=== PATIENT | male | born 1960 | race Caucasian/White ===

== ENCOUNTER 2022-06-01 10:08 | Inpatient (IN) | payer OTHER ==
--- NOTE | 2022-06-01 10:23 | ED ---
General Adult HPI - General Source: patient, RN notes reviewed Mode of arrival: ambulatory Limitations: no limitations <Reji Damico - Last Filed: 06/01/22 10:23> <Jan Worrell - Last Filed: 06/01/22 13:01> - General Stated complaint: weakness Time Seen by Provider: 06/01/22 10:20 - History of Present Illness Initial comments: 62-year-old male presents emergency Department with chief complaint of generalized weakness. Patient states he has not felt well in the last couple days states that worsened overnight. Patient states that he has nausea vomiting,diarrhea. Patient states he has shortness of breath and cough. He states he just feels very rundown. Patient states she does have a history of cardiac stent, prior stroke. Patient has a focal is currently. Patient denies any dysuria hematuria. Patient denies any noted sick contacts. Patient states the weakness has been going on but has gradually worsened last 2 days. (Reji Damico) Dictation was produced using [employer] dictation software. please excuse any grammatical, word or spelling errors. Chief Complaint: 62-year-old male presents emergency department for 2 days of weakness and diaphoresis History of Present Illness: Patient is 60-year-old male has multiple comorbidities. Over the last 48 hours she's been having worsening weakness, URI symptoms. States that he feels so weak that he is unable to perform his activities of daily living. Patient is very worried about symptoms approximately him to stay with family member in case she got worse. Patient been very diaphoretic. He does have a cough that is not productive. Denies any chest pain. No abdominal pain. No obvious sick contacts. The ROS documented in this emergency department record has been reviewed and confirmed by me. Those systems with pertinent positive or negative responses have been documented in the HPI. All other systems are other negative and/or noncontributory. PHYSICAL EXAM: General Impression: Alert and oriented x3, not in acute distress, diaphoretic HEENT: Normocephalic atraumatic, extra-ocular movements intact, pupils equal and reactive to light bilaterally, mucous membranes Cardiovascular: Heart regular rate and rhythm Chest: Able to complete full sentences, no retractions, no tachypnea Abdomen: abdomen soft, non-tender, non-distended, no organomegaly Musculoskeletal: Pulses present and equal in all extremities, no peripheral edema Motor: no focal deficits noted Neurological: CN II-XII grossly intact, no focal motor or sensory deficits noted Skin: Intact with no visualized rashes Psych: Normal affect and mood ED course: 62-year-old male presents with constitutional symptoms for the last 1-2 days. Vital signs upon arrival are within acceptable limits. Is not hypoxic. Laboratory evaluation obtained. In concentration hemoglobin of 18.3. Metabolic panel shows slight elevation of renal markers. Lactic acidosis 4.2. Coronal virus positive. Chest x-ray is nonacute. Nursing notes and chart review was performed Given patient's lactic acidosis and signs of malaise at the bedside to be admitted observation. Patient ordered for antivirals. Patient given fluids. [facility] Dr. Donovan request infectious disease being consulted. Was pt. sent in by a medical professional or institution? @ no Did you speak to anyone other than the patient for history? @ no Did you review nursing and triage notes? @ yes, agree Were old charts reviewed? @ no Differential Diagnosis? @ [facility] Differential Fever: Pneumonia, viral URI, endocarditis, myocarditis, pericarditis, otitis, sinusitis, peritonsillar Abscess, retropharyngeal Abscess, epiglottitis, peritonitis, appendicitis, Yin cystitis, diverticulitis, hepatitis, colitis, UTI, PID, TOA, pyelonephritis, prostatitis, epididymitis, meningitis, encephalitis, pulmonary embolism, CVA, thyroid storm, pancreatitis, adrenal crisis, cavernous sinus thrombosis this is not meant to be an all-inclusive list. EKG interpreted by me (3pts min.)? @ None X-rays interpreted by me (1pt min.)? @See above CT interpreted by me (1pt min.)? @ none U/S interpreted by me (1pt. min.)? @ none What testing was considered but not performed? (CT, X-rays, U/S, labs)? Why? @ CT, X-rays, U/S, labs? Why? What meds were considered but not given? Why? @ none Did you discuss the management of the patient with other professionals? @Dr. Donovan of [facility] hospitalist group Did you reconcile home meds? @ none Was smoking cessation discussed for >3mins.? @ none Was critical care preformed (if so, how long)? @ none Were there social determinants of health that impacted care today? How? ( Homelessness, low income, unemployed, alcoholism, drug addiction, transportation, low edu. Level, literacy, decrease access to med. care, prison, rehab)? @ no Was there de-escalation of care discussed even if they declined? (Discuss DNR or withdrawal of care, Hospice)? @ na What co-morbidities impacted this encounter? (DM, HTN, Smoking, COPD, CAD, Cancer, CVA, Hep., AIDS, mental health diagnosis, sleep apnea, morbid obesity)? @ ma Was patient admitted / discharged? @Admitted Undiagnosed new problem with uncertain prognosis? @ none Drug Therapy requiring intensive monitoring for toxicity (Heparin, Nitro, Insulin, Cardizem)? @ none Were any procedures done? @ none Diagnosis/symptom? @COVID-19, lactic acidosis Acute, or Chronic, or Acute on Chronic? @acute Uncomplicated (without systemic symptoms) or Complicated (systemic symptoms)? @Complicated Side effects of treatment? @ none Exacerbation, Progression, or Severe Exacerbation] @ no Poses a threat to life or bodily function? @ yes (Jan Worrell) - Related Data Previous Rx's Medication Instructions Recorded Molnupiravir [Lagevrio (Eua)] 800 mg PO BID 5 Days #40 cap 06/01/22 Allergies Allergy/AdvReac Type Severity Reaction Status Date / Time Penicillins Allergy Rash/Hives Verified 06/01/22 10:23 Review of Systems ROS Other: All systems not noted in ROS Statement are negative. <Reji Damico - Last Filed: 06/01/22 10:23> ROS Other: All systems not noted in ROS Statement are negative. <Jan Worrell - Last Filed: 06/01/22 13:01> ROS Statement: Those systems with pertinent positive or pertinent negative responses have been documented in the HPI. Course Vital Signs 06/01/22 06/01/22 06/01/22 10:19 11:30 12:00 Temperature 97.4 F L Pulse Rate 102 H 96 93 Respiratory 22 20 18 Rate Blood Pressure 105/75 105/68 87/76 O2 Sat by Pulse 97 95 93 L Oximetry Medical Decision Making - Lab Data Result diagrams: 06/01/22 10:26 06/01/22 10:26 <Jan Worrell - Last Filed: 06/01/22 13:01> - Lab Data Lab Results 06/01/22 06/01/22 06/01/22 Range/Units 10:26 10:26 10:26 WBC 10.5 (3.8-10.6) k/uL RBC 6.23 H (4.30-5.90) m/uL Hgb 18.3 H (13.0-17.5) gm/dL Hct 55.3 H (39.0-53.0) % MCV 88.8 (80.0-100.0) fL MCH 29.3 (25.0-35.0) pg MCHC 33.0 (31.0-37.0) g/dL RDW 13.4 (11.5-15.5) % Plt Count 175 (150-450) k/uL MPV 8.1 Neutrophils % 81 % Lymphocytes % 9 % Monocytes % 7 % Eosinophils % 0 % Basophils % 1 % Neutrophils # 8.5 H (1.3-7.7) k/uL Lymphocytes # 1.0 (1.0-4.8) k/uL Monocytes # 0.7 (0-1.0) k/uL Eosinophils # 0.0 (0-0.7) k/uL Basophils # 0.1 (0-0.2) k/uL Manual Slide Review Performed RBC Morphology Normal Sodium 132 L (137-145) mmol/L Potassium 4.8 (3.5-5.1) mmol/L Chloride 98 (98-107) mmol/L Carbon Dioxide 23 (22-30) mmol/L Anion Gap 11 mmol/L BUN 27 H (9-20) mg/dL Creatinine 1.32 H (0.66-1.25) mg/dL Est GFR (CKD-EPI)AfAm 67 (>60 ml/min/1.73 sqM) Est GFR (CKD-EPI)NonAf 58 (>60 ml/min/1.73 sqM) Glucose 200 H (74-99) mg/dL Plasma Lactic Acid Warren (0.7-2.0) mmol/L Calcium 8.6 (8.4-10.2) mg/dL Magnesium 2.0 (1.6-2.3) mg/dL Total Bilirubin 1.5 H (0.2-1.3) mg/dL AST 30 (17-59) U/L ALT 24 (4-49) U/L Alkaline Phosphatase 92 (38-126) U/L Troponin I (0.000-0.034) ng/mL Total Protein 6.9 (6.3-8.2) g/dL Albumin 3.5 (3.5-5.0) g/dL Influenza Type A (PCR) Not Detected (Not Detectd) Influenza Type B (PCR) Not Detected (Not Detectd) RSV (PCR) Not Detected (Not Detectd) SARS-CoV-2 (PCR) Detected A (Not Detectd) 06/01/22 06/01/22 Range/Units 10:26 10:26 WBC (3.8-10.6) k/uL RBC (4.30-5.90) m/uL Hgb (13.0-17.5) gm/dL Hct (39.0-53.0) % MCV (80.0-100.0) fL MCH (25.0-35.0) pg MCHC (31.0-37.0) g/dL RDW (11.5-15.5) % Plt Count (150-450) k/uL MPV Neutrophils % % Lymphocytes % % Monocytes % % Eosinophils % % Basophils % % Neutrophils # (1.3-7.7) k/uL Lymphocytes # (1.0-4.8) k/uL Monocytes # (0-1.0) k/uL Eosinophils # (0-0.7) k/uL Basophils # (0-0.2) k/uL Manual Slide Review RBC Morphology Sodium (137-145) mmol/L Potassium (3.5-5.1) mmol/L Chloride (98-107) mmol/L Carbon Dioxide (22-30) mmol/L Anion Gap mmol/L BUN (9-20) mg/dL Creatinine (0.66-1.25) mg/dL Est GFR (CKD-EPI)AfAm (>60 ml/min/1.73 sqM) Est GFR (CKD-EPI)NonAf (>60 ml/min/1.73 sqM) Glucose (74-99) mg/dL Plasma Lactic Acid Warren 4.2 H* (0.7-2.0) mmol/L Calcium (8.4-10.2) mg/dL Magnesium (1.6-2.3) mg/dL Total Bilirubin (0.2-1.3) mg/dL AST (17-59) U/L ALT (4-49) U/L Alkaline Phosphatase (38-126) U/L Troponin I 0.020 (0.000-0.034) ng/mL Total Protein (6.3-8.2) g/dL Albumin (3.5-5.0) g/dL Influenza Type A (PCR) (Not Detectd) Influenza Type B (PCR) (Not Detectd) RSV (PCR) (Not Detectd) SARS-CoV-2 (PCR) (Not Detectd) Disposition <Reji Damico - Last Filed: 06/01/22 10:23> Decision Time: 13:01 <Jan Worrell - Last Filed: 06/01/22 13:01> Clinical Impression: Coronavirus infection, Lactic acidosis Disposition: ADMITTED IP TO THIS HOSP Condition: Fair Prescriptions: Molnupiravir [Lagevrio (Eua)] 800 mg PO BID 5 Days #40 cap Referrals: Sandra Abraham DO [Primary Care Provider] - 1-2 days
[2022-06-01 11:07] LABS: Basophils # (A) 0.1 k/uL (0-0.2); Basophils % (A) 1 %; Eosinophils % (A) 0 %; HGB 18.3 gm/dL (13.0-17.5); Lymphocytes % (A) 9 %; MCH 29.3 pg (25.0-35.0); MCV 88.8 fL (80.0-100.0); Mean Platelet Volume 8.1; Monocytes # (A) 0.7 k/uL (0-1.0); Monocytes % (A) 7 %; Neutrophils # (A) 8.5 k/uL (1.3-7.7); Neutrophils % (A) 81 %; Platelet Count 175 k/uL (150-450); RBC 6.23 m/uL (4.30-5.90); RDW 13.4 % (11.5-15.5); WBC 10.5 k/uL (3.8-10.6)
--- NOTE | 2022-06-01 11:07 | XR ---
EXAMINATION TYPE: XR chest 2V DATE OF EXAM: 06/01/2022 COMPARISON: NONE HISTORY: Weakness. TECHNIQUE: Frontal and lateral views of the chest are obtained. FINDINGS: Reticular interstitial changes bilaterally greatest in the lower lungs. Some increased opa city at this level. The cardiac silhouette size is within normal limits. Overlying loop recorder not ed. The osseous structures are demineralized. Advanced degenerative change left glenohumeral joint n oted. IMPRESSION: Suspect chronic parenchymal fibrosis greatest in the lower lungs. Areas of acute infiltr ate in the lower lungs cannot be excluded. Correlate clinically. Correlation with old outside x-ray a nd/or CT would be beneficial.
[2022-06-01 11:08] LABS: HCT 55.3 % (39.0-53.0)
[2022-06-01 11:10] LABS: Albumin 3.5 g/dL (3.5-5.0); Calcium 8.6 mg/dL (8.4-10.2); Potassium 4.8 mmol/L (3.5-5.1); Total Bilirubin 1.5 mg/dL (0.2-1.3); Total Protein 6.9 g/dL (6.3-8.2)
[2022-06-01 11:51] LABS: RBC Morphology Normal
[2022-06-01] MEDS ORDERED: ACETAMINOPHEN TAB 500 MG TAB PO STA (12:03)
[2022-06-01] MEDS ORDERED: NALOXONE 0.4 MG/ML 1 ML VIAL IV PRN (13:02)
[2022-06-01] MEDS ORDERED: SODIUM CHLORIDE 0.9% 1,000 ML IV ONE (13:15)
[2022-06-01] MEDS: SODIUM CHLORIDE 0.9% 1,000 ML IV SCH (14:43)
[2022-06-01] MEDS ORDERED: hydroCHLOROthiazide 12.5 MG CAP PO PRN (14:44)
[2022-06-01] MEDS: ZINC SULFATE 220 MG CAP PO SCH (15:35)
[2022-06-01] MEDS: ENOXAPARIN 40 MG/0.4 ML SYRINGE SQ SCH (15:35)
[2022-06-01] MEDS: ASCORBIC ACID 500 MG TAB PO SCH (15:35)
[2022-06-01] MEDS: CHOLECALCIFEROL 25 MCG (1000 IU) TABLET PO SCH (15:35)
[2022-06-01] MEDS: METOPROLOL TARTRATE 12.5 MG TAB PO SCH (20:29)
[2022-06-01] MEDS: lisinopriL 20 MG TAB PO SCH (20:29)
[2022-06-01] MEDS: DEXAMETHASONE SOD PHOSPHATE 10 MG/ML 1 ML VIAL IV SCH (20:31)
[2022-06-01] MEDS: ATORVASTATIN 40 MG TAB PO SCH (20:31)
[2022-06-01] MEDS: CLOPIDOGREL 75 MG TAB PO SCH (20:31)
--- NOTE | 2022-06-01 22:14 | P.CONS ---
History of Present Illness - Reason for Consult Consult date: 06/01/22 covid 19 Requesting physician: Jan Worrell - Chief Complaint Generalized weakness and not feeling well x few days - History of Present Illness Patient is a 62-year-old male with a past medical history significant for coronary disease CVA TIA former smoker presenting to the ER this morning for evaluation of generalized weakness not feeling well symptom has been going on for the last few days and apparently got worse overnight for the patient presented to hospital patient mention he did have no strength and has been feeling weak all over no energy patient did have some nausea but no vomiting no abdominal pain did have some diarrhea patient also complaining of shortness of breath on minimal exertion even at rest he did have a cough mild to moderate int ensity mostly dry in nature with the symptoms the patient has been evaluated by ER physician on arrival to the ER the patient was afebrile and no fever has been recorded subsequently patient did have elevated lactic acid his white count is normal BUN/creatinine mildly elevated liver enzymes are normal COVID test came back positive RSV influenza was negative patient did have a chest x-ray suspect chronic parenchymal fibrosis areas of acute infiltrate cannot be excluded patient has been admitted to the hospital infectious disease was consulted for further management of underlying COVID-19 infection Review of Systems Positive point has been mentioned in the HPI rest of the systems are negative Past Medical History Past Medical History: Coronary Artery Disease (CAD), CVA/TIA History of Any Multi-Drug Resistant Organisms: None Reported Past Surgical History: Heart Catheterization With Stent Smoking Status: Former smoker Past Alcohol Use History: None Reported Past Drug Use History: None Reported Medications and Allergies Home Medications Medication Instructions Recorded Confirmed Type Atorvastatin [Lipitor] 40 mg PO HS 06/01/22 06/01/22 History Clopidogrel [Plavix] 75 mg PO HS 06/01/22 06/01/22 History Multivitamins, Thera [Multivitamin 1 tab PO DAILY 06/01/22 06/01/22 History (formulary)] Multivitamins, Thera [Multivitamin 1 tab PO HS 06/01/22 06/01/22 History (formulary)] Naproxen Sodium [Aleve] 440 mg PO DAILY PRN 06/01/22 06/01/22 History Amiodarone [Cordarone] 200 mg PO BID #30 tab 06/14/22 Rx Ferrous Sulfate [Iron (65 MG 325 mg PO BID-W/MEALS #60 tab 06/14/22 Rx Elemental)] Metoprolol Tartrate [Lopressor] 25 mg PO BID #60 tab 06/14/22 Rx Nystatin 100,000 Unit/ml Susp 500,000 unit PO QID 7 Days #140 ml 06/14/22 Rx [Mycostatin Oral Susp] lisinopriL [Zestril] 20 mg PO HS #30 tab 06/14/22 Rx Allergies Allergy/AdvReac Type Severity Reaction Status Date / Time Penicillins Allergy Rash/Hives Verified 06/01/22 13:59 Physical Exam Vitals: Vital Signs Temp Pulse Resp BP Pulse Ox 06/01/22 14:40 86 24 96/73 95 06/01/22 14:30 88 21 96/73 95 06/01/22 14:20 84 21 96/73 96 06/01/22 14:10 97.8 F 93 15 96/73 94 L 06/01/22 13:10 79 14 93/67 97 06/01/22 12:50 87/76 95 06/01/22 12:40 87/76 95 06/01/22 12:30 87/76 06/01/22 12:20 87/76 06/01/22 12:10 87/76 96 06/01/22 12:00 93 18 105/68 93 L 06/01/22 11:30 96 20 105/68 95 06/01/22 10:19 97.4 F L 102 H 22 105/75 97 Intake and Output 06/01/22 06/01/22 06/01/22 06:59 14:59 22:59 Other: Weight 102.058 kg GENERAL DESCRIPTION: Middle-aged male lying in bed, no distress. No tachypnea or accessory muscle of respiration use. HEENT: Shows Pallor , no scleral icterus. Oral mucous membrane is dry. No pharyngeal erythema or thrush NECK: Trachea central, no thyromegaly. LUNGS: Unlabored breathing. Coarse breath sounds bilaterally. HEART: S1, S2, regular rate and rhythm. No loud murmur ABDOMEN: Soft, no tenderness , guarding or rigidity, no organomegaly EXTREMITIES: No edema of feet. SKIN: No rash, no masses palpable. NEUROLOGICAL: The patient is awake, alert, oriented x3, mood and affect normal. Results CBC & Chem 7: 06/14/22 04:33 01/16/23 04:33 Labs: Abnormal Lab Results - Last 24 Hours (Table) 06/01/22 06/01/22 06/01/22 Range/Units 10:26 10:26 10:26 RBC 6.23 H (4.30-5.90) m/uL Hgb 18.3 H (13.0-17.5) gm/dL Hct 55.3 H (39.0-53.0) % Neutrophils # 8.5 H (1.3-7.7) k/uL Sodium 132 L (137-145) mmol/L BUN 27 H (9-20) mg/dL Creatinine 1.32 H (0.66-1.25) mg/dL Glucose 200 H (74-99) mg/dL Plasma Lactic Acid Warren (0.7-2.0) mmol/L Total Bilirubin 1.5 H (0.2-1.3) mg/dL SARS-CoV-2 (PCR) Detected A (Not Detectd) 06/01/22 06/01/22 Range/Units 10:26 13:26 RBC (4.30-5.90) m/uL Hgb (13.0-17.5) gm/dL Hct (39.0-53.0) % Neutrophils # (1.3-7.7) k/uL Sodium (137-145) mmol/L BUN (9-20) mg/dL Creatinine (0.66-1.25) mg/dL Glucose (74-99) mg/dL Plasma Lactic Acid Warren 4.2 H* 3.6 H* (0.7-2.0) mmol/L Total Bilirubin (0.2-1.3) mg/dL SARS-CoV-2 (PCR) (Not Detectd) Assessment and Plan (1) Pneumonia due to COVID-19 virus Current Visit: Yes Status: Acute Code(s): U07.1 - COVID-19; J12.82 - PNEUMONIA DUE TO CORONAVIRUS DISEASE 2018 SNOMED Code(s): 324920088723409316 Plan: 1patient presented to hospital with generalized weakness which is likely multifactorial in this patient with a likely component of dehydration with elevated BUN/creatinine and a component of COVID-19 pneumonia, however the patient is not running any fever and chest x-ray did not show significant groundglass opacities pathognomonic for COVID-19 infection. 2patient to continue with the Lovenox and ascorbic acid we will add dexamethasone and continue with IV fluid. 3we will check his inflammatory markers and a chest x-ray if any worsening may qualify for remdesivir. 4droplet isolation. We will follow on clinical condition and cultures to further adjust medication if needed Thank you for this consultation we will follow the patient along with you Time with Patient: Greater than 30
--- NOTE | 2022-06-01 23:33 | P.HPIM ---
History of Present Illness H&P Date: 06/01/22 Chief Complaint: Weakness 62-year-old male with a past medical history significant for coronary disease CVA TIA former smoker presenting to the ER this morning for evaluation of generalized weakness not feeling well symptom has been going on for the last few days and apparently got worse overnight for the patient presented to hospital patient mention he did have no strength and has been feeling weak all over no energy patient did have some nausea but no vomiting no abdominal pain did have some diarrhea patient also complaining of shortness of breath on minima l exertion even at rest he did have a cough mild to moderate intensity mostly dry in nature with the symptoms the patient has been evaluated by ER physician on arrival to the ER the patient was afebrile and no fever has been recorded subsequently patient did have elevated lactic acid his white count is normal BUN/creatinine mildly elevated liver enzymes are normal COVID test came back positive RSV influenza was negative patient did have a chest x-ray suspect chronic parenchymal fibrosis areas of acute infiltrate cannot be excluded patient has been admitted to the hospital Review of Systems REVIEW OF SYSTEMS: CONSTITUTIONAL: No fever, no malaise, no fatigue. HEENT: No recent visual problems or hearing problems. Denied any sore throat. CARDIOVASCULAR: No chest pain, orthopnea, PND, no palpitations, no syncope. PULMONARY: No shortness of breath, no cough, no hemoptysis. GASTROINTESTINAL: No diarrhea, no nausea, no vomiting, no abdominal pain. NEUROLOGICAL: No headaches, no weakness, no numbness. HEMATOLOGICAL: Denies any bleeding or petechiae. GENITOURINARY: Denies any burning micturition, frequency, or urgency. MUSCULOSKELETAL/RHEUMATOLOGICAL: Denies any joint pain, swelling, or any muscle pain. ENDOCRINE: Denies any polyuria or polydipsia. The rest of the 14-point review of systems is negative. Past Medical History Past Medical History: Coronary Artery Disease (CAD), CVA/TIA History of Any Multi-Drug Resistant Organisms: None Reported Past Surgical History: Heart Catheterization With Stent Smoking Status: Former smoker Past Alcohol Use History: None Reported Past Drug Use History: None Reported Medications and Allergies Home Medications Medication Instructions Recorded Confirmed Type Aspirin EC [Ecotrin Low Dose] 81 mg PO DAILY 06/01/22 06/01/22 History Atorvastatin [Lipitor] 40 mg PO HS 06/01/22 06/01/22 History Clopidogrel [Plavix] 75 mg PO HS 06/01/22 06/01/22 History Metoprolol Tartrate [Lopressor] 12.5 mg PO HS 06/01/22 06/01/22 History Molnupiravir [Lagevrio (Eua)] 800 mg PO BID 5 Days #40 cap 06/01/22 Rx Multivitamins, Thera [Multivitamin 1 tab PO DAILY 06/01/22 06/01/22 History (formulary)] Multivitamins, Thera [Multivitamin 1 tab PO HS 06/01/22 06/01/22 History (formulary)] Naproxen Sodium [Aleve] 440 mg PO DAILY PRN 06/01/22 06/01/22 History hydroCHLOROthiazide 12.5 mg PO BID PRN 06/01/22 06/01/22 History lisinopriL 40 mg PO HS 06/01/22 06/01/22 History Allergies Allergy/AdvReac Type Severity Reaction Status Date / Time Penicillins Allergy Rash/Hives Verified 06/01/22 13:59 Physical Exam Vitals: Vital Signs Temp Pulse Resp BP Pulse Ox 06/01/22 13:10 79 14 93/67 97 06/01/22 12:50 87/76 95 06/01/22 12:40 87/76 95 06/01/22 12:30 87/76 06/01/22 12:20 87/76 06/01/22 12:10 87/76 06/01/22 12:00 93 18 105/68 93 L 06/01/22 11:30 96 20 105/68 95 06/01/22 10:19 97.4 F L 102 H 22 105/75 97 Intake and Output 05/31/22 06/01/22 06/01/22 22:59 06:59 14:59 Other: Weight 102.058 kg Results CBC & Chem 7: 06/01/22 10:26 06/01/22 10:26 Labs: Abnormal Lab Results - Last 24 Hours (Table) 06/01/22 06/01/22 06/01/22 Range/Units 10:26 10:26 10:26 RBC 6.23 H (4.30-5.90) m/uL Hgb 18.3 H (13.0-17.5) gm/dL Hct 55.3 H (39.0-53.0) % Neutrophils # 8.5 H (1.3-7.7) k/uL Sodium 132 L (137-145) mmol/L BUN 27 H (9-20) mg/dL Creatinine 1.32 H (0.66-1.25) mg/dL Glucose 200 H (74-99) mg/dL Plasma Lactic Acid Warren (0.7-2.0) mmol/L Total Bilirubin 1.5 H (0.2-1.3) mg/dL SARS-CoV-2 (PCR) Detected A (Not Detectd) 06/01/22 06/01/22 Range/Units 10:26 13:26 RBC (4.30-5.90) m/uL Hgb (13.0-17.5) gm/dL Hct (39.0-53.0) % Neutrophils # (1.3-7.7) k/uL Sodium (137-145) mmol/L BUN (9-20) mg/dL Creatinine (0.66-1.25) mg/dL Glucose (74-99) mg/dL Plasma Lactic Acid Warren 4.2 H* 3.6 H* (0.7-2.0) mmol/L Total Bilirubin (0.2-1.3) mg/dL SARS-CoV-2 (PCR) (Not Detectd) Assessment and Plan Assessment: 1. Generalized weakness - Likely multifactorial; related to COVID-19 right ear infection and acute renal injury 2. COVID-19 infection; ID has been consulted and patient has been placed on COVID-19 vitamin cocktail along with subcu Lovenox; ID to recommend on need for antiviral therapy - We will monitor inflammatory markers periodically 3. Acute renal injury; cautious IV fluid hydration with normal saline; we will monitor strict MIRA's, daily weights, renal function and electrolytes; avoid nephrotoxins and hypotension 4. Lactic acidosis; likely related to acute renal injury and COVID-19 infection; continue with plan of care as indicated above and monitor lactic acid levels closely 5. Hyperbilirubinemia; possibly related to COVID-19 infection; we will monitor hepatic function panel and initiate further workup if remains elevated DVT prophylaxis; SCDs/subcu Lovenox CODE STATUS; full code
[2022-06-02] MEDS: ZINC SULFATE 220 MG CAP PO SCH (08:14)
[2022-06-02] MEDS: MULTIVITAMINS, THERA 1 EACH TAB PO SCH (08:14)
[2022-06-02] MEDS: ASCORBIC ACID 500 MG TAB PO SCH (08:14)
[2022-06-02] MEDS: DEXAMETHASONE SOD PHOSPHATE 10 MG/ML 1 ML VIAL IV SCH (08:14)
[2022-06-02] MEDS: ASPIRIN 81 MG PO SCH (08:14)
[2022-06-02] MEDS: ENOXAPARIN 40 MG/0.4 ML SYRINGE SQ SCH (08:14)
[2022-06-02] MEDS: CHOLECALCIFEROL 25 MCG (1000 IU) TABLET PO SCH (08:14)
[2022-06-02 08:38] LABS: Basophils # (A) 0.01 X 10*3/uL (0.00-0.10); Basophils % (A) 0.1 %; Eosinophils # (A) 0 X 10*3/uL (0.04-0.35); Eosinophils % (A) 0 %; HCT 48.5 % (39.6-50.0); HGB 16.4 g/dL (13.0-17.0); Immature Grans, Automated 0.5 %; Lymphocytes % (A) 9.2 %; MCH 28.7 pg (27.0-32.0); MCHC 33.8 g/dL (32.0-37.0); MCV 84.8 fL (80.0-97.0); Mean Platelet Volume 9.9 fL (9.5-12.2); Monocytes # (A) 0.76 X 10*3/uL (0.20-1.00); Monocytes % (A) 5.4 %; NRBC Per 100 WBC 0 /100 WBCS (0.0-0.0); Neutrophils # (A) 11.98 X 10*3/uL (1.80-7.70); Neutrophils % (A) 84.8 %; Platelet Count 178 X 10*3/uL (140-440); RBC 5.72 X 10*6/uL (4.40-5.60); WBC 14.12 X 10*3/uL (4.50-10.00)
[2022-06-02 09:33] LABS: African American GFR (CKD) 52.7 (60.0-200.0); Albumin 3.1 g/dL (3.8-4.9); Albumin/Globulin Ratio 1.15 (1.60-3.17); Anion Gap 15.6 mmol/L (10.00-18.00); BUN/Creat Ratio 27.63 Ratio (12.00-20.00); Blood Urea Nitrogen 44.2 mg/dL (9.0-27.0); C Reactive Protein 3.5 mg/dL (0.00-0.80); Calcium 8.7 mg/dL (8.7-10.3); Carbon Dioxide 18.4 mmol/L (20.0-27.5); Globulin 2.7 g/dL (1.6-3.3); Non-African American GFR(CKD) 45.5 (60.0-200.0); Potassium 4.7 mmol/L (3.5-5.5); Total Bilirubin 0.8 mg/dL (0.30-1.20); Total Protein 5.8 g/dL (6.2-8.2)
--- NOTE | 2022-06-02 12:16 | XR ---
EXAMINATION TYPE: XR chest 1V portable DATE OF EXAM: 06/02/2022 COMPARISON: 06/01/2022 INDICATION: Pneumonia, short of breath TECHNIQUE: Single frontal view of the chest is obtained. FINDINGS: The heart size is normal. The pulmonary vasculature is normal. Mild bibasilar infiltrates are present. This is nonspecific. Differential can include atelectasis, pn eumonia and atypical pneumonia. IMPRESSION: 1. Mild bibasilar infiltrates, improved from comparison. Differential diagnosis can include atelectas is pneumonia and atypical pneumonia.
[2022-06-02] MEDS ORDERED: FUROSEMIDE 10 MG/ML 2 ML VIAL IV ONE (12:48)
--- NOTE | 2022-06-02 12:52 | P.PN ---
Subjective Progress Note Date: 06/02/22 Principal diagnosis: Covid 19 Pneumonia Patient is a 62-year-old male with a past medical history significant for coronary disease CVA TIA former smoker presenting to the ER this morning for evaluation of generalized weakness not feeling well symptom has been going on f or the last few days, patient has been diagnosed with covid 19 pneumonia. On today's evaluation that is 06/02/2022, the patient is afebrile, the patient is a complaining of more shortness of breath and apparently the patient is requiring 4 L nasal cannula compared to 2 L yesterday patient denies having any chest pain he did have a cough or bring up any sputum no nausea no vomiting no abdominal pain or diarrhea remains to be very weak and no energy Objective - Vital Signs Vital signs: Vital Signs Temp 97.7 F 06/02/22 07:00 Pulse 108 H 06/02/22 08:00 Resp 22 06/02/22 08:00 BP 101/68 06/02/22 07:00 Pulse Ox 92 L 06/02/22 07:00 FiO2 Intake & Output 06/01/22 06/02/22 06/02/22 18:59 06:59 18:59 Weight 102.058 kg 102.058 kg Other: Voiding Method Bedside Commode Bedside Commode Urinal Urinal # Voids 0 - Exam GENERAL DESCRIPTION: Middle-aged male lying in bed in no distress RESPIRATORY SYSTEM: Unlabored breathing , decreased intensity of breath sounds HEART: S1 S2 regular rate and rhythm , ABDOMEN: Soft , no tenderness EXTREMITIES: No edema feet - Labs CBC & Chem 7: 06/02/22 05:16 06/02/22 05:16 Labs: Abnormal Lab Results - Last 24 Hours (Table) 06/01/22 06/01/22 06/01/22 Range/Units 13:26 17:29 20:26 WBC (4.50-10.00) X 10*3/uL RBC (4.40-5.60) X 10*6/uL Immature Gran # (0.00-0.04) X 10*3/uL Neutrophils # (1.80-7.70) X 10*3/uL Eosinophils # (0.04-0.35) X 10*3/uL Sodium (135-145) mmol/L Carbon Dioxide (20.0-27.5) mmol/L BUN (9.0-27.0) mg/dL Creatinine (0.6-1.5) mg/dL Est GFR (CKD-EPI)AfAm (60.0-200.0) Est GFR (CKD-EPI)NonAf (60.0-200.0) BUN/Creatinine Ratio (12.00-20.00) Ratio Glucose (70-110) mg/dL Plasma Lactic Acid Warren 3.6 H* 3.3 H* 2.6 H* (0.7-2.0) mmol/L C-Reactive Protein (0.00-0.80) mg/dL Total Protein (6.2-8.2) g/dL Albumin (3.8-4.9) g/dL Albumin/Globulin Ratio (1.60-3.17) g/dL Procalcitonin (0.02-0.09) ng/mL 06/02/22 06/02/22 06/02/22 Range/Units 05:16 05:16 05:16 WBC 14.12 H (4.50-10.00) X 10*3/uL RBC 5.72 H (4.40-5.60) X 10*6/uL Immature Gran # 0.07 H (0.00-0.04) X 10*3/uL Neutrophils # 11.98 H (1.80-7.70) X 10*3/uL Eosinophils # 0 L (0.04-0.35) X 10*3/uL Sodium 133 L (135-145) mmol/L Carbon Dioxide 18.4 L (20.0-27.5) mmol/L BUN 44.2 H (9.0-27.0) mg/dL Creatinine 1.6 H (0.6-1.5) mg/dL Est GFR (CKD-EPI)AfAm 52.7 L (60.0-200.0) Est GFR (CKD-EPI)NonAf 45.5 L (60.0-200.0) BUN/Creatinine Ratio 27.63 H (12.00-20.00) Ratio Glucose 158 H (70-110) mg/dL Plasma Lactic Acid Warren (0.7-2.0) mmol/L C-Reactive Protein 3.50 H (0.00-0.80) mg/dL Total Protein 5.8 L (6.2-8.2) g/dL Albumin 3.1 L (3.8-4.9) g/dL Albumin/Globulin Ratio 1.15 L (1.60-3.17) g/dL Procalcitonin 0.14 H (0.02-0.09) ng/mL Assessment and Plan (1) Coronavirus infection Current Visit: Yes Status: Acute Code(s): B34.2 - CORONAVIRUS INFECTION, UNSPECIFIED SNOMED Code(s): 119216102 Plan: 1patient presented to hospital with generalized weakness which is likely multifactorial in this patient with a likely component of dehydration with elevated BUN/creatinine and a component of COVID-19 pneumonia, however the patient is not running any fever and chest x-ray repeated 06/02/2022 is showing bibasilar infiltrate and the patient is currently requiring more supplemental oxygen than yesterday. 2patient to continue with the Lovenox and ascorbic acid and dexamethasone however we will add Remdisivir for possible worsening of his underlying covid 19 pneumonia Time with Patient: Less than 30
[2022-06-02] MEDS ORDERED: REMDESIVIR 200 MG in SODIUM CHLORIDE 0.9% 250 ML IVPB ONE (14:00)
[2022-06-02] MEDS: SODIUM CHLORIDE 0.9% 1,000 ML IV SCH (15:33)
--- NOTE | 2022-06-02 17:13 | P.PN ---
Subjective Progress Note Date: 06/02/22 62-year-old male with a past medical history significant for coronary disease CVA TIA former smoker presenting to the ER this morning for evaluation of generalized weakness not feeling well symptom has been going on for the last few days and apparently got worse overnight for the patient presented to hospital patient mention he did have no strength and has been feeling weak all over no energy patient did have some nausea but no vomiting no abdominal pain did have some diarrhea patient also complaining of shortness of breath on minimal exertion even at rest he did have a cough mild to moderate intensity mostly dry in nature with the symptoms the patient has been evaluated by ER physician on arrival to the ER the patient was afebrile and no fever has been recorded subsequently patient did have elevated lactic acid his white count is normal BUN/creatinine mildly elevated liver enzymes are normal COVID test came back positive RSV influenza was negative patient did have a chest x-ray suspect chronic parenchymal fibrosis areas of acute infiltrate cannot be excluded patient has been admitted to the hospital patient presented to hospital with generalized weakness which is likely mul tifactorial in this patient with a likely component of dehydration with elevated BUN/creatinine and a component of COVID-19 pneumonia, however the patient is not running any fever and chest x-ray repeated 06/02/2022 is showing bibasilar infiltrate and the patient is currently requiring more supplemental oxygen than yesterday. patient to continue with the Lovenox and ascorbic acid and dexamethasone however we will add Remdisivir for possible worsening of his underlying covid 19 pneumonia - We will give one-time dose of Lasix 20 mg IV 1 Objective - Vital Signs Vital signs: Vital Signs Temp 97.7 F 06/02/22 07:00 Pulse 108 H 06/02/22 08:00 Resp 22 06/02/22 08:00 BP 101/68 06/02/22 07:00 Pulse Ox 92 L 06/02/22 07:00 FiO2 Intake & Output 06/01/22 06/02/22 06/02/22 18:59 06:59 18:59 Weight 102.058 kg 102.058 kg Other: Voiding Method Bedside Commode Bedside Commode Urinal Urinal # Voids 0 - Exam PHYSICAL EXAMINATION: GENERAL: The patient is alert and oriented x3, not in any acute distress. Well developed, well nourished. HEENT: Pupils are round and equally reacting to light. EOMI. No scleral icterus. No conjunctival pallor. Normocephalic, atraumatic. No pharyngeal erythema. No thyromegaly. CARDIOVASCULAR: S1 and S2 present. No murmurs, rubs, or gallops. PULMONARY: Chest is clear to auscultation, no wheezing or crackles. ABDOMEN: Soft, nontender, nondistended, normoactive bowel sounds. No palpable organomegaly. MUSCULOSKELETAL: No joint swelling or deformity. EXTREMITIES: No cyanosis, clubbing, or pedal edema. NEUROLOGICAL: Gross neurological examination did not reveal any focal deficits. SKIN: No rashes. - Labs CBC & Chem 7: 06/02/22 05:16 06/02/22 05:16 Labs: Abnormal Lab Results - Last 24 Hours (Table) 06/01/22 06/01/22 06/01/22 Range/Units 13:26 17:29 20:26 WBC (4.50-10.00) X 10*3/uL RBC (4.40-5.60) X 10*6/uL Immature Gran # (0.00-0.04) X 10*3/uL Neutrophils # (1.80-7.70) X 10*3/uL Eosinophils # (0.04-0.35) X 10*3/uL Sodium (135-145) mmol/L Carbon Dioxide (20.0-27.5) mmol/L BUN (9.0-27.0) mg/dL Creatinine (0.6-1.5) mg/dL Est GFR (CKD-EPI)AfAm (60.0-200.0) Est GFR (CKD-EPI)NonAf (60.0-200.0) BUN/Creatinine Ratio (12.00-20.00) Ratio Glucose (70-110) mg/dL Plasma Lactic Acid Warren 3.6 H* 3.3 H* 2.6 H* (0.7-2.0) mmol/L C-Reactive Protein (0.00-0.80) mg/dL Total Protein (6.2-8.2) g/dL Albumin (3.8-4.9) g/dL Albumin/Globulin Ratio (1.60-3.17) g/dL Procalcitonin (0.02-0.09) ng/mL 06/02/22 06/02/22 06/02/22 Range/Units 05:16 05:16 05:16 WBC 14.12 H (4.50-10.00) X 10*3/uL RBC 5.72 H (4.40-5.60) X 10*6/uL Immature Gran # 0.07 H (0.00-0.04) X 10*3/uL Neutrophils # 11.98 H (1.80-7.70) X 10*3/uL Eosinophils # 0 L (0.04-0.35) X 10*3/uL Sodium 133 L (135-145) mmol/L Carbon Dioxide 18.4 L (20.0-27.5) mmol/L BUN 44.2 H (9.0-27.0) mg/dL Creatinine 1.6 H (0.6-1.5) mg/dL Est GFR (CKD-EPI)AfAm 52.7 L (60.0-200.0) Est GFR (CKD-EPI)NonAf 45.5 L (60.0-200.0) BUN/Creatinine Ratio 27.63 H (12.00-20.00) Ratio Glucose 158 H (70-110) mg/dL Plasma Lactic Acid Warren (0.7-2.0) mmol/L C-Reactive Protein 3.50 H (0.00-0.80) mg/dL Total Protein 5.8 L (6.2-8.2) g/dL Albumin 3.1 L (3.8-4.9) g/dL Albumin/Globulin Ratio 1.15 L (1.60-3.17) g/dL Procalcitonin 0.14 H (0.02-0.09) ng/mL Assessment and Plan Assessment: 1. Generalized weakness - Likely multifactorial; related to COVID-19 right ear infection and acute renal injury 2. COVID-19 infection; ID has been consulted and patient has been placed on COVID-19 vitamin cocktail along with subcu Lovenox; ID to recommend on need for antiviral therapy - We will monitor inflammatory markers periodically 3. Acute renal injury; cautious IV fluid hydration with normal saline; we will monitor strict MIRA's, daily weights, renal function and electrolytes; avoid nephrotoxins and hypotension 4. Lactic acidosis; likely related to acute renal injury and COVID-19 infection; continue with plan of care as indicated above and monitor lactic acid levels closely 5. Hyperbilirubinemia; possibly related to COVID-19 infection; we will monitor hepatic function panel and initiate further workup if remains elevated DVT prophylaxis; SCDs/subcu Lovenox CODE STATUS; full code
[2022-06-02] MEDS: ACETAMINOPHEN TAB 325 MG TAB PO PRN (17:32)
[2022-06-02] MEDS: METOPROLOL TARTRATE 12.5 MG TAB PO SCH ×2 (21:06→21:19)
[2022-06-02] MEDS: lisinopriL 20 MG TAB PO SCH (21:06)
[2022-06-02] MEDS: CLOPIDOGREL 75 MG TAB PO SCH (21:19)
[2022-06-02] MEDS: ATORVASTATIN 40 MG TAB PO SCH (21:19)
[2022-06-02] MEDS ORDERED: DILTIAZEM DRIP BOLUS FROM BAG 1 MG SOLN IV ONE ×2 (21:41→22:56)
[2022-06-02] MEDS ORDERED: DILTIAZEM 125 MG in SODIUM CHLORIDE 0.9% 100 ML IV SCH (22:00)
[2022-06-02] MEDS ORDERED: SODIUM CHLORIDE 0.9% 500 ML 500 ML IV ONE (22:57)
[2022-06-02] MEDS: FAMOTIDINE 20 MG/2 ML VIAL IV SCH (23:09)
[2022-06-03] MEDS ORDERED: DEXTROSE 5% IN WATER 100 ML with AMIODARONE 150 MG IV ONE ×2
[2022-06-03] MEDS ORDERED: AMIODARONE 360 MG in DEXTROSE 5% IN WATER 200 ML IV ONE ×2 (00:15)
[2022-06-03 00:46] LABS: Glucose,Whole Blood 159 mg/dL (70-110)
[2022-06-03 01:05] LABS: Glucose,Whole Blood 138 mg/dL (70-110)
[2022-06-03 02:04] LABS: Magnesium 2.2 mg/dL (1.6-2.3); Potassium 4.6 mmol/L (3.5-5.1)
[2022-06-03] MEDS: AMIODARONE 450 MG in DEXTROSE 5% IN WATER 250 ML IV SCH ×4 (02:57→13:47)
[2022-06-03 06:22] LABS: Basophils # (A) 0.1 k/uL (0-0.2); Basophils % (A) 0 %; Eosinophils % (A) 0 %; HCT 48.8 % (39.0-53.0); HGB 16.1 gm/dL (13.0-17.5); Lymphocytes # (A) 1.3 k/uL (1.0-4.8); Lymphocytes % (A) 5 %; MCH 29.6 pg (25.0-35.0); MCHC 33.1 g/dL (31.0-37.0); MCV 89.5 fL (80.0-100.0); Monocytes # (A) 1.6 k/uL (0-1.0); Monocytes % (A) 6 %; Neutrophils # (A) 23.8 k/uL (1.3-7.7); Neutrophils % (A) 88 %; Platelet Count 113 k/uL (150-450); RBC 5.45 m/uL (4.30-5.90); RDW 13.7 % (11.5-15.5); WBC 27.2 k/uL (3.8-10.6)
--- NOTE | 2022-06-03 06:57 | P.CNPUL ---
History of Present Illness Consult date: 06/03/22 Reason for consult: dyspnea, pneumonia History of present illness: 62-year-old male patient of the transferred to the intensive care unit yesterday evening for transfusion yesterday a chest fibrillation and rapid ventricular response. Noted the patient was hospitalized on 06/01/2022 for generalized weakness and Covid 19 infection. He is known to have coronary artery disease, previous CVA, and hyperlipidemia. Noted the patient came into the hospital and he was already receiving MOlnipiravir for Covid 19 infection on outpatient basis. He was initially on 2 L of oxygen by nasal cannula, admission. His chest x-ray showed some limited bibasilar pulmonary infiltration without any clear airspace disease of consolidation. And with the ongoing into fibrillation RVR, the patient became more hypoxic and currently is on 15 L high flow oxygen. In terms of his atrial fibrillation, the patient remains in A. fib RVR. Overnight, he was given Cardizem which essentially dropped his pressure to 80/60 and following that, the Cardizem drip was discontinued and the patient was given 1 L bolus, Lopressor bolus, and later on switched to amiodarone per protocol. He was given a bolus of amiodarone 150 mg and currently is on amiodarone at 0.5 g milligrams per minutes. He is also on anticoagulations those has been modified from a prophylactic dose to therapeutic dose of 100 mg subcu every 12 hours. No previous echocardiogram and an echocardiogram will be obtained today. In terms of his Covid 19 infection, the patient was started on Decadron and is currently receiving Decadron 6 mg IV every 24 hours. He is also on Remdesivir per protocol. The patient is also on IV fluids with normal saline at the rate of 20 mL an hour. Blood work from today shows WBC count of 27.2 with a hemoglobin of 16.1 and a platelet count of 113. Note that his pro calcitonin level at time of admission was 0.14. His CRP level was at 3.5. His lactic acid was at 2.6 and dropped down to 1.8 and currently is at 2.2. Awaiting follow-up labs from today. Noted the patient had an acute kidney injury and the creatinine was up to 1.6 from yesterday with a BUN of 44 and a serum bicarb of 18 and his sodium level of 133. His potassium level is at 4.6. Noted during this current admission, the patient received a total of 3 L of IV fluid boluses in the form of normal saline. Review of Systems Constitutional: Reports fatigue, Reports weakness Eyes: denies as per HPI, denies blurred vision, denies bulging eye, denies decreased vision, denies diplopia, denies discharge, denies dry eye, denies irritation, denies itching, denies pain, denies photophobia, denies loss of peripheral vision, denies loss of vision, denies tunnel vision/blind spots Ears: deny: decreased hearing, ear discharge, earache, tinnitus Ears, nose, mouth and throat: Reports as per HPI Breasts: absent: as per HPI, gynecomastia Cardiovascular: Reports decreased exercise tolerance, Reports dyspnea on exertion, Reports irregular heart beat Respiratory: Reports dyspnea Gastrointestinal: Reports as per HPI Genitourinary: Reports as per HPI Musculoskeletal: Reports as per HPI Musculoskeletal: absent: ankle pain, ankle stiffness, ankle swelling Integumentary: Reports as per HPI Neurological: Reports as per HPI Psychiatric: Reports as per HPI Endocrine: Reports as per HPI Hematologic/Lymphatic: Reports as per HPI Allergic/Immunologic: Reports as per HPI Past Medical History Past Medical History: Coronary Artery Disease (CAD), CVA/TIA History of Any Multi-Drug Resistant Organisms: None Reported Past Surgical History: Heart Catheterization With Stent Date of Last Stent Placement:: 2021 Smoking Status: Former smoker Past Alcohol Use History: None Reported Past Drug Use History: None Reported Medications and Allergies Home Medications Medication Instructions Recorded Confirmed Type Aspirin EC [Ecotrin Low Dose] 81 mg PO DAILY 06/01/22 06/01/22 History Atorvastatin [Lipitor] 40 mg PO HS 06/01/22 06/01/22 History Clopidogrel [Plavix] 75 mg PO HS 06/01/22 06/01/22 History Metoprolol Tartrate [Lopressor] 12.5 mg PO HS 06/01/22 06/01/22 History Molnupiravir [Lagevrio (Eua)] 800 mg PO BID 5 Days #40 cap 06/01/22 Rx Multivitamins, Thera [Multivitamin 1 tab PO DAILY 06/01/22 06/01/22 History (formulary)] Multivitamins, Thera [Multivitamin 1 tab PO HS 06/01/22 06/01/22 History (formulary)] Naproxen Sodium [Aleve] 440 mg PO DAILY PRN 06/01/22 06/01/22 History hydroCHLOROthiazide 12.5 mg PO BID PRN 06/01/22 06/01/22 History lisinopriL 40 mg PO HS 06/01/22 06/01/22 History Allergies Allergy/AdvReac Type Severity Reaction Status Date / Time Penicillins Allergy Rash/Hives Verified 06/01/22 13:59 Physical Exam Vitals: Vital Signs Temp Pulse Pulse Pulse Resp BP BP 06/03/22 05:00 135 H 20 94/66 06/03/22 04:45 140 H 18 81/67 06/03/22 04:30 131 H 17 89/59 06/03/22 04:15 142 H 22 88/58 06/03/22 04:00 134 H 17 96/78 06/03/22 03:45 144 H 21 87/75 06/03/22 03:30 144 H 11 L 98/72 06/03/22 03:15 140 H 22 109/74 06/03/22 03:00 144 H 25 H 99/73 06/03/22 02:45 137 H 24 88/73 06/03/22 02:30 135 H 10 L 81/66 06/03/22 02:15 138 H 20 86/74 06/03/22 02:00 131 H 14 86/68 06/03/22 01:45 134 H 22 90/79 06/03/22 01:30 130 H 13 84/68 06/03/22 01:15 97.7 F 131 H 8 L 101/87 06/03/22 00:46 127 H 68/20 06/03/22 00:39 126 H 19 78/29 06/02/22 23:31 97.4 F L 138 H 18 85/59 06/02/22 23:15 136 H 91/55 06/02/22 23:00 143 H 99/58 06/02/22 22:40 141 H 87/63 06/02/22 22:15 144 H 101/49 06/02/22 22:00 97.5 F L 152 H 20 90/66 06/02/22 21:43 136 H 112/84 06/02/22 21:11 156 H 36 H 06/02/22 20:57 97.5 F L 46 L 36 H 82/60 06/02/22 15:00 97.7 F 69 22 109/78 06/02/22 14:00 108 H 22 06/02/22 08:00 108 H 22 06/02/22 07:00 97.7 F 108 H 22 101/68 Pulse Ox 06/03/22 05:00 96 06/03/22 04:45 98 06/03/22 04:30 97 06/03/22 04:15 99 06/03/22 04:00 98 06/03/22 03:45 90 L 06/03/22 03:30 91 L 06/03/22 03:15 90 L 06/03/22 03:00 88 L 06/03/22 02:45 95 06/03/22 02:30 94 L 06/03/22 02:15 93 L 06/03/22 02:00 95 06/03/22 01:45 95 06/03/22 01:30 06/03/22 01:15 96 06/03/22 00:46 06/03/22 00:39 94 L 06/02/22 23:31 96 06/02/22 23:15 06/02/22 23:00 06/02/22 22:40 06/02/22 22:15 06/02/22 22:00 98 06/02/22 21:43 06/02/22 21:11 06/02/22 20:57 95 06/02/22 15:00 95 06/02/22 14:00 06/02/22 08:00 06/02/22 07:00 92 L Intake and Output 06/02/22 06/02/22 06/03/22 14:59 22:59 06:59 Intake Total 1010 90 Output Total 600 100 Balance 410 -10 Intake: IV 10 90 Invasive Line 1 10 10 Sodium Chloride 0.9% 1, 80 000 ml @ 20 mls/hr IV . Q24H [facility] Rx#:[id number] Intake, IV Titration 1000 Amount Sodium Chloride 0.9% 1, 1000 000 ml @ 20 mls/hr IV . Q24H [facility] Rx#:[id number] Output: Urine 600 100 Other: Voiding Method Bedside Commode Urinal Urinal Urinal # Voids 1 # Bowel Movements 1 1 Gen. appearance the patient is a mild degree of respiratory distress currently on 15 L of oxygen by nasal cannula, slightly diaphoretic, not using accessory muscles of breathing, slightly tachypneic, currently tachycardic with a heart rate remains in atrial fibrillation, and tachycardia Head exam was generally normal. There was no scleral icterus or corneal arcus. Mucous membranes were moist. Neck was supple and without jugular venous distension, thyromegaly, or carotid bruits. Carotids were easily palpable bilaterally. There was no adenopathy. Lungs sounds are diminished bilaterally along with some crackles in the lung bases Heart sounds are irregular, tachycardic consistent with atrial fibrillation with rapid ventricular response Abdominal exam revealed normal bowel sounds. The abdomen was soft, non-tender, and without masses, organomegaly, or appreciable enlargement of the abdominal aorta. Examination of the extremities revealed easily palpable radial, femoral and pedal pulses. There was no cyanosis, clubbing or edema. Examination of the skin revealed no evidence of significant rashes, suspicious appearing nevi or other concerning lesions. Neurologically, the patient is awake and alert and the patient does not have any focal neurological deficit. Cranial nerves are essentially intact. Results - Laboratory Findings CBC and BMP: 06/03/22 05:35 06/03/22 00:03 Abnormal lab findings: Abnormal Labs 06/01/22 06/01/22 06/01/22 10:26 10:26 10:26 WBC RBC 6.23 H Hgb 18.3 H Hct 55.3 H Plt Count Immature Gran # Neutrophils # 8.5 H Monocytes # Eosinophils # Sodium 132 L Carbon Dioxide BUN 27 H Creatinine 1.32 H Est GFR (CKD-EPI)AfAm Est GFR (CKD-EPI)NonAf BUN/Creatinine Ratio Glucose 200 H POC Glucose (mg/dL) Plasma Lactic Acid Warren Total Bilirubin 1.5 H C-Reactive Protein Total Protein Albumin Albumin/Globulin Ratio Procalcitonin SARS-CoV-2 (PCR) Detected A 06/01/22 06/01/22 06/01/22 10:26 13:26 17:29 WBC RBC Hgb Hct Plt Count Immature Gran # Neutrophils # Monocytes # Eosinophils # Sodium Carbon Dioxide BUN Creatinine Est GFR (CKD-EPI)AfAm Est GFR (CKD-EPI)NonAf BUN/Creatinine Ratio Glucose POC Glucose (mg/dL) Plasma Lactic Acid Warren 4.2 H* 3.6 H* 3.3 H* Total Bilirubin C-Reactive Protein Total Protein Albumin Albumin/Globulin Ratio Procalcitonin SARS-CoV-2 (PCR) 06/01/22 06/02/22 06/02/22 20:26 05:16 05:16 WBC 14.12 H RBC 5.72 H Hgb Hct Plt Count Immature Gran # 0.07 H Neutrophils # 11.98 H Monocytes # Eosinophils # 0 L Sodium Carbon Dioxide BUN Creatinine Est GFR (CKD-EPI)AfAm Est GFR (CKD-EPI)NonAf BUN/Creatinine Ratio Glucose POC Glucose (mg/dL) Plasma Lactic Acid Warren 2.6 H* Total Bilirubin C-Reactive Protein Total Protein Albumin Albumin/Globulin Ratio Procalcitonin 0.14 H SARS-CoV-2 (PCR) 06/02/22 06/03/22 06/03/22 05:16 00:44 01:03 WBC RBC Hgb Hct Plt Count Immature Gran # Neutrophils # Monocytes # Eosinophils # Sodium 133 L Carbon Dioxide 18.4 L BUN 44.2 H Creatinine 1.6 H Est GFR (CKD-EPI)AfAm 52.7 L Est GFR (CKD-EPI)NonAf 45.5 L BUN/Creatinine Ratio 27.63 H Glucose 158 H POC Glucose (mg/dL) 159 H 138 H Plasma Lactic Acid Warren Total Bilirubin C-Reactive Protein 3.50 H Total Protein 5.8 L Albumin 3.1 L Albumin/Globulin Ratio 1.15 L Procalcitonin SARS-CoV-2 (PCR) 06/03/22 05:35 WBC 27.2 H RBC Hgb Hct Plt Count 113 L Immature Gran # Neutrophils # 23.8 H Monocytes # 1.6 H Eosinophils # Sodium Carbon Dioxide BUN Creatinine Est GFR (CKD-EPI)AfAm Est GFR (CKD-EPI)NonAf BUN/Creatinine Ratio Glucose POC Glucose (mg/dL) Plasma Lactic Acid Warren Total Bilirubin C-Reactive Protein Total Protein Albumin Albumin/Globulin Ratio Procalcitonin SARS-CoV-2 (PCR) - Diagnostic Findings Chest x-ray: image reviewed Assessment and Plan Plan: Acute Covid 19 infection. The patient has limited infiltration of the lung bases bilaterally. Possibility of a Covid 19 pneumonia cannot be completely ruled out. The patient has received 2 shots of vaccination. He was receiving Molnupiravir on outpatient basis. Currently, he is on a combination of Decadron and Remdesivir Acute hypoxic respiratory failure, currently on 15 L of oxygen by nasal cannula Acute atrial fibrillation with rapid ventricular response, currently on amiodarone drip. The patient received a bolus of 150 and currently is being loaded per protocol currently at 0.5 mg/m Hypotension, responded to fluids, on no pressors Acute kidney injury, creatinine from yesterday was at 1.6, awaiting labs from today Coronary artery disease with previous MS and coronary stenting History of lupus ordered insertion Mild lactic acidosis, improved Mild elevation of prothrombin calcitonin level at 0.14 Acute leukocytosis with a white cell count of 27 Hyperlipidemia Hypertension Previous history of CVA, recovered without any residual deficits Plan Increase IV fluids to 75 mL an hour Titrate FiO2 to maintain a saturation above 90% currently is on 15 L Continue the Decadron and Remdesivir Recheck the pro calcitonin level Recheck LDH and CRP and d-dimer is Obtain Doppler of the lower extremities Put the patient empirically antibiotic coverage with IV Rocephin 1 g every 24 hours and Zithromax 500 mg by mouth daily should there be any superinfection with bacterial pneumonia Management of atrial fibrillation per cardiology. Echocardiogram is in order Continue amiodarone Start the patient on Lopressor 25 mg by mouth 3 times a day Hold the hydrochlorothiazide for now Continue the aspirin and Plavix Modified the Lovenox dose to 1 mg/kg every 12 hours Continue multivitamins regarding his Covid 19 infection We'll continue to follow
--- NOTE | 2022-06-03 07:50 | XR ---
EXAMINATION TYPE: XR chest 1V DATE OF EXAM: 06/03/2022 COMPARISON: 06/02/2022 HISTORY: 62-year-old male ICU admission, shortness of breath TECHNIQUE: Single frontal view of the chest is obtained. FINDINGS: Relative upper lung lucencies just hyperinflation. Some mild patchy bibasilar opacities pe rsist. Loop recorder device over the left side of the chest. Advanced degenerative change left should er. Heart borderline in size. IMPRESSION: Borderline heart size and COPD. There is similar mild patchy bibasilar atelectasis versu s infiltrates.
--- NOTE | 2022-06-03 07:58 | US ---
EXAMINATION TYPE: US venous doppler duplex LE BI DATE OF EXAM: 06/03/2022 7:46 AM COMPARISON: NONE CLINICAL HISTORY: 62-year-old male edema, rule out DVT. covid sob SIDE PERFORMED: Bilateral TECHNIQUE: The lower extremity deep venous system is examined utilizing real time linear array sonog néstor with graded compression, doppler sonography and color-flow sonography. FINDINGS: VESSELS IMAGED: Common Femoral Vein Deep Femoral Vein Greater Saphenous Vein * Femoral Vein Popliteal Vein Small Saphenous Vein * Proximal Calf Veins (* superficial vessels) Right Leg: Negative for DVT Left Leg: Negative for DVT IMPRESSION: No evidence for DVT within the bilateral lower extremities imaged from the groin to the upper calves.
[2022-06-03 08:13] LABS: C Reactive Protein 3.1 mg/dL (<1.0); Calcium 7.8 mg/dL (8.4-10.2); Potassium 4.3 mmol/L (3.5-5.1)
[2022-06-03] MEDS ORDERED: ENOXAPARIN 100 MG/ML SYRINGE SQ ONE ×2 (09:00→21:00)
[2022-06-03] MEDS ORDERED: ENOXAPARIN 40 MG/0.4 ML SYRINGE SQ SCH (09:00)
[2022-06-03] MEDS: NOREPINEPHRINE 4 MG in SODIUM CHLORIDE 0.9% 250 ML IV SCH (09:22)
[2022-06-03] MEDS: ENOXAPARIN 40 MG/0.4 ML SYRINGE SQ SCH ×2 (09:40→21:11)
[2022-06-03] MEDS: ASCORBIC ACID 500 MG TAB PO SCH (09:41)
[2022-06-03] MEDS: METOPROLOL TARTRATE 25 MG TAB PO SCH ×3 (09:41→22:41)
[2022-06-03] MEDS: MULTIVITAMINS, THERA 1 EACH TAB PO SCH (09:41)
[2022-06-03] MEDS: ZINC SULFATE 220 MG CAP PO SCH (09:41)
[2022-06-03] MEDS: CHOLECALCIFEROL 25 MCG (1000 IU) TABLET PO SCH (09:41)
--- NOTE | 2022-06-03 09:41 | P.CRDCN ---
History of Present Illness Consult date: 06/03/22 Consult reason: atrial fibrillation History of present illness: The patient is a 62-year-old male with past medical history of coronary artery disease, hypertension, and CVA, who presented to the emergency room for generalized weakness and feeling unwell. The patient was found to be COVID-19 positive and therefore was admitted to the hospital. During his hospital admission he developed A. fib with RVR, therefore cardiology was consulted for management. Initially he was placed on Cardizem drip, but became hypotensive requiring Levophed. He was subsequently started on amiodarone drip. He is on Lovenox for anticoagulation. He continues to have heart rates in the 130s to 150s. Blood pressure is marginal. DIAGNOSTICS: Initial EKG showed sinus rhythm with right bundle branch block and left posterior fascicular block Follow-up EKG showed A. fib with RVR Vital signs: Blood pressure 104/77, heart rate 140, respiratory rate 24, SpO2 97% on 10 L high flow nasal cannula Lab data: WBC 27.2, hemoglobin 16.1, hematocrit 40.8, platelet 113, sodium 132, potassium 4.3, BUN 60, creatinine 1.31, CRP 3.1, AST 21, ALT 16, magnesium 2.2, plasma lactic acid 2.0, pro calcitonin 0.14, troponin 0.02 PAST MEDICAL HISTORY: Coronary artery disease, CVA, and former smoker PHYSICAL EXAMINATION: This is a 68-year-old ill appearing male with mild respiratory distress at the time of my examination. FINAL ASSESSMENT AND PLAN: Acute COVID-19 infection A. fib with RVR Acute kidney injury History of hypertension History of CVA, on Plavix PLAN: Start low-dose beta blockers and maximize as tolerated Increase amiodarone back to 1 mg daily for rate control, however this is a temporary strategy and will not be continued long-term. Continue supportive treatment for COVID-19 Continue Lovenox Further recommendations to be based upon clinical course I am dictating on behalf of Dr Luis Mahna's history/physical and assessment/plan. Past Medical History Past Medical History: Coronary Artery Disease (CAD), CVA/TIA History of Any Multi-Drug Resistant Organisms: None Reported Past Surgical History: Heart Catheterization With Stent Date of Last Stent Placement:: 2021 Smoking Status: Former smoker Past Alcohol Use History: None Reported Past Drug Use History: None Reported Medications and Allergies Home Medications Medication Instructions Recorded Confirmed Type Aspirin EC [Ecotrin Low Dose] 81 mg PO DAILY 06/01/22 06/01/22 History Atorvastatin [Lipitor] 40 mg PO HS 06/01/22 06/01/22 History Clopidogrel [Plavix] 75 mg PO HS 06/01/22 06/01/22 History Metoprolol Tartrate [Lopressor] 12.5 mg PO HS 06/01/22 06/01/22 History Molnupiravir [Lagevrio (Eua)] 800 mg PO BID 5 Days #40 cap 06/01/22 Rx Multivitamins, Thera [Multivitamin 1 tab PO DAILY 06/01/22 06/01/22 History (formulary)] Multivitamins, Thera [Multivitamin 1 tab PO HS 06/01/22 06/01/22 History (formulary)] Naproxen Sodium [Aleve] 440 mg PO DAILY PRN 06/01/22 06/01/22 History hydroCHLOROthiazide 12.5 mg PO BID PRN 06/01/22 06/01/22 History lisinopriL 40 mg PO HS 06/01/22 06/01/22 History Allergies Allergy/AdvReac Type Severity Reaction Status Date / Time Penicillins Allergy Rash/Hives Verified 06/01/22 13:59 Physical Exam Vitals: Vital Signs Temp Pulse Pulse Pulse Resp BP BP 06/03/22 08:34 06/03/22 07:00 140 H 24 104/77 06/03/22 06:45 142 H 24 82/54 06/03/22 06:30 144 H 20 105/80 06/03/22 06:15 147 H 24 92/77 06/03/22 06:00 147 H 26 H 91/75 06/03/22 05:45 142 H 25 H 81/69 06/03/22 05:30 142 H 17 102/76 06/03/22 05:15 141 H 20 100/84 06/03/22 05:00 135 H 20 94/66 06/03/22 04:45 140 H 18 81/67 06/03/22 04:30 131 H 17 89/59 06/03/22 04:15 142 H 22 88/58 06/03/22 04:00 134 H 17 96/78 06/03/22 03:45 144 H 21 87/75 06/03/22 03:30 144 H 11 L 98/72 06/03/22 03:15 140 H 22 109/74 06/03/22 03:00 144 H 25 H 99/73 06/03/22 02:45 137 H 24 88/73 06/03/22 02:30 135 H 10 L 81/66 06/03/22 02:15 138 H 20 86/74 06/03/22 02:00 131 H 14 86/68 06/03/22 01:45 134 H 22 90/79 06/03/22 01:30 130 H 13 84/68 06/03/22 01:15 97.7 F 131 H 8 L 101/87 06/03/22 00:46 127 H 68/20 06/03/22 00:39 126 H 19 78/29 06/02/22 23:31 97.4 F L 138 H 18 85/59 06/02/22 23:15 136 H 91/55 06/02/22 23:00 143 H 99/58 06/02/22 22:40 141 H 87/63 06/02/22 22:15 144 H 101/49 06/02/22 22:00 97.5 F L 152 H 20 90/66 06/02/22 21:43 136 H 112/84 06/02/22 21:11 156 H 36 H 06/02/22 20:57 97.5 F L 46 L 36 H 82/60 06/02/22 15:00 97.7 F 69 22 109/78 06/02/22 14:00 108 H 22 Pulse Ox 06/03/22 08:34 91 L 06/03/22 07:00 97 06/03/22 06:45 96 06/03/22 06:30 98 06/03/22 06:15 98 06/03/22 06:00 98 06/03/22 05:45 98 06/03/22 05:30 95 06/03/22 05:15 96 06/03/22 05:00 96 06/03/22 04:45 98 06/03/22 04:30 97 06/03/22 04:15 99 06/03/22 04:00 98 06/03/22 03:45 90 L 06/03/22 03:30 91 L 06/03/22 03:15 90 L 06/03/22 03:00 88 L 06/03/22 02:45 95 06/03/22 02:30 94 L 06/03/22 02:15 93 L 06/03/22 02:00 95 06/03/22 01:45 95 06/03/22 01:30 06/03/22 01:15 96 06/03/22 00:46 06/03/22 00:39 94 L 06/02/22 23:31 96 06/02/22 23:15 06/02/22 23:00 06/02/22 22:40 06/02/22 22:15 06/02/22 22:00 98 06/02/22 21:43 06/02/22 21:11 06/02/22 20:57 95 06/02/22 15:00 95 06/02/22 14:00 Intake and Output 06/02/22 06/03/22 06/03/22 22:59 06:59 14:59 Intake Total 1010 110 248.058 Output Total 600 100 230 Balance 410 10 18.058 Intake: IV 10 110 150 Invasive Line 1 10 10 Sodium Chloride 0.9% 1, 100 150 000 ml @ 75 mls/hr IV . [id number] [facility] Rx#:[id number] Intake, IV Titration 1000 98.058 Amount Amiodarone 450 mg In 98.058 Dextrose 5% in Water 250 ml @ 1 MG/MIN 33.333 mls/ hr IV .Q7H30M [facility] Rx#: [id number] Sodium Chloride 0.9% 1, 1000 000 ml @ 75 mls/hr IV . [id number] [facility] Rx#:[id number] Output: Urine 600 100 230 Other: Voiding Method Urinal Urinal # Bowel Movements 1 1 Results 06/03/22 05:35 06/03/22 05:35 Cardiac Enzymes 06/02/22 06/03/22 Range/Units 05:16 05:35 AST 21 (14-35) U/L Lactate Dehydrogenase 520 (313-618) U/L CBC 06/03/22 Range/Units 05:35 WBC 27.2 H (3.8-10.6) k/uL RBC 5.45 (4.30-5.90) m/uL Hgb 16.1 (13.0-17.5) gm/dL Hct 48.8 (39.0-53.0) % Plt Count 113 L (150-450) k/uL Comprehensive Metabolic Panel 06/02/22 06/03/22 06/03/22 Range/Units 05:16 00:03 05:35 Sodium 133 L 132 L (135-145) mmol/L Potassium 4.7 4.6 4.3 (3.5-5.5) mmol/L Chloride 99 106 (96-109) mmol/L Carbon Dioxide 18.4 L 18 L (20.0-27.5) mmol/L BUN 44.2 H 60 H (9.0-27.0) mg/dL Creatinine 1.6 H 1.31 H (0.6-1.5) mg/dL Glucose 158 H 146 H (70-110) mg/dL Calcium 8.7 7.8 L (8.7-10.3) mg/dL AST 21 (14-35) U/L ALT 16 (10-49) U/L Alkaline Phosphatase 73 (41-126) U/L Total Protein 5.8 L (6.2-8.2) g/dL Albumin 3.1 L (3.8-4.9) g/dL Current Medications Generic Name Dose Route Start Last Admin Trade Name Godwinq PRN Reason Stop Dose Admin Acetaminophen 650 mg 06/02/22 15:46 06/02/22 17:32 Acetaminophen Tab 325 Mg Tab PO 650 mg Q6HR PRN Administration Fever and/ or Pain Ascorbic Acid 500 mg 06/01/22 15:00 06/02/22 08:14 Ascorbic Acid 500 Mg Tab PO 500 mg DAILY [facility] Administration Aspirin 81 mg 06/02/22 09:00 06/02/22 08:14 Aspirin 81 Mg PO 81 mg DAILY [facility] Administration Atorvastatin Calcium 40 mg 06/01/22 21:00 06/02/22 21:19 Atorvastatin 40 Mg Tab PO 40 mg HS [facility] Administration Cholecalciferol 50 mcg 06/01/22 15:00 06/02/22 08:14 Cholecalciferol 25 Mcg (1000 Iu) Tablet PO 50 mcg DAILY [facility] Administration Clopidogrel Bisulfate 75 mg 06/01/22 21:00 06/02/22 21:19 Clopidogrel 75 Mg Tab PO 75 mg HS [facility] Administration Dexamethasone Sodium Phosphate 6 mg 06/01/22 18:45 06/02/22 08:14 Dexamethasone Sod Phosphate 10 Mg/Ml 1 Ml Vial IV 6 mg DAILY [facility] Administration Enoxaparin Sodium 100 mg 06/03/22 09:00 Enoxaparin 40 Mg/0.4 Ml Syringe SQ BID [facility] Famotidine 10 mg 06/02/22 22:30 06/02/22 23:09 Famotidine 20 Mg/2 Ml Vial IV 10 mg Q12HR [facility] Administration Sodium Chloride 1,000 mls @ 75 mls/hr 06/01/22 13:15 06/02/22 15:33 Saline 0.9% IV 20 mls/hr .[id number] [facility] Administration Remdesivir 100 mg/ Sodium 250 mls @ 250 mls/hr 06/03/22 14:00 Chloride IVPB 06/06/22 14:59 DAILY@1400 [facility] Amiodarone HCl 450 mg/ 250 mls @ 33.333 mls/hr 06/03/22 06:30 06/03/22 08:50 Dextrose/Water IV 06/03/22 16:43 1 mg/min .Q7H30M [facility] 33.333 mls/hr Titration Protocol 1 MG/MIN Norepinephrine Bitartrate 4 mg 254 mls @ 11.665 mls/hr 06/03/22 01:00 06/03/22 09:22 / Sodium Chloride IV Not Given .[id number] [facility] Protocol 0.03 MCG/KG/MIN Azithromycin 500 mg/ Sodium 250 mls @ 250 mls/hr 06/03/22 09:00 Chloride IVPB 06/05/22 09:59 DAILY [facility] Protocol Ceftriaxone Sodium 1 gm/ 50 mls @ 100 mls/hr 06/03/22 09:00 Sodium Chloride IVPB Q24HR [facility] Protocol Lisinopril 40 mg 06/01/22 21:00 06/02/22 21:06 Lisinopril 20 Mg Tab PO Not Given HS [facility] Metoprolol Tartrate 25 mg 06/03/22 09:00 Metoprolol Tartrate 25 Mg Tab PO TID [facility] Multivitamins 1 each 06/02/22 09:00 06/02/22 08:14 Multivitamins, Thera 1 Each Tab PO 1 each DAILY [facility] Administration Naloxone HCl 0.2 mg 06/01/22 13:02 Naloxone 0.4 Mg/Ml 1 Ml Vial IV Q2M PRN Opioid Reversal Ondansetron HCl 4 mg 06/02/22 15:46 Ondansetron 4 Mg/2 Ml Vial IVP Q6HR PRN Nausea And Vomiting Zinc Sulfate 220 mg 06/01/22 15:00 06/02/22 08:14 Zinc Sulfate 220 Mg Cap PO 220 mg DAILY [facility] Administration Intake and Output 06/02/22 06/03/22 06/03/22 22:59 06:59 14:59 Intake Total 1010 110 248.058 Output Total 600 100 230 Balance 410 10 18.058 Intake: IV 10 110 150 Invasive Line 1 10 10 Sodium Chloride 0.9% 1, 100 150 000 ml @ 75 mls/hr IV . [id number] [facility] Rx#:[id number] Intake, IV Titration 1000 98.058 Amount Amiodarone 450 mg In 98.058 Dextrose 5% in Water 250 ml @ 1 MG/MIN 33.333 mls/ hr IV .Q7H30M [facility] Rx#: [id number] Sodium Chloride 0.9% 1, 1000 000 ml @ 75 mls/hr IV . [id number] [facility] Rx#:[id number] Output: Urine 600 100 230 Other: Voiding Method Urinal Urinal # Bowel Movements 1 1 06/03/22 05:35 06/03/22 05:35
[2022-06-03] MEDS: ASPIRIN 81 MG PO SCH (09:42)
[2022-06-03] MEDS: DEXAMETHASONE SOD PHOSPHATE 10 MG/ML 1 ML VIAL IV SCH (09:42)
[2022-06-03] MEDS: FAMOTIDINE 20 MG/2 ML VIAL IV SCH ×2 (09:42→21:08)
[2022-06-03] MEDS: AZITHROMYCIN 500 MG in SODIUM CHLORIDE 0.9% 250 ML IVPB SCH (09:59)
--- NOTE | 2022-06-03 12:55 | CA ---
Transthoracic Echo Report Name: Elgin Bernardo Age: 62 Gender: M : 1960 Exam Date: 06/03/2022 09:20 Exam Location: [place] [facility] Ht (in): 70 Wt (lb): 225 Ordering Physician: Mehran Blanca DO ([email or web address]) Attending/Referring Phys: Ultrasonic Hand Solderer Michelle Avery RDCS Procedure CPT: Indications: nos afib Cardiac Hx: Technical Quality: Technically difficult study Contrast 1: Lumason Total Dose (mL): 2 Contrast 2: Total Dose (mL): MEASUREMENTS (Male / Female) Normal Values 2D ECHO LV Diastolic Diameter PLAX 3.5 cm 4.2 - 5.9 / 3.9 - 5.3 cm LV Systolic Diameter PLAX 2.6 cm IVS Diastolic Thickness 1.8 cm 0.6 - 1.0 / 0.6 - 0.9 cm LVPW Diastolic Thickness 1.9 cm 0.6 - 1.0 / 0.6 - 0.9 cm LV Relative Wall Thickness 1.1 FINDINGS Left Ventricle Severely increased septal wall thickness. Left ventricular ejection fraction is estimated at 45-50 %. Right Ventricle Right ventricle not well visualized. Right Atrium Right atrium not well visualized. Left Atrium Mild left atrial dilatation. Mitral Valve Mitral valve thickened. Mild mitral annular calcification. Mild mitral regurgitation. Aortic Valve Thickened aortic valve without stenosis. Tricuspid Valve Tricuspid valve not well visualized. Pulmonic Valve Pulmonic valve not well visualized. Pericardium No pericardial effusion. Aorta Normal size aortic root and proximal ascending aorta. CONCLUSIONS Severely increased left ventricular wall thickness Left ventricular ejection fraction 45-50% Mild mitral regurgitation No pericardial effusion Previewed by: Dr. Mehran Blanca DO (Electronically Signed) Final Date: 03 June 2022 12:54
[2022-06-03] MEDS: SODIUM CHLORIDE 0.9% 1,000 ML IV SCH (13:41)
--- NOTE | 2022-06-03 15:08 | P.PN ---
Subjective Progress Note Date: 06/03/22 Principal diagnosis: Covid 19 Pneumonia Patient is a 62-year-old male with a past medical history significant for coronary disease CVA TIA former smoker presenting to the ER this morning for evaluation of generalized weakness not feeling well symptom has been going on f or the last few days, patient has been diagnosed with covid 19 pneumonia. Patient did went into A. 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 On today's evaluation that is 06/03/2022, the patient remains to be afebrile, the patient denies any chest pain cough is decreased intensity, breathing slightly comfortably no nausea no vomiting no abdominal pain or diarrhea Objective - Vital Signs Vital signs: Vital Signs Temp 97.6 F 06/03/22 08:00 Pulse 147 H 06/03/22 10:30 Resp 20 06/03/22 10:30 BP 87/67 06/03/22 10:30 Pulse Ox 97 06/03/22 10:15 FiO2 Intake & Output 06/02/22 06/03/22 06/03/22 18:59 06:59 18:59 Intake Total 1120 258.058 Output Total 600 100 230 Balance -600 1020 28.058 Intake: IV 120 160 Invasive Line 1 20 Sodium Chloride 0.9% 1, 100 160 000 ml @ 75 mls/hr IV . [id number] [facility] Rx#:[id number] Intake, IV Titration 1000 98.058 Amount Amiodarone 450 mg In 98.058 Dextrose 5% in Water 250 ml @ 1 MG/MIN 33.333 mls/ hr IV .Q7H30M [facility] Rx#: [id number] Sodium Chloride 0.9% 1, 1000 000 ml @ 75 mls/hr IV . [id number] [facility] Rx#:[id number] Output: Urine 600 100 230 Other: Voiding Method Bedside Commode Urinal Urinal Urinal # Voids 1 0 # Bowel Movements 1 1 - Exam GENERAL DESCRIPTION: Middle-aged male lying in bed in no distress RESPIRATORY SYSTEM: Unlabored breathing , decreased intensity of breath sounds HEART: S1 S2 regular rate and rhythm , ABDOMEN: Soft , no tenderness EXTREMITIES: No edema feet - Labs CBC & Chem 7: 06/03/22 05:35 06/03/22 05:35 Labs: Abnormal Lab Results - Last 24 Hours (Table) 06/03/22 06/03/22 06/03/22 Range/Units 00:44 01:03 05:35 WBC (3.8-10.6) k/uL Plt Count (150-450) k/uL Neutrophils # (1.3-7.7) k/uL Monocytes # (0-1.0) k/uL Sodium 132 L (137-145) mmol/L Carbon Dioxide 18 L (22-30) mmol/L BUN 60 H (9-20) mg/dL Creatinine 1.31 H (0.66-1.25) mg/dL Glucose 146 H (74-99) mg/dL POC Glucose (mg/dL) 159 H 138 H (70-110) mg/dL Calcium 7.8 L (8.4-10.2) mg/dL C-Reactive Protein 3.1 H (<1.0) mg/dL 06/03/22 Range/Units 05:35 WBC 27.2 H (3.8-10.6) k/uL Plt Count 113 L (150-450) k/uL Neutrophils # 23.8 H (1.3-7.7) k/uL Monocytes # 1.6 H (0-1.0) k/uL Sodium (137-145) mmol/L Carbon Dioxide (22-30) mmol/L BUN (9-20) mg/dL Creatinine (0.66-1.25) mg/dL Glucose (74-99) mg/dL POC Glucose (mg/dL) (70-110) mg/dL Calcium (8.4-10.2) mg/dL C-Reactive Protein (<1.0) mg/dL Assessment and Plan (1) Coronavirus infection Current Visit: Yes Status: Acute Code(s): B34.2 - CORONAVIRUS INFECTION, UNSPECIFIED SNOMED Code(s): 662016725 Plan: 1patient presented to hospital with generalized weakness which is likely multifactorial in this patient with a likely component of dehydration with elevated BUN/creatinine and a component of COVID-19 pneumonia, however the patient is not running any fever and chest x-ray repeated 06/02/2022 is showing bibasilar infiltrate, patient did have a completion of A. fib with RVR and wor sening respiratory status requiring transfer to the ICU on 06/03/2022 2patient to continue with the Lovenox and ascorbic acid and dexamethasone along with Remdisivir day #2 and monitor clinical course closely Time with Patient: Less than 30
[2022-06-03] MEDS: REMDESIVIR 100 MG in SODIUM CHLORIDE 0.9% 250 ML IVPB SCH (15:55)
[2022-06-03] MEDS: ATORVASTATIN 40 MG TAB PO SCH (21:08)
[2022-06-03] MEDS: CLOPIDOGREL 75 MG TAB PO SCH (21:08)
--- NOTE | 2022-06-03 22:49 | P.PN ---
Subjective 62-year-old male with a past medical history significant for coronary disease CVA TIA former smoker presenting to the ER this morning for evaluation of generalized weakness not feeling well symptom has been going on for the last few days and apparently got worse overnight for the patient presented to hospital patient mention he did have no strength and has been feeling weak all over no energy patient did have some nausea but no vomiting no abdominal pain did have some diarrhea patient also complaining of shortness of breath on minim al exertion even at rest he did have a cough mild to moderate intensity mostly dry in nature with the symptoms the patient has been evaluated by ER physician on arrival to the ER the patient was afebrile and no fever has been recorded subsequently patient did have elevated lactic acid his white count is normal BUN/creatinine mildly elevated liver enzymes are normal COVID test came back positive RSV influenza was negative patient did have a chest x-ray 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 patient to continue with the Lovenox and ascorbic acid and dexamethasone however we will add Remdisivir for possible worsening of his underlying covid 19 pneumonia - We will give one-time dose of Lasix 20 mg IV 1 06/03/2022 Patient today was in the ICU in the morning with worsening respiratory distress, he was on 15 L/m of oxygen, also blood pressure was on the low side with systolic in the 90s with creatinine went up to 1.6 and today went down to 1.3. Also patient developed A. fib and RVR which contributed also to his hypotension, eventually patient able with by cardiology and pulmonary/critical care team and he was placed on small doses of pressors of Levophed, also I was started on normal saline 75 mL/h we'll close monitoring of blood pressure in the ICU. Cardizem drip which was started already switched to amiodarone drip and also he is on therapeutic dose of Lovenox for his A. fib and RVR Patient also respiratory status started improving and in the evening his oxygen requirements down to 7 L/m while he continues on treatment for his Covid infection with IV Decadron and remdisivir, Other than that labs showing leukocytosis while he is on steroids, creatinine improving. CRP slightly lower while LDH is normal. Distal tachypneic. Ultrasound of the neck is negative for DVT Echocardiogram showing ejection fraction of 45-50% with severe LVH Chest x-ray showing bibasilar infiltrates. Potential stone and is only mildly elevated at 0.13 however patient was placed on Zithromax 3 days. Review of systems CONSTITUTIONAL: No fever, no malaise, no fatigue. HEENT: No recent visual problems or hearing problems. Denied any sore throat. CARDIOVASCULAR: No orthopnea, PND, no palpitations, no syncope. GASTROINTESTINAL: No diarrhea, no nausea, no vomiting, no abdominal pain. N ormoactive bowel sounds. Active Medications Generic Name Dose Route Start Last Admin Trade Name Freq PRN Reason Stop Dose Admin Acetaminophen 650 mg 06/02/22 15:46 06/02/22 17:32 Acetaminophen Tab 325 Mg Tab PO 650 mg Q6HR PRN Administration Fever and/ or Pain Ascorbic Acid 500 mg 06/01/22 15:00 06/03/22 09:41 Ascorbic Acid 500 Mg Tab PO 500 mg DAILY [facility] Administration Aspirin 81 mg 06/02/22 09:00 06/03/22 09:42 Aspirin 81 Mg PO 81 mg DAILY [facility] Administration Atorvastatin Calcium 40 mg 06/01/22 21:00 06/03/22 21:08 Atorvastatin 40 Mg Tab PO 40 mg HS [facility] Administration Cholecalciferol 50 mcg 06/01/22 15:00 06/03/22 09:41 Cholecalciferol 25 Mcg (1000 Iu) Tablet PO 50 mcg DAILY [facility] Administration Clopidogrel Bisulfate 75 mg 06/01/22 21:00 06/03/22 21:08 Clopidogrel 75 Mg Tab PO 75 mg HS [facility] Administration Dexamethasone Sodium Phosphate 6 mg 06/01/22 18:45 06/03/22 09:42 Dexamethasone Sod Phosphate 10 Mg/Ml 1 Ml Vial IV 6 mg DAILY [facility] Administration Enoxaparin Sodium 100 mg 06/03/22 09:00 06/03/22 21:11 Enoxaparin 40 Mg/0.4 Ml Syringe SQ 100 mg BID [facility] Administration Famotidine 10 mg 06/02/22 22:30 06/03/22 21:08 Famotidine 20 Mg/2 Ml Vial IV 06/03/22 23:59 10 mg Q12HR [facility] Administration Famotidine 20 mg 06/04/22 09:00 Famotidine 20 Mg Tab PO BID [facility] Sodium Chloride 1,000 mls @ 75 mls/hr 06/01/22 13:15 06/03/22 13:41 Saline 0.9% IV 75 mls/hr .[id number] [facility] Administration Remdesivir 100 mg/ Sodium 250 mls @ 250 mls/hr 06/03/22 14:00 06/03/22 15:55 Chloride IVPB 06/06/22 14:59 250 mls/hr DAILY@1400 [facility] Administration Norepinephrine Bitartrate 4 mg 254 mls @ 11.665 mls/hr 06/03/22 01:00 06/03/22 09:22 / Sodium Chloride IV Not Given .[id number] [facility] Protocol 0.03 MCG/KG/MIN Azithromycin 500 mg/ Sodium 250 mls @ 250 mls/hr 06/03/22 09:00 06/03/22 09:59 Chloride IVPB 06/05/22 09:59 250 mls/hr DAILY [facility] Administration Protocol Ceftriaxone Sodium 1 gm/ 50 mls @ 100 mls/hr 06/03/22 09:00 06/03/22 09:43 Sodium Chloride IVPB 100 mls/hr Q24HR [facility] Administration Protocol Lisinopril 40 mg 06/01/22 21:00 06/02/22 21:06 Lisinopril 20 Mg Tab PO Not Given HS [facility] Metoprolol Tartrate 25 mg 06/03/22 09:00 06/03/22 22:41 Metoprolol Tartrate 25 Mg Tab PO 25 mg TID [facility] Administration Multivitamins 1 each 06/02/22 09:00 06/03/22 09:41 Multivitamins, Thera 1 Each Tab PO 1 each DAILY [facility] Administration Naloxone HCl 0.2 mg 06/01/22 13:02 Naloxone 0.4 Mg/Ml 1 Ml Vial IV Q2M PRN Opioid Reversal Ondansetron HCl 4 mg 06/02/22 15:46 Ondansetron 4 Mg/2 Ml Vial IVP Q6HR PRN Nausea And Vomiting Zinc Sulfate 220 mg 06/01/22 15:00 06/03/22 09:41 Zinc Sulfate 220 Mg Cap PO 220 mg DAILY [facility] Administration Objective - Vital Signs Vital signs: Vital Signs Temp 97.7 F 06/03/22 01:15 Pulse 140 H 06/03/22 07:00 Resp 24 06/03/22 07:00 BP 104/77 06/03/22 07:00 Pulse Ox 91 L 06/03/22 08:34 FiO2 Intake & Output 06/02/22 06/03/22 06/03/22 18:59 06:59 18:59 Intake Total 1120 173.058 Output Total 600 100 Balance -600 1020 173.058 Intake: IV 120 75 Invasive Line 1 20 Sodium Chloride 0.9% 1, 100 75 000 ml @ 75 mls/hr IV . [id number] [facility] Rx#:[id number] Intake, IV Titration 1000 98.058 Amount Amiodarone 450 mg In 98.058 Dextrose 5% in Water 250 ml @ 0.5 MG/MIN 16.667 mls/hr IV .Q15H [facility] Rx#: [id number] Sodium Chloride 0.9% 1, 1000 000 ml @ 75 mls/hr IV . [id number] [facility] Rx#:[id number] Output: Urine 600 100 Other: Voiding Method Bedside Commode Urinal Urinal # Voids 1 # Bowel Movements 1 1 - Exam GENERAL: The patient is alert and oriented x3, not in any acute distress. Well developed, well nourished. HEENT: Pupils are round and equally reacting to light. EOMI. No scleral icterus. No conjunctival pallor. Normocephalic, atraumatic. No pharyngeal erythema. No thyromegaly. CARDIOVASCULAR: S1 and S2 present. No murmurs, rubs, or gallops. -PULMONARY: Chest is clear to auscultation, no wheezing or bilateral scattered crepitation, mildly tachycardia ABDOMEN: Soft, nontender, nondistended, normoactive bowel sounds. No palpable organomegaly. MUSCULOSKELETAL: No joint swelling or deformity. EXTREMITIES: No cyanosis, clubbing, or pedal edema. NEUROLOGICAL: Gross neurological examination did not reveal any focal deficits. SKIN: No rashes. no petechiae. - Labs CBC & Chem 7: 06/03/22 05:35 06/03/22 05:35 Labs: Abnormal Lab Results - Last 24 Hours (Table) 06/02/22 06/02/22 06/03/22 Range/Units 05:16 05:16 00:44 WBC (3.8-10.6) k/uL Plt Count (150-450) k/uL Neutrophils # (1.3-7.7) k/uL Monocytes # (0-1.0) k/uL Sodium 133 L (135-145) mmol/L Carbon Dioxide 18.4 L (20.0-27.5) mmol/L BUN 44.2 H (9.0-27.0) mg/dL Creatinine 1.6 H (0.6-1.5) mg/dL Est GFR (CKD-EPI)AfAm 52.7 L (60.0-200.0) Est GFR (CKD-EPI)NonAf 45.5 L (60.0-200.0) BUN/Creatinine Ratio 27.63 H (12.00-20.00) Ratio Glucose 158 H (70-110) mg/dL POC Glucose (mg/dL) 159 H (70-110) mg/dL Calcium (8.4-10.2) mg/dL C-Reactive Protein 3.50 H (0.00-0.80) mg/dL Total Protein 5.8 L (6.2-8.2) g/dL Albumin 3.1 L (3.8-4.9) g/dL Albumin/Globulin Ratio 1.15 L (1.60-3.17) g/dL Procalcitonin 0.14 H (0.02-0.09) ng/mL 06/03/22 06/03/22 06/03/22 Range/Units 01:03 05:35 05:35 WBC 27.2 H (3.8-10.6) k/uL Plt Count 113 L (150-450) k/uL Neutrophils # 23.8 H (1.3-7.7) k/uL Monocytes # 1.6 H (0-1.0) k/uL Sodium 132 L (135-145) mmol/L Carbon Dioxide 18 L (20.0-27.5) mmol/L BUN 60 H (9.0-27.0) mg/dL Creatinine 1.31 H (0.6-1.5) mg/dL Est GFR (CKD-EPI)AfAm (60.0-200.0) Est GFR (CKD-EPI)NonAf (60.0-200.0) BUN/Creatinine Ratio (12.00-20.00) Ratio Glucose 146 H (70-110) mg/dL POC Glucose (mg/dL) 138 H (70-110) mg/dL Calcium 7.8 L (8.4-10.2) mg/dL C-Reactive Protein 3.1 H (0.00-0.80) mg/dL Total Protein (6.2-8.2) g/dL Albumin (3.8-4.9) g/dL Albumin/Globulin Ratio (1.60-3.17) g/dL Procalcitonin (0.02-0.09) ng/mL Assessment and Plan Assessment: Bilateral Covid pneumonia Acute hypoxic respiratory failure Increased inflammatory markers New-onset A. fib and RVR Acute kidney injury Leukocytosis Plan: Continue with dexamethasone Continue with vitamin C, vitamin D and zinc Continue with normal saline Continue with remdisivir Continue with amiodarone drip and peptic dose of Lovenox Continue with process as per critical care team, currently on small doses of levophed Continue with metoprolol Pulmonary consult Infectious disease consult Cardiology consult Labs and medication were reviewed.. Continue same treatment. Continue with symptomatic treatment. Resume home medication. Monitor lytes and vitals. DVT and GI prophylaxis. Further recommendations as per clinical course of the brigido ent DVT prophylaxis: Subcutaneous Lovenox GI Prophylaxis: Pepcid Prognosis is guarded
[2022-06-03] MEDS: AMIODARONE 360 MG in DEXTROSE 5% IN WATER 200 ML IV ONE ×2 (23:23)
[2022-06-04] MEDS: lisinopriL 20 MG TAB PO SCH (00:43)
[2022-06-04] MEDS: ONDANSETRON 4 MG/2 ML VIAL IVP PRN (02:29)
[2022-06-04] MEDS: NOREPINEPHRINE 4 MG in SODIUM CHLORIDE 0.9% 250 ML IV SCH (04:00)
[2022-06-04] MEDS: SODIUM CHLORIDE 0.9% 1,000 ML IV SCH (04:01)
[2022-06-04] MEDS: AMIODARONE 360 MG in DEXTROSE 5% IN WATER 200 ML IV ONE ×2 (05:37)
--- NOTE | 2022-06-04 06:46 | P.PN ---
Subjective Progress Note Date: 06/04/22 62-year-old male patient of the transferred to the intensive care unit yesterday evening for transfusion yesterday a chest fibrillation and rapid ventricular response. Noted the patient was hospitalized on 06/01/2022 for generalized weakness and Covid 19 infection. He is known to have coronary artery disease, previous CVA, and hyperlipidemia. Noted the patient came into the hospital and he was already receiving MOlnipiravir for Covid 19 infection on outpatient basis. He was initially on 2 L of oxygen by nasal cannula, admission. His chest x-ray showed some limited bibasilar pulmonary infiltration without any clear airspace disease of consolidation. And with the ongoing into fibrillation RVR, the patient became more hypoxic and currently is on 15 L high flow oxygen. In terms of his atrial fibrillation, the patient remains in A. fib RVR. Overnight, he was given Cardizem which essentially dropped his pressure to 80/60 and following that, the Cardizem drip was discontinued and the patient was given 1 L bolus, Lopressor bolus, and later on switched to amiodarone per protocol. He was given a bolus of amiodarone 150 mg and currently is on amiodarone at 0.5 g milligrams per minutes. He is also on anticoagulations those has been modified from a prophylactic dose to therapeutic dose of 100 mg subcu every 12 hours. No previous echocardiogram and an echocardiogram will be obtained today. In terms of his Covid 19 infection, the patient was started on Decadron and is currently receiving Decadron 6 mg IV every 24 hours. He is also on Remdesivir per protocol. The patient is also on IV fluids with normal saline at the rate of 20 mL an hour. Blood work from today shows WBC count of 27.2 with a hemoglobin of 16.1 and a platelet count of 113. Note that his pro calcitonin level at time of admission was 0.14. His CRP level was at 3.5. His lactic acid was at 2.6 and dropped down to 1.8 and currently is at 2.2. Awaiting follow-up labs from today. Noted the patient had an acute kidney injury and the creatinine was up to 1.6 from yesterday with a BUN of 44 and a serum bicarb of 18 and his sodium level of 133. His potassium level is at 4.6. Noted during this current admission, the patient received a total of 3 L of IV fluid boluses in the form of normal saline. On 06/04/2022, the patient is being seen in follow-up in intensive care unit. This morning, the patient is on 4 L of oxygen by nasal cannula and his overall respiratory status is improved considerably. Noted the patient got transferred to the intensive care unit and the patient was having a chest fibrillation with RVR. The patient was given various treatments and ultimately was switched amiodarone and he was loaded and maintained and he was receiving a dose of 1 mg/m. He did convert at around 3 PM yesterday afternoon into normal sinus rhythm. He is normotensive for now. No hypotension. Oxygen is improved and the patient is down to 4 L of O2 nasal cannula. Meanwhile, he is also Covid positive and he is receiving a combination of Decadron and Remdesivir care protocol. In terms of his echocardiogram, the patient was found to have a left ventricular ejection fraction of 45-50%. He had severe increase in septal wall thickness and mild mitral regurgitation. His pro calcitonin was elevated. His white cell count was also elevated at 27.2. Based on that, the patient was also given broad-spectrum antibiotic coverage and he was given a combination of Rocephin and Zithromax. In terms of his inflammatory markers, his LDH level was 520, CRP level was at 3.1. A repeat chest x-ray from today from today has been essentially stable with some limited infiltration of the lung bases. Meanwhile, the Doppler of the lower extremity was negative for DVT. The patient is currently on anticoagulants and he is receiving Lovenox 100 mg subcu injections every 12 hours. Objective - Vital Signs Vital signs: Vital Signs Temp 97.6 F 06/04/22 04:00 Pulse 61 06/04/22 06:00 Resp 21 06/04/22 06:00 BP 100/76 06/04/22 06:00 Pulse Ox 94 L 06/04/22 06:00 FiO2 Intake & Output 06/03/22 06/03/22 06/04/22 06:59 18:59 06:59 Intake Total 1120 351.137 8959 Output Total 100 610 725 Balance 1020 250.000 375 Weight 110.1 kg Intake: IV 120 610 900 Invasive Line 1 20 Sodium Chloride 0.9% 1, 100 610 900 000 ml @ 75 mls/hr IV . [id number] [facility] Rx#:[id number] Intake, IV Titration 1000 250.000 200 Amount Amiodarone 360 mg In 200 Dextrose 5% in Water 200 ml @ 1 MG/MIN 33.333 mls/ hr IV .Q6H ONE Rx#: [id number] Amiodarone 450 mg In 250.000 Dextrose 5% in Water 250 ml @ 1 MG/MIN 33.333 mls/ hr IV .[id number] [facility] Rx#: [id number] Sodium Chloride 0.9% 1, 1000 000 ml @ 75 mls/hr IV . [id number] [facility] Rx#:[id number] Output: Urine 100 610 725 Other: Voiding Method Urinal Urinal Urinal # Voids 0 0 # Bowel Movements 1 1 1 - Exam Gen. appearance the patient is a mild degree of respiratory distress currently on 4 L of oxygen by nasal cannula, slightly diaphoretic, not using accessory muscles of breathing, Head exam was generally normal. There was no scleral icterus or corneal arcus. Mucous membranes were moist. Neck was supple and without jugular venous distension, thyromegaly, or carotid bruits. Carotids were easily palpable bilaterally. There was no adenopathy. Lungs sounds are diminished bilaterally along with some crackles in the lung bases Heart Cardiac exam revealed the PMI to be normally situated and sized. The rhythm was regular and no extrasystoles were noted during several minutes of auscultation. The first and second heart sounds were normal and physiologic splitting of the second heart sound was noted. There were no murmurs, rubs, clicks, or gallops. Abdominal exam revealed normal bowel sounds. The abdomen was soft, non-tender, and without masses, organomegaly, or appreciable enlargement of the abdominal aorta. Examination of the extremities revealed easily palpable radial, femoral and pedal pulses. There was no cyanosis, clubbing or edema. Examination of the skin revealed no evidence of significant rashes, suspicious appearing nevi or other concerning lesions. Neurologically, the patient is awake and alert and the patient does not have any focal neurological deficit. Cranial nerves are essentially intact. - Labs CBC & Chem 7: 06/03/22 05:35 06/03/22 05:35 Labs: Abnormal Lab Results - Last 24 Hours (Table) 06/03/22 06/03/22 Range/Units 05:35 05:35 Sodium 132 L (137-145) mmol/L Carbon Dioxide 18 L (22-30) mmol/L BUN 60 H (9-20) mg/dL Creatinine 1.31 H (0.66-1.25) mg/dL Glucose 146 H (74-99) mg/dL Calcium 7.8 L (8.4-10.2) mg/dL C-Reactive Protein 3.1 H (<1.0) mg/dL Procalcitonin 0.13 H (0.02-0.09) ng/mL Assessment and Plan Plan: Acute Covid 19 infection. The patient has limited infiltration of the lung bases bilaterally. Possibility of a Covid 19 pneumonia cannot be completely ruled out. The patient has received 2 shots of vaccination. He was receiving Molnupiravir on outpatient basis. Currently, he is on a combination of Decadron and Remdesivir matter markers are low including LDH and CRP. The patient is maintained on the same treatment for now. Limited infiltration of the lung bases bilaterally Acute hypoxic respiratory failure, patient is improved and the patient has been weaned down to 4 L of O2 nasal cannula Acute atrial fibrillation with rapid ventricular response, converted into normal sinus rhythm Hypotension, responded to fluids, on no pressors, recovered Acute kidney injury, awaiting follow-up creatinine today Coronary artery disease with previous NE and coronary stenting History of lupus ordered insertion Mild lactic acidosis, improved Mild elevation of pro calcitonin level at 0.14 Acute leukocytosis with a white cell count of 27, awaiting follow-up white cell count Hyperlipidemia Hypertension Previous history of CVA, recovered without any residual deficits Plan IV fluids to KVO Discontinue the amiodarone drip and put the patient on oral amiodarone 400 mg twice a day Discontinue Lovenox injections switch this patient to Eliquis 5 mg by mouth twice a day Titrate FiO2 to maintain a saturation above 90% Continue the Decadron and Remdesivir Recheck the pro calcitonin level Recheck LDH and CRP and d-dimer is Obtain Doppler of the lower extremities Continue IV Rocephin 1 g every 24 hours and Zithromax 500 mg by mouth daily should there be any superinfection with bacterial pneumonia Lopressor 25 mg change the dose to twice a day Hold the hydrochlorothiazide for now Continue the aspirin and Plavix Continue multivitamins regarding his Covid 19 infection We'll continue to follow
[2022-06-04 07:03] LABS: Basophils # (A) 0.1 k/uL (0-0.2); Basophils % (A) 0 %; Eosinophils % (A) 0 %; HCT 42.1 % (39.0-53.0); HGB 14.3 gm/dL (13.0-17.5); Lymphocytes # (A) 1.3 k/uL (1.0-4.8); Lymphocytes % (A) 6 %; MCV 88.2 fL (80.0-100.0); Mean Platelet Volume 9.4; Monocytes # (A) 1.7 k/uL (0-1.0); Monocytes % (A) 7 %; Neutrophils # (A) 19.8 k/uL (1.3-7.7); Neutrophils % (A) 85 %; RBC 4.77 m/uL (4.30-5.90); RDW 13.8 % (11.5-15.5); WBC 23.3 k/uL (3.8-10.6)
[2022-06-04 07:08] LABS: Calcium 7.3 mg/dL (8.4-10.2); Potassium 4.2 mmol/L (3.5-5.1)
--- NOTE | 2022-06-04 07:08 | XR ---
EXAMINATION TYPE: XR chest 1V DATE OF EXAM: 06/04/2022 5:50 AM COMPARISON: Chest radiographs from 06/03/2022 TECHNIQUE: XR chest 1V Portable AP radiograph of the chest. CLINICAL INDICATION:Male, 62 years old with history of covid; FINDINGS: Lungs/Pleura: Hyperinflation with similar patchy bibasilar opacities. Pulmonary vascularity: Unremarkable. Heart/mediastinum: Cardiomediastinal silhouette is unremarkable. Musculoskeletal: No acute osseous pathology. Other findings: Loop recorder device over the left chest. IMPRESSION: Similar mild patchy bibasilar atelectasis versus infiltrate with COPD changes.
[2022-06-04] MEDS: APIXABAN 5 MG TAB PO SCH ×2 (08:39→21:01)
[2022-06-04] MEDS: ASCORBIC ACID 500 MG TAB PO SCH (08:39)
[2022-06-04] MEDS: CHOLECALCIFEROL 25 MCG (1000 IU) TABLET PO SCH (08:39)
[2022-06-04] MEDS: ASPIRIN 81 MG PO SCH (08:39)
[2022-06-04] MEDS: MULTIVITAMINS, THERA 1 EACH TAB PO SCH (08:40)
[2022-06-04] MEDS: AZITHROMYCIN 500 MG in SODIUM CHLORIDE 0.9% 250 ML IVPB SCH (08:40)
[2022-06-04] MEDS: FAMOTIDINE 20 MG TAB PO SCH ×2 (08:40→21:02)
[2022-06-04] MEDS: METOPROLOL TARTRATE 25 MG TAB PO SCH ×2 (08:40→21:02)
[2022-06-04] MEDS: DEXAMETHASONE SOD PHOSPHATE 10 MG/ML 1 ML VIAL IV SCH (08:40)
[2022-06-04] MEDS: AMIODARONE 200 MG TAB PO SCH ×2 (08:40→21:01)
[2022-06-04] MEDS: ZINC SULFATE 220 MG CAP PO SCH (08:40)
[2022-06-04 13:37] LABS: Platelet Count 97 k/uL (150-450)
[2022-06-04] MEDS: REMDESIVIR 100 MG in SODIUM CHLORIDE 0.9% 250 ML IVPB SCH (15:23)
--- NOTE | 2022-06-04 17:39 | P.PN ---
Subjective Progress Note Date: 06/04/22 Principal diagnosis: Acute Covid 19 infection Acute hypoxic respiratory failure Acute atrial fibrillation with rapid ventricular response Hypotension, responded to fluids Acute kidney injury 62-year-old male with a past medical history significant for coronary disease CVA TIA former smoker presenting to the ER this morning for evaluation of generalized weakness not feeling well symptom has been going on for the last few days and apparently got worse overnight for the patient presented to hospital patient mention he did have no strength and has been feeling weak all over no energy patient did have some nausea but no vomiting no abdominal pain did have some diarrhea patient also complaining of shortness of breath on minimal exertion even at rest he did have a cough mild to moderate intensity mostly dry in nature with the symptoms the patient has been evaluated by ER physician on arrival to the ER the patient was afebrile and no fever has been recorded subsequently patient did have elevated lactic acid his white count is normal BUN/creatinine mildly elevated liver enzymes are normal COVID test came back positive RSV influenza was negative patient did have a chest x-ray 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 patient to continue with the Lovenox and ascorbic acid and dexamethasone however we will add Remdisivir for possible worsening of his underlying covid 19 pneumonia - We will give one-time dose of Lasix 20 mg IV 1 24 hour interval change 06/04/2022 the patient is seen and evaluated in follow-up in intensive care unit. Currently on 4 L of oxygen by nasal cannula and his overall respiratory status i s improved. -- patient was transferred to the intensive care unit yesterday when he went into atrial fibrillation with RVR. The patient was given various treatments and ultimately was started on amiodarone and he was loaded and maintained and he was receiving a dose of 1 mg/m. patient converted to normal sinus rhythm yesterday afternoon. He is normotensive for now. Oxygen is improved and the patient is down to 4 L of O2 nasal cannula. Patient is Covid positive and he is receiving a combination of Decadron and Remdesivir care protocol. In terms of his echocardiogram, the patient was found to have a left ventricular ejection fraction of 45-50%. He had severe increase in septal wall thickness and mild mitral regurgitation. His pro calcitonin was elevated. His white cell count was also elevated at 27.2. Based on that, the patient was also given broad-spectrum antibiotic coverage and he was given a combination of Rocephin and Zithromax. In terms of his inflammatory markers, his LDH level was 520, CRP level was at 3.1. A repeat chest x-ray from today from today has been essentially stable with some limited infiltration of the lung bases. Meanwhile, the Doppler of the lower extremity was negative for DVT. The patient is currently on anticoagulants and he is receiving Lovenox 100 mg subcu injections every 12 hours. Objective - Vital Signs Vital signs: Vital Signs Temp 97.9 F 06/04/22 08:00 Pulse 63 06/04/22 11:00 Resp 20 06/04/22 11:00 BP 105/77 06/04/22 11:00 Pulse Ox 95 06/04/22 11:00 FiO2 Intake & Output 06/03/22 06/04/22 06/04/22 18:59 06:59 18:59 Intake Total 161.494 7221 340 Output Total 610 725 0 Balance 250.000 375 340 Weight 110.1 kg Intake: IV 610 900 340 Azithromycin 500 mg In 250 Sodium Chloride 0.9% 250 ml @ 250 mls/hr IVPB DAILY [facility] Rx#:[id number] Sodium Chloride 0.9% 1, 610 900 40 000 ml @ 5 mls/hr IV . Q24H [facility] Rx#:[id number] cefTRIAXone 1 gm In 50 Sodium Chloride 0.9% 50 ml @ 100 mls/hr IVPB Q24HR [facility] Rx#:[id number] Intake, IV Titration 250.000 200 Amount Amiodarone 360 mg In 200 Dextrose 5% in Water 200 ml @ 1 MG/MIN 33.333 mls/ hr IV .Q6H [facility] Rx#: [id number] Amiodarone 450 mg In 250.000 Dextrose 5% in Water 250 ml @ 1 MG/MIN 33.333 mls/ hr IV .Q7H30M [facility] Rx#: [id number] Output: Urine 610 725 0 Other: Voiding Method Urinal Urinal Urinal # Voids 0 0 0 # Bowel Movements 1 1 - Exam PHYSICAL EXAMINATION: GENERAL: The patient is alert and oriented x3, not in any acute distress. Well developed, well nourished. HEENT: Pupils are round and equally reacting to light. EOMI. No scleral icterus. No conjunctival pallor. Normocephalic, atraumatic. No pharyngeal erythema. No thyromegaly. CARDIOVASCULAR: S1 and S2 present. No murmurs, rubs, or gallops. PULMONARY: Chest is clear to auscultation, no wheezing or crackles. ABDOMEN: Soft, nontender, nondistended, normoactive bowel sounds. No palpable organomegaly. MUSCULOSKELETAL: No joint swelling or deformity. EXTREMITIES: No cyanosis, clubbing, or pedal edema. NEUROLOGICAL: Gross neurological examination did not reveal any focal deficits. SKIN: No rashes. - Labs CBC & Chem 7: 06/04/22 06:22 06/04/22 06:22 Labs: Abnormal Lab Results - Last 24 Hours (Table) 06/03/22 06/04/22 06/04/22 Range/Units 05:35 06:22 06:22 WBC 23.3 H (3.8-10.6) k/uL D-Dimer (<0.60) mg/L FEU Sodium 129 L (137-145) mmol/L Carbon Dioxide 21 L (22-30) mmol/L BUN 57 H (9-20) mg/dL Glucose 138 H (74-99) mg/dL Calcium 7.3 L (8.4-10.2) mg/dL Procalcitonin 0.13 H (0.02-0.09) ng/mL 06/04/22 Range/Units 06:22 WBC (3.8-10.6) k/uL D-Dimer 0.76 H (<0.60) mg/L FEU Sodium (137-145) mmol/L Carbon Dioxide (22-30) mmol/L BUN (9-20) mg/dL Glucose (74-99) mg/dL Calcium (8.4-10.2) mg/dL Procalcitonin (0.02-0.09) ng/mL Assessment and Plan Assessment: 1. Generalized weakness - Likely multifactorial; related to COVID-19 right ear infection and acute renal injury 2. COVID-19 infection; ID has been consulted and patient has been placed on COVID-19 vitamin cocktail along with subcu Lovenox; ID to recommend on need for antiviral therapy - We will monitor inflammatory markers periodically 3. Acute renal injury; cautious IV fluid hydration with normal saline; we will monitor strict MIRA's, daily weights, renal function and electrolytes; avoid nephrotoxins and hypotension 4. Lactic acidosis; likely related to acute renal injury and COVID-19 infection; continue with plan of care as indicated above and monitor lactic acid levels closely 5. Hyperbilirubinemia; possibly related to COVID-19 infection; we will monitor hepatic function panel and initiate further workup if remains elevated DVT prophylaxis; SCDs/subcu Lovenox CODE STATUS; full code
--- NOTE | 2022-06-04 18:31 | P.PN ---
Subjective Progress Note Date: 06/04/22 The patient is a 62-year-old male with past medical history of coronary artery disease, hypertension, and CVA, who presented to the emergency room for generalized weakness and feeling unwell. The patient was found to be COVID-19 positive and therefore was admitted to the hospital. During his hospital adm ission he developed A. fib with RVR, therefore cardiology was consulted for management. Initially he was placed on Cardizem drip, but became hypotensive requiring Levophed. He was subsequently started on amiodarone drip. He is on Lovenox for anticoagulation. DIAGNOSTICS: Initial EKG showed sinus rhythm with right bundle branch block and left posterior fascicular block Follow-up EKG showed A. fib with RVR 06/04/22: Patient cardioverted overnight. Beta aric was reduced and switched to oral m edications. PAST MEDICAL HISTORY: Coronary artery disease, CVA, and former smoker PHYSICAL EXAMINATION: This is a 68-year-old ill appearing male with mild respiratory distress at the time of my examination. FINAL ASSESSMENT AND PLAN: Acute COVID-19 infection A. fib with RVR Acute kidney injury History of hypertension History of CVA, on Plavix PLAN: Continue amiodarone however this is temporarily and should not be continued at discharge Continue supportive treatment for COVID-19 Continue Lovenox Further recommendations to be based upon clinical course I am dictating on behalf of Dr Luis Mahan's history/physical and assessment/plan. Objective - Vital Signs Vital signs: Vital Signs Temp 98.4 F 06/04/22 16:00 Pulse 88 06/04/22 18:00 Resp 15 06/04/22 18:00 BP 95/80 06/04/22 18:00 Pulse Ox 94 L 06/04/22 18:00 FiO2 Intake & Output 06/03/22 06/04/22 06/04/22 18:59 06:59 18:59 Intake Total 563.946 0927 610 Output Total 610 725 925 Balance 250.000 375 -315 Weight 110.1 kg Intake: IV 610 900 610 Azithromycin 500 mg In 250 Sodium Chloride 0.9% 250 ml @ 250 mls/hr IVPB DAILY [facility] Rx#:[id number] Remdesivir 100 mg In 250 Sodium Chloride 0.9% 250 ml @ 250 mls/hr IVPB DAILY@1400 [facility] Rx#: [id number] Sodium Chloride 0.9% 1, 610 900 60 000 ml @ 5 mls/hr IV . Q24H [facility] Rx#:[id number] cefTRIAXone 1 gm In 50 Sodium Chloride 0.9% 50 ml @ 100 mls/hr IVPB Q24HR [facility] Rx#:[id number] Intake, IV Titration 250.000 200 Amount Amiodarone 360 mg In 200 Dextrose 5% in Water 200 ml @ 1 MG/MIN 33.333 mls/ hr IV .Q6H [facility] Rx#: [id number] Amiodarone 450 mg In 250.000 Dextrose 5% in Water 250 ml @ 1 MG/MIN 33.333 mls/ hr IV .Q7H30M [facility] Rx#: [id number] Output: Urine 610 725 925 Other: Voiding Method Urinal Urinal Urinal # Voids 0 0 0 # Bowel Movements 1 1 - Labs CBC & Chem 7: 06/04/22 06:22 06/04/22 06:22 Labs: Abnormal Lab Results - Last 24 Hours (Table) 06/03/22 06/04/22 06/04/22 Range/Units 05:35 06:22 06:22 WBC 23.3 H (3.8-10.6) k/uL Plt Count 97 L (150-450) k/uL Neutrophils # 19.8 H (1.3-7.7) k/uL Monocytes # 1.7 H (0-1.0) k/uL D-Dimer (<0.60) mg/L FEU Sodium 129 L (137-145) mmol/L Carbon Dioxide 21 L (22-30) mmol/L BUN 57 H (9-20) mg/dL Glucose 138 H (74-99) mg/dL Calcium 7.3 L (8.4-10.2) mg/dL Procalcitonin 0.13 H (0.02-0.09) ng/mL 06/04/22 Range/Units 06:22 WBC (3.8-10.6) k/uL Plt Count (150-450) k/uL Neutrophils # (1.3-7.7) k/uL Monocytes # (0-1.0) k/uL D-Dimer 0.76 H (<0.60) mg/L FEU Sodium (137-145) mmol/L Carbon Dioxide (22-30) mmol/L BUN (9-20) mg/dL Glucose (74-99) mg/dL Calcium (8.4-10.2) mg/dL Procalcitonin (0.02-0.09) ng/mL
--- NOTE | 2022-06-04 20:45 | P.PN ---
Subjective Progress Note Date: 06/04/22 Principal diagnosis: Covid 19 Pneumonia Patient is a 62-year-old male with a past medical history significant for coronary disease CVA TIA former smoker presenting to the ER this morning for evaluation of generalized weakness not feeling well symptom has been going on f or the last few days, patient has been diagnosed with covid 19 pneumonia. Patient did went into A. 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 On today's evaluation that is 06/04/2022, the patient continues to be afebrile, the patient denies any chest pain , the patient cough has decreased intensity and not bringing up any sputum, breathing slightly comfortably and down to 4 L nasal cannula, no nausea no vomiting no abdominal pain or diarrhea Objective - Vital Signs Vital signs: Vital Signs Temp 97.9 F 06/04/22 08:00 Pulse 64 06/04/22 12:00 Resp 20 06/04/22 12:00 BP 105/75 06/04/22 12:00 Pulse Ox 97 06/04/22 12:00 FiO2 Intake & Output 06/03/22 06/04/22 06/04/22 18:59 06:59 18:59 Intake Total 590.601 1845 340 Output Total 610 725 225 Balance 250.000 375 115 Weight 110.1 kg Intake: IV 610 900 340 Azithromycin 500 mg In 250 Sodium Chloride 0.9% 250 ml @ 250 mls/hr IVPB DAILY [facility] Rx#:[id number] Sodium Chloride 0.9% 1, 610 900 40 000 ml @ 5 mls/hr IV . Q24H [facility] Rx#:[id number] cefTRIAXone 1 gm In 50 Sodium Chloride 0.9% 50 ml @ 100 mls/hr IVPB Q24HR [facility] Rx#:[id number] Intake, IV Titration 250.000 200 Amount Amiodarone 360 mg In 200 Dextrose 5% in Water 200 ml @ 1 MG/MIN 33.333 mls/ hr IV .Q6H [facility] Rx#: [id number] Amiodarone 450 mg In 250.000 Dextrose 5% in Water 250 ml @ 1 MG/MIN 33.333 mls/ hr IV .Q7H30M [facility] Rx#: [id number] Output: Urine 610 725 225 Other: Voiding Method Urinal Urinal Urinal # Voids 0 0 0 # Bowel Movements 1 1 - Exam GENERAL DESCRIPTION: Middle-aged male lying in bed in no distress RESPIRATORY SYSTEM: Unlabored breathing , decreased intensity of breath sounds HEART: S1 S2 regular rate and rhythm , ABDOMEN: Soft , no tenderness EXTREMITIES: No edema feet - Labs CBC & Chem 7: 06/04/22 06:22 06/04/22 06:22 Labs: Abnormal Lab Results - Last 24 Hours (Table) 06/03/22 06/04/22 06/04/22 Range/Units 05:35 06:22 06:22 WBC 23.3 H (3.8-10.6) k/uL D-Dimer (<0.60) mg/L FEU Sodium 129 L (137-145) mmol/L Carbon Dioxide 21 L (22-30) mmol/L BUN 57 H (9-20) mg/dL Glucose 138 H (74-99) mg/dL Calcium 7.3 L (8.4-10.2) mg/dL Procalcitonin 0.13 H (0.02-0.09) ng/mL 06/04/22 Range/Units 06:22 WBC (3.8-10.6) k/uL D-Dimer 0.76 H (<0.60) mg/L FEU Sodium (137-145) mmol/L Carbon Dioxide (22-30) mmol/L BUN (9-20) mg/dL Glucose (74-99) mg/dL Calcium (8.4-10.2) mg/dL Procalcitonin (0.02-0.09) ng/mL Assessment and Plan (1) Coronavirus infection Current Visit: Yes Status: Acute Code(s): B34.2 - CORONAVIRUS INFECTION, UNSPECIFIED SNOMED Code(s): 102148787 Plan: 1patient presented to hospital with generalized weakness which is likely multifactorial in this patient with a likely component of dehydration with elevated BUN/creatinine and a component of COVID-19 pneumonia, however the patient is not running any fever and chest x-ray repeated 06/02/2022 is showing bibasilar infiltrate, patient did have a completion of A. fib with RVR and worsening respiratory status requiring transfer to the ICU on 06/03/2022 2patient did have minimal clinical improvement and will continue with the Lovenox and ascorbic acid and dexamethasone along with Remdisivir day #3 and monitor clinical course closely Time with Patient: Less than 30
[2022-06-04] MEDS: CLOPIDOGREL 75 MG TAB PO SCH (21:01)
[2022-06-04] MEDS: ATORVASTATIN 40 MG TAB PO SCH (21:02)
[2022-06-05 01:41] LABS: Basophils # (A) 0.1 k/uL (0-0.2); Basophils % (A) 0 %; Eosinophils % (A) 0 %; HCT 33.1 % (39.0-53.0); Lymphocytes # (A) 1.6 k/uL (1.0-4.8); Lymphocytes % (A) 7 %; MCH 30.5 pg (25.0-35.0); MCHC 33.9 g/dL (31.0-37.0); MCV 89.8 fL (80.0-100.0); Mean Platelet Volume 9.4; Monocytes # (A) 1.9 k/uL (0-1.0); Monocytes % (A) 9 %; Neutrophils # (A) 18.4 k/uL (1.3-7.7); Neutrophils % (A) 82 %; Platelet Count 140 k/uL (150-450); RBC 3.69 m/uL (4.30-5.90); RDW 13.7 % (11.5-15.5); WBC 22.4 k/uL (3.8-10.6)
[2022-06-05 01:44] LABS: HGB 11.2 gm/dL (13.0-17.5)
[2022-06-05] MEDS: ONDANSETRON 4 MG/2 ML VIAL IVP PRN (04:59)
--- NOTE | 2022-06-05 06:29 | XR ---
EXAMINATION TYPE: XR chest 1V DATE OF EXAM: 06/05/2022 CLINICAL HISTORY: Difficulty breathing progress study. TECHNIQUE: Single AP portable semiupright view of the chest is obtained. COMPARISON: Chest x-ray from one day earlier and older studies. FINDINGS: There are chronic parenchymal changes without suspicious focal airspace opacity, pleural e ffusion, or pneumothorax seen bilaterally. Cardiac silhouette size is stable and within normal limits . Overlying loop recorder is redemonstrated. Advanced degenerative change left glenohumeral joint red emonstrated. IMPRESSION: Chronic changes without new acute pulmonary process. No significant change from one day scottie cobos
--- NOTE | 2022-06-05 07:26 | P.PN ---
Subjective Progress Note Date: 06/05/22 62-year-old male patient of the transferred to the intensive care unit yesterday evening for transfusion yesterday a chest fibrillation and rapid ventricular response. Noted the patient was hospitalized on 06/01/2022 for generalized weakness and Covid 19 infection. He is known to have coronary artery disease, previous CVA, and hyperlipidemia. Noted the patient came into the hospital and he was already receiving MOlnipiravir for Covid 19 infection on outpatient basis. He was initially on 2 L of oxygen by nasal cannula, admission. His chest x-ray showed some limited bibasilar pulmonary infiltration without any clear airspace disease of consolidation. And with the ongoing into fibrillation RVR, the patient became more hypoxic and currently is on 15 L high flow oxygen. In terms of his atrial fibrillation, the patient remains in A. fib RVR. Overnight, he was given Cardizem which essentially dropped his pressure to 80/60 and following that, the Cardizem drip was discontinued and the patient was given 1 L bolus, Lopressor bolus, and later on switched to amiodarone per protocol. He was given a bolus of amiodarone 150 mg and currently is on amiodarone at 0.5 g milligrams per minutes. He is also on anticoagulations those has been modified from a prophylactic dose to therapeutic dose of 100 mg subcu every 12 hours. No previous echocardiogram and an echocardiogram will be obtained today. In terms of his Covid 19 infection, the patient was started on Decadron and is currently receiving Decadron 6 mg IV every 24 hours. He is also on Remdesivir per protocol. The patient is also on IV fluids with normal saline at the rate of 20 mL an hour. Blood work from today shows WBC count of 27.2 with a hemoglobin of 16.1 and a platelet count of 113. Note that his pro calcitonin level at time of admission was 0.14. His CRP level was at 3.5. His lactic acid was at 2.6 and dropped down to 1.8 and currently is at 2.2. Awaiting follow-up labs from today. Noted the patient had an acute kidney injury and the creatinine was up to 1.6 from yesterday with a BUN of 44 and a serum bicarb of 18 and his sodium level of 133. His potassium level is at 4.6. Noted during this current admission, the patient received a total of 3 L of IV fluid boluses in the form of normal saline. On 06/04/2022, the patient is being seen in follow-up in intensive care unit. This morning, the patient is on 4 L of oxygen by nasal cannula and his overall respiratory status is improved considerably. Noted the patient got transferred to the intensive care unit and the patient was having a chest fibrillation with RVR. The patient was given various treatments and ultimately was switched amiodarone and he was loaded and maintained and he was receiving a dose of 1 mg/m. He did convert at around 3 PM yesterday afternoon into normal sinus rhythm. He is normotensive for now. No hypotension. Oxygen is improved and the patient is down to 4 L of O2 nasal cannula. Meanwhile, he is also Covid positive and he is receiving a combination of Decadron and Remdesivir care protocol. In terms of his echocardiogram, the patient was found to have a left ventricular ejection fraction of 45-50%. He had severe increase in septal wall thickness and mild mitral regurgitation. His pro calcitonin was elevated. His white cell count was also elevated at 27.2. Based on that, the patient was also given broad-spectrum antibiotic coverage and he was given a combination of Rocephin and Zithromax. In terms of his inflammatory markers, his LDH level was 520, CRP level was at 3.1. A repeat chest x-ray from today from today has been essentially stable with some limited infiltration of the lung bases. Meanwhile, the Doppler of the lower extremity was negative for DVT. The patient is currently on anticoagulants and he is receiving Lovenox 100 mg subcu injections every 12 hours. Is 06/05/2022, the patient is on 2 L of oxygen by nasal cannula. His cardiac rhythm remained sinus. History receiving treatment for Covid 19 infection. As his condition was improving, yesterday at around 9 PM, patient started having episodes of GI bleed. The patient had a large melanotic stools and he had several episodes of GI bleed throughout the night probably a total of 7. At that point, general surgery was consulted. Anticoagulations was placed on hold. Note that the patient received a combination of Lovenox initially and later on Eliquis regarding his atrial fibrillation. No known history of any peptic ulcer disease. Hemoglobin from this morning is down to 11.2 from a baseline of 16.4 at time of admission. Rest of the electrolytes are still pending for now. The patient was started on IV Protonix. Anticoagulations was placed on hold. Despite this GI bleed, the patient remains hemodynamically stable. No significant tachycardia. No abdominal pain. No nausea. No hematemesis. Repeat chest x-ray was done today and it shows no acute process. No significant change from the earlier chest x-ray. Some limited infiltration left lung base otherwise, the chest x-ray is essentially clear. For now, the patient is nothing by mouth. Objective - Vital Signs Vital signs: Vital Signs Temp 98.1 F 06/05/22 04:00 Pulse 89 06/05/22 07:00 Resp 17 06/05/22 07:00 BP 113/76 06/05/22 07:00 Pulse Ox 96 06/05/22 07:00 FiO2 Intake & Output 06/04/22 06/05/22 06/05/22 18:59 06:59 18:59 Intake Total 610 120 Output Total 925 800 Balance -315 -680 Weight 106.7 kg Intake: IV 610 120 Azithromycin 500 mg In 250 Sodium Chloride 0.9% 250 ml @ 250 mls/hr IVPB DAILY [facility] Rx#:[id number] Remdesivir 100 mg In 250 Sodium Chloride 0.9% 250 ml @ 250 mls/hr IVPB DAILY@1400 [facility] Rx#: [id number] Sodium Chloride 0.9% 1, 60 120 000 ml @ 5 mls/hr IV . Q24H [facility] Rx#:[id number] cefTRIAXone 1 gm In 50 Sodium Chloride 0.9% 50 ml @ 100 mls/hr IVPB Q24HR [facility] Rx#:[id number] Output: Urine 925 800 Other: Voiding Method Urinal Urinal # Voids 0 0 # Bowel Movements 1 - Exam Gen. appearance the patient is a mild degree of respiratory distress currently on 2 L of oxygen by nasal cannula, slightly diaphoretic, not using accessory muscles of breathing, Head exam was generally normal. There was no scleral icterus or corneal arcus. Mucous membranes were moist. Neck was supple and without jugular venous distension, thyromegaly, or carotid bruits. Carotids were easily palpable bilaterally. There was no adenopathy. Lungs sounds are diminished bilaterally along with some crackles in the lung bases Heart Cardiac exam revealed the PMI to be normally situated and sized. The rhythm was regular and no extrasystoles were noted during several minutes of auscultation. The first and second heart sounds were normal and physiologic splitting of the second heart sound was noted. There were no murmurs, rubs, clicks, or gallops. Abdominal exam revealed normal bowel sounds. The abdomen was soft, non-tender, and without masses, organomegaly, or appreciable enlargement of the abdominal aorta. Examination of the extremities revealed easily palpable radial, femoral and pedal pulses. There was no cyanosis, clubbing or edema. Examination of the skin revealed no evidence of significant rashes, suspicious appearing nevi or other concerning lesions. Neurologically, the patient is awake and alert and the patient does not have any focal neurological deficit. Cranial nerves are essentially intact. - Labs CBC & Chem 7: 06/05/22 00:54 06/04/22 06:22 Labs: Abnormal Lab Results - Last 24 Hours (Table) 06/04/22 06/04/22 06/05/22 Range/Units 06:22 06:22 00:54 WBC 23.3 H 22.4 H (3.8-10.6) k/uL RBC 3.69 L (4.30-5.90) m/uL Hgb 11.2 L D (13.0-17.5) gm/dL Hct 33.1 L (39.0-53.0) % Plt Count 97 L 140 L (150-450) k/uL Neutrophils # 19.8 H 18.4 H (1.3-7.7) k/uL Monocytes # 1.7 H 1.9 H (0-1.0) k/uL D-Dimer 0.76 H (<0.60) mg/L FEU Assessment and Plan Plan: Acute Covid 19 infection. The patient has limited infiltration of the lung bases bilaterally. Possibility of a Covid 19 pneumonia cannot be completely ru led out. The patient has received 2 shots of vaccination. He was receiving Molnupiravir on outpatient basis. Currently, he is on a combination of Decadron and Remdesivir matter markers are low including LDH and CRP. The chest x-ray stable and oxygen support and the patient is currently on 2 L of O2 nasal cannula Acute hypoxic respiratory failure, improving and the patient is currently on 2 L of oxygen nasal cannula Acute atrial fibrillation with rapid ventricular response, converted into normal sinus rhythm Hypotension, responded to fluids, on no pressors, recovered Acute upper GI bleed Blood loss anemia and hemoglobin is down to 11.2 Acute kidney injury, awaiting follow-up creatinine today Coronary artery disease with previous SD and coronary stenting History of lupus ordered insertion Mild lactic acidosis, improved Mild elevation of pro calcitonin level at 0.14 Acute leukocytosis with a white cell count of 27, awaiting follow-up white cell count Hyperlipidemia Hypertension Previous history of CVA, recovered without any residual deficits Plan IV fluids at 75 mL an hour of normal saline Keep the patient nothing by mouth Start the patient on Protonix DiscontinueEliquis Apply compression devices lower extremities Consults Gen. surgery and the patient is likely going to undergo an EGD today regarding his upper GI bleed Continue amiodarone Continue metoprolol Cardiac rhythm is sinus Recheck the pro calcitonin level is 0.13 Recheck LDH and CRP and d-dimer is Obtain Doppler of the lower extremities was negative Continue IV Rocephin 1 g every 24 hours and Zithromax 500 mg by mouth daily should there be any superinfection with bacterial pneumonia Hold the aspirin and Plavix Continue multivitamins regarding his Covid 19 infection We'll continue to follow
[2022-06-05] MEDS: lisinopriL 20 MG TAB PO SCH ×2 (07:34→22:33)
[2022-06-05 07:51] LABS: Basophils # (A) 0.1 k/uL (0-0.2); Basophils % (A) 0 %; Eosinophils % (A) 0 %; HCT 27.2 % (39.0-53.0); Lymphocytes # (A) 2.2 k/uL (1.0-4.8); Lymphocytes % (A) 11 %; MCH 31.1 pg (25.0-35.0); MCHC 34.7 g/dL (31.0-37.0); MCV 89.7 fL (80.0-100.0); Mean Platelet Volume 9.8; Monocytes # (A) 1.9 k/uL (0-1.0); Monocytes % (A) 9 %; Neutrophils # (A) 15.8 k/uL (1.3-7.7); Neutrophils % (A) 77 %; Platelet Count 126 k/uL (150-450); RBC 3.04 m/uL (4.30-5.90); RDW 13.7 % (11.5-15.5); WBC 20.5 k/uL (3.8-10.6)
[2022-06-05 07:53] LABS: HGB 9.5 gm/dL (13.0-17.5)
[2022-06-05 08:08] LABS: African American GFR (CKD) >90 (>60 ml/min/1.73 sqM); Anion Gap 5 mmol/L; Blood Urea Nitrogen 70 mg/dL (9-20); Calcium 7.2 mg/dL (8.4-10.2); Carbon Dioxide 20 mmol/L (22-30); Chloride 105 mmol/L (98-107); Glucose 156 mg/dL (74-99); Non-African American GFR(CKD) >90 (>60 ml/min/1.73 sqM); Potassium 4.5 mmol/L (3.5-5.1); Sodium 130 mmol/L (137-145)
[2022-06-05] MEDS: NOREPINEPHRINE 4 MG in SODIUM CHLORIDE 0.9% 250 ML IV SCH ×2 (08:35→16:38)
[2022-06-05] MEDS: ZINC SULFATE 220 MG CAP PO SCH (08:36)
[2022-06-05] MEDS: ASCORBIC ACID 500 MG TAB PO SCH (08:36)
[2022-06-05] MEDS: ASPIRIN 81 MG PO SCH (08:36)
[2022-06-05] MEDS: MULTIVITAMINS, THERA 1 EACH TAB PO SCH (08:36)
[2022-06-05] MEDS: CHOLECALCIFEROL 25 MCG (1000 IU) TABLET PO SCH (08:36)
[2022-06-05] MEDS: SODIUM CHLORIDE 0.9% 1,000 ML IV SCH (08:37)
[2022-06-05] MEDS: AMIODARONE 200 MG TAB PO SCH ×2 (08:41→20:58)
[2022-06-05] MEDS: DEXAMETHASONE SOD PHOSPHATE 10 MG/ML 1 ML VIAL IV SCH (08:41)
[2022-06-05] MEDS: PANTOPRAZOLE 40 MG/10 ML VIAL IVP SCH (08:41)
[2022-06-05] MEDS: FAMOTIDINE 20 MG TAB PO SCH ×2 (08:42→20:58)
[2022-06-05] MEDS: METOPROLOL TARTRATE 25 MG TAB PO SCH ×2 (08:42→20:58)
[2022-06-05] MEDS: AZITHROMYCIN 500 MG in SODIUM CHLORIDE 0.9% 250 ML IVPB SCH (09:49)
[2022-06-05] MEDS ORDERED: Kcentra PER PHARMACY 1 EACH MISC MISCELLANE PRN (09:58)
[2022-06-05] MEDS ORDERED: HUMAN PROTHROMBIN COMPLX IV ONE (10:15)
[2022-06-05] MEDS ORDERED: HUMAN PROTHROMBIN COMPLX 500 UNIT/16 ML VIAL IV ONE (10:33)
[2022-06-05] MEDS ORDERED: LIDOCAINE 2% INJ 20 MG/ML (2 ML VIAL) ONE (11:14)
[2022-06-05] MEDS ORDERED: PROPOFOL 10 MG/ML 20 ML VIAL IV ONE (11:14)
[2022-06-05] MEDS: ACETAMINOPHEN TAB 325 MG TAB PO PRN (12:09)
--- NOTE | 2022-06-05 12:09 | P.GSCN ---
History of Present Illness Consult date: 06/05/22 Reason for Consult: GI bleed History of present illness: 62-year-old male admitted to the hospital for weakness and Covid 19 infection. Patient with history of known coronary artery disease and previous CVA. Maintained on Plavix at home. Apparently had atrial fibrillation with rapid ventricular response and was transferred to the ICU on 06/03. Overnight the patient developed maroon stools multiple. Hemoglobin dropped from 14-9.5 since yesterday morning. No history of previous bleeding episodes. Patient during this hospital stay on aspirin Plavix and eloquis. Last dose of eloquis at 9 PM last night. Denies abdominal pain. Review of Systems The patient denies any acute changes in vision or hearing, no dysphagia or odynophagia, no dysuria or hematuria, no headache, no runny nose, no unexplained weight loss Past Medical History Past Medical History: Coronary Artery Disease (CAD), CVA/TIA History of Any Multi-Drug Resistant Organisms: None Reported Past Surgical History: Heart Catheterization With Stent Date of Last Stent Placement:: 2021 Smoking Status: Former smoker Past Alcohol Use History: None Reported Past Drug Use History: None Reported Medications and Allergies Home Medications Medication Instructions Recorded Confirmed Type Aspirin EC [Ecotrin Low Dose] 81 mg PO DAILY 06/01/22 06/01/22 History Atorvastatin [Lipitor] 40 mg PO HS 06/01/22 06/01/22 History Clopidogrel [Plavix] 75 mg PO HS 06/01/22 06/01/22 History Metoprolol Tartrate [Lopressor] 12.5 mg PO HS 06/01/22 06/01/22 History Molnupiravir [Lagevrio (Eua)] 800 mg PO BID 5 Days #40 cap 06/01/22 Rx Multivitamins, Thera [Multivitamin 1 tab PO DAILY 06/01/22 06/01/22 History (formulary)] Multivitamins, Thera [Multivitamin 1 tab PO HS 06/01/22 06/01/22 History (formulary)] Naproxen Sodium [Aleve] 440 mg PO DAILY PRN 06/01/22 06/01/22 History hydroCHLOROthiazide 12.5 mg PO BID PRN 06/01/22 06/01/22 History lisinopriL 40 mg PO HS 06/01/22 06/01/22 History Allergies Allergy/AdvReac Type Severity Reaction Status Date / Time Penicillins Allergy Rash/Hives Verified 06/01/22 13:59 Surgical - Exam Vital Signs Temp Pulse Resp BP Pulse Ox 97.4 F L 102 H 22 105/75 97 06/01/22 10:19 06/01/22 10:19 06/01/22 10:19 06/01/22 10:19 06/01/22 10:19 Physical exam: General: Well-developed, well-nourished HEENT: Normocephalic, sclerae nonicteric Abdomen: Nontender, nondistended Extremities: No edema Neuro: Alert and oriented Results - Labs 06/05/22 07:24 06/05/22 07:24 Abnormal Lab Results - Last 24 Hours (Table) 06/04/22 06/05/22 06/05/22 Range/Units 06:22 00:54 07:24 WBC 22.4 H 20.5 H (3.8-10.6) k/uL RBC 3.69 L 3.04 L (4.30-5.90) m/uL Hgb 11.2 L D 9.5 L D (13.0-17.5) gm/dL Hct 33.1 L 27.2 L (39.0-53.0) % Plt Count 97 L 140 L 126 L (150-450) k/uL Neutrophils # 19.8 H 18.4 H 15.8 H (1.3-7.7) k/uL Monocytes # 1.7 H 1.9 H 1.9 H (0-1.0) k/uL Sodium (137-145) mmol/L Carbon Dioxide (22-30) mmol/L BUN (9-20) mg/dL Glucose (74-99) mg/dL Calcium (8.4-10.2) mg/dL 06/05/22 Range/Units 07:24 WBC (3.8-10.6) k/uL RBC (4.30-5.90) m/uL Hgb (13.0-17.5) gm/dL Hct (39.0-53.0) % Plt Count (150-450) k/uL Neutrophils # (1.3-7.7) k/uL Monocytes # (0-1.0) k/uL Sodium 130 L (137-145) mmol/L Carbon Dioxide 20 L (22-30) mmol/L BUN 70 H (9-20) mg/dL Glucose 156 H (74-99) mg/dL Calcium 7.2 L (8.4-10.2) mg/dL Diabetes panel 06/05/22 Range/Units 07:24 Sodium 130 L (137-145) mmol/L Potassium 4.5 (3.5-5.1) mmol/L Chloride 105 (98-107) mmol/L Carbon Dioxide 20 L (22-30) mmol/L BUN 70 H (9-20) mg/dL Creatinine 0.89 (0.66-1.25) mg/dL Glucose 156 H (74-99) mg/dL Calcium 7.2 L (8.4-10.2) mg/dL Calcium panel 06/05/22 Range/Units 07:24 Calcium 7.2 L (8.4-10.2) mg/dL Pituitary panel 06/05/22 Range/Units 07:24 Sodium 130 L (137-145) mmol/L Potassium 4.5 (3.5-5.1) mmol/L Chloride 105 (98-107) mmol/L Carbon Dioxide 20 L (22-30) mmol/L BUN 70 H (9-20) mg/dL Creatinine 0.89 (0.66-1.25) mg/dL Glucose 156 H (74-99) mg/dL Calcium 7.2 L (8.4-10.2) mg/dL Adrenal panel 06/05/22 Range/Units 07:24 Sodium 130 L (137-145) mmol/L Potassium 4.5 (3.5-5.1) mmol/L Chloride 105 (98-107) mmol/L Carbon Dioxide 20 L (22-30) mmol/L BUN 70 H (9-20) mg/dL Creatinine 0.89 (0.66-1.25) mg/dL Glucose 156 H (74-99) mg/dL Calcium 7.2 L (8.4-10.2) mg/dL Assessment and Plan (1) Acute GI bleeding Narrative/Plan: 62-year-old male with significant GI bleed. Patient on significant anticoagulation. Last dose of eloquis yesterday evening. Still with bleeding this morning. Will give dose of K-Centra at this time. Monitor hemoglobin closely. We'll proceed with EGD. Continue antiacid therapy. Current Visit: Yes Status: Acute Code(s): K92.2 - GASTROINTESTINAL HEMORRHAGE, UNSPECIFIED SNOMED Code(s): 33730440
--- NOTE | 2022-06-05 12:12 | P.PCN ---
Date of Procedure: 06/05/22 Procedure(s) Performed: Preoperative Dx: Upper GI bleeding Postoperative Dx: Duodenal ulcer with stigmata of bleeding, duodenitis, gastritis, small hiatal hernia Procedure: EGD with clip placement Anesthesia: Sedation Endoscopist: Dr. Moreno Specimens: None Endoscopic Procedure: The patient was kept in the ICU on his bed for the procedure. He was then placed in the left decubitus position. The Olympus gastroscope was inserted into the oropharynx and passed under direct visualization to the region of the third portion of the duodenum. From that point the scope was slowly withdrawn inspecting all surfaces carefully. The patient had duodenitis present with some blood within the duodenum. There was no blood in the stomach itself. The patient at the junction between the first and second portion of the duodenum had a small 8 mm adherent clot and as we suctioned that area bleeding was seen. This certainly seemed to be the source of recent heavy bleeding. No sizable additional ulcerations were noted. Using the clip photographer's assistant 2 separate clips were placed one on top of another over the bleeding site. No further bleeding was seen at that time. No injection of epinephrine was required. The pylorus was widely patent. The stomach was inspected including retroflexion. Mild gastritis was seen. No gastric ulcers were noted. The patient had a 1.5 cm sliding hiatal hernia. There was minimal inflammatory changes at the GE junction. No biopsies were taken. The remainder the esophagus appear normal. Recommendations: Keep nothing by mouth. Reversal agent for eloquis was provided. Continue aggressive antiacid therapy. Initially platelets were also ordered as a reversal for the Plavix but given the appearance after clip placement and history of stent placement will hold on platelets for now.
--- NOTE | 2022-06-05 13:17 | P.PN ---
Subjective Progress Note Date: 06/05/22 This is Booker Royal NP, I'm dictating on behalf of Dr. Mahan's H&P and A&P. Patient was interviewed and examined. Patient is a pleasant 62-year-old male who presented to the hospital with COVID- 19 and lactic acidosis, and was subsequently in A. fib with RVR. The patient did convert yesterday, and beta blockers were changed to oral. Patient currently remains on amiodarone. No major complaints today. GENERAL: Well-appearing, well-nourished and in no acute distress. NECK: Supple without JVD or thyromegaly. LUNGS: Breath sounds clear to auscultation bilaterally. Respiration equal and unlabored. No wheezes, rales or rhonchi. HEART: Regular rate and rhythm without murmurs, rubs or gallops. S1 and S2 heard. EXTREMITIES: Normal range of motion, no edema. No clubbing or cyanosis. Peripheral pulses intact and strong. VITALS: Temp 97.9, pulse 86, respirations 22, blood pressure 110/77, O2 saturation 99% on 2 L TELEMETRY: Normal sinus rhythm LABS: White count 20.5, hemoglobin 9.5, platelets 126, sodium 1:30, potassium 4.5, B1 70, creatinine 0.89, calcium 7.2 IMPRESSION: 1. Acute COVID-19 infection 2. A. fib with RVR 3. Acute kidney injury 4. History of hypertension 5. History of CVA, on Plavix PLAN: Continue current medications. Continue amiodarone until discharge, and then stop. No further recommendations from a cardiac standpoint. Thank you for allowing us to participate in the care of this patient. If further recommendations are needed, please do not hesitate to reconsult us. Objective - Vital Signs Vital signs: Vital Signs Temp 97.9 F 06/05/22 12:00 Pulse 86 06/05/22 12:00 Resp 22 06/05/22 12:00 BP 110/77 06/05/22 12:00 Pulse Ox 99 06/05/22 12:00 FiO2 Intake & Output 06/04/22 06/05/22 06/05/22 18:59 06:59 18:59 Intake Total 610 120 675 Output Total 925 800 600 Balance -315 -680 75 Weight 106.7 kg Intake: IV 610 120 675 Azithromycin 500 mg In 250 250 Sodium Chloride 0.9% 250 ml @ 250 mls/hr IVPB DAILY [facility] Rx#:[id number] Remdesivir 100 mg In 250 Sodium Chloride 0.9% 250 ml @ 250 mls/hr IVPB DAILY@1400 [facility] Rx#: [id number] Sodium Chloride 0.9% 1, 60 120 375 000 ml @ 75 mls/hr IV . [id number] [facility] Rx#:[id number] cefTRIAXone 1 gm In 50 50 Sodium Chloride 0.9% 50 ml @ 100 mls/hr IVPB Q24HR [facility] Rx#:[id number] Output: Urine 925 800 600 Other: Voiding Method Urinal Urinal Urinal # Voids 0 0 # Bowel Movements 1 1 - Labs CBC & Chem 7: 06/05/22 07:24 06/05/22 07:24 Labs: Abnormal Lab Results - Last 24 Hours (Table) 06/04/22 06/05/22 06/05/22 Range/Units 06:22 00:54 07:24 WBC 22.4 H 20.5 H (3.8-10.6) k/uL RBC 3.69 L 3.04 L (4.30-5.90) m/uL Hgb 11.2 L D 9.5 L D (13.0-17.5) gm/dL Hct 33.1 L 27.2 L (39.0-53.0) % Plt Count 97 L 140 L 126 L (150-450) k/uL Neutrophils # 19.8 H 18.4 H 15.8 H (1.3-7.7) k/uL Monocytes # 1.7 H 1.9 H 1.9 H (0-1.0) k/uL Sodium (137-145) mmol/L Carbon Dioxide (22-30) mmol/L BUN (9-20) mg/dL Glucose (74-99) mg/dL Calcium (8.4-10.2) mg/dL 06/05/22 Range/Units 07:24 WBC (3.8-10.6) k/uL RBC (4.30-5.90) m/uL Hgb (13.0-17.5) gm/dL Hct (39.0-53.0) % Plt Count (150-450) k/uL Neutrophils # (1.3-7.7) k/uL Monocytes # (0-1.0) k/uL Sodium 130 L (137-145) mmol/L Carbon Dioxide 20 L (22-30) mmol/L BUN 70 H (9-20) mg/dL Glucose 156 H (74-99) mg/dL Calcium 7.2 L (8.4-10.2) mg/dL
[2022-06-05] MEDS: REMDESIVIR 100 MG in SODIUM CHLORIDE 0.9% 250 ML IVPB SCH (14:23)
--- NOTE | 2022-06-05 18:42 | P.PN ---
Subjective Progress Note Date: 06/05/22 Principal diagnosis: Acute Covid 19 infection Acute hypoxic respiratory failure Acute atrial fibrillation with rapid ventricular response Hypotension, responded to fluids Acute kidney injury 62-year-old male with a past medical history significant for coronary disease CVA TIA former smoker presenting to the ER this morning for evaluation of generalized weakness not feeling well symptom has been going on for the last few days and apparently got worse overnight for the patient presented to hospital patient mention he did have no strength and has been feeling weak all over no energy patient did have some nausea but no vomiting no abdominal pain did have some diarrhea patient also complaining of shortness of breath on minimal exertion even at rest he did have a cough mild to moderate intensity mostly dry in nature with the symptoms the patient has been evaluated by ER physician on arrival to the ER the patient was afebrile and no fever has been recorded subsequently patient did have elevated lactic acid his white count is normal BUN/creatinine mildly elevated liver enzymes are normal COVID test came back positive RSV influenza was negative patient did have a chest x-ray 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 patient to continue with the Lovenox and ascorbic acid and dexamethasone however we will add Remdisivir for possible worsening of his underlying covid 19 pneumonia - We will give one-time dose of Lasix 20 mg IV 1 24 hour interval change 06/04/2022 the patient is seen and evaluated in follow-up in intensive care unit. Currently on 4 L of oxygen by nasal cannula and his overall respiratory status i s improved. -- patient was transferred to the intensive care unit yesterday when he went into atrial fibrillation with RVR. The patient was given various treatments and ultimately was started on amiodarone and he was loaded and maintained and he was receiving a dose of 1 mg/m. patient converted to normal sinus rhythm yesterday afternoon. He is normotensive for now. Oxygen is improved and the patient is down to 4 L of O2 nasal cannula. Patient is Covid positive and he is receiving a combination of Decadron and Remdesivir care protocol. In terms of his echocardiogram, the patient was found to have a left ventricular ejection fraction of 45-50%. He had severe increase in septal wall thickness and mild mitral regurgitation. His pro calcitonin was elevated. His white cell count was also elevated at 27.2. Based on that, the patient was also given broad-spectrum antibiotic coverage and he was given a combination of Rocephin and Zithromax. In terms of his inflammatory markers, his LDH level was 520, CRP level was at 3.1. A repeat chest x-ray from today from today has been essentially stable with some limited infiltration of the lung bases. Meanwhile, the Doppler of the lower extremity was negative for DVT. The patient is currently on anticoagulants and he is receiving Lovenox 100 mg subcu injections every 12 hours. 24 hour interval change 06/05/2022, - the patient is seen and evaluated in room at bedside, remains on 2 L of oxygen by nasal cannula. His cardiac rhythm remained sinus. History receiving treatment for Covid 19 infection. As his condition was improving, yesterday at around 9 PM, patient started having episodes of GI bleed. The patient had a large melanotic stools and he had several episodes of GI bleed throughout the night probably a total of 7. At that point, general surgery was consulted. Anticoagulations was placed on hold. Note that the patient received a combination of Lovenox initially and later on Eliquis regarding his atrial fibrillation. No known history of any peptic ulcer disease. Hemoglobin from this morning is down to 11.2 from a baseline of 16.4 at time of admission. Rest of the electrolytes are still pending for now. The patient was started on IV Protonix. Anticoagulations was placed on hold. Despite this GI bleed, the patient remains hemodynamically stable. No significant tachycardia. No abdominal pain. No nausea. No hematemesis. Repeat chest x-ray was done today and it shows no acute process. No significant change from the earlier chest x- ray. Some limited infiltration left lung base otherwise, the chest x-ray is essentially clear. Keep the patient nothing by mouth Start the patient on Protonix Discontinue Eliquis; we will monitor CBC closely Objective - Vital Signs Vital signs: Vital Signs Temp 97.9 F 06/05/22 08:00 Pulse 74 06/05/22 11:00 Resp 19 06/05/22 11:00 BP 107/70 06/05/22 11:00 Pulse Ox 92 L 06/05/22 11:00 FiO2 Intake & Output 06/04/22 06/05/22 06/05/22 18:59 06:59 18:59 Intake Total 610 120 675 Output Total 925 800 600 Balance -315 -680 75 Weight 106.7 kg Intake: IV 610 120 675 Azithromycin 500 mg In 250 250 Sodium Chloride 0.9% 250 ml @ 250 mls/hr IVPB DAILY [facility] Rx#:[id number] Remdesivir 100 mg In 250 Sodium Chloride 0.9% 250 ml @ 250 mls/hr IVPB DAILY@1400 [facility] Rx#: [id number] Sodium Chloride 0.9% 1, 60 120 375 000 ml @ 75 mls/hr IV . [id number] [facility] Rx#:[id number] cefTRIAXone 1 gm In 50 50 Sodium Chloride 0.9% 50 ml @ 100 mls/hr IVPB Q24HR [facility] Rx#:[id number] Output: Urine 925 800 600 Other: Voiding Method Urinal Urinal Urinal # Voids 0 0 # Bowel Movements 1 1 - Exam PHYSICAL EXAMINATION: GENERAL: The patient is alert and oriented x3, not in any acute distress. Well developed, well nourished. HEENT: Pupils are round and equally reacting to light. EOMI. No scleral icterus. No conjunctival pallor. Normocephalic, atraumatic. No pharyngeal erythema. No thyromegaly. CARDIOVASCULAR: S1 and S2 present. No murmurs, rubs, or gallops. PULMONARY: Chest is clear to auscultation, no wheezing or crackles. ABDOMEN: Soft, nontender, nondistended, normoactive bowel sounds. No palpable organomegaly. MUSCULOSKELETAL: No joint swelling or deformity. EXTREMITIES: No cyanosis, clubbing, or pedal edema. NEUROLOGICAL: Gross neurological examination did not reveal any focal deficits. SKIN: No rashes. - Labs CBC & Chem 7: 06/05/22 07:24 06/05/22 07:24 Labs: Abnormal Lab Results - Last 24 Hours (Table) 06/04/22 06/05/22 06/05/22 Range/Units 06:22 00:54 07:24 WBC 22.4 H 20.5 H (3.8-10.6) k/uL RBC 3.69 L 3.04 L (4.30-5.90) m/uL Hgb 11.2 L D 9.5 L D (13.0-17.5) gm/dL Hct 33.1 L 27.2 L (39.0-53.0) % Plt Count 97 L 140 L 126 L (150-450) k/uL Neutrophils # 19.8 H 18.4 H 15.8 H (1.3-7.7) k/uL Monocytes # 1.7 H 1.9 H 1.9 H (0-1.0) k/uL Sodium (137-145) mmol/L Carbon Dioxide (22-30) mmol/L BUN (9-20) mg/dL Glucose (74-99) mg/dL Calcium (8.4-10.2) mg/dL 06/05/22 Range/Units 07:24 WBC (3.8-10.6) k/uL RBC (4.30-5.90) m/uL Hgb (13.0-17.5) gm/dL Hct (39.0-53.0) % Plt Count (150-450) k/uL Neutrophils # (1.3-7.7) k/uL Monocytes # (0-1.0) k/uL Sodium 130 L (137-145) mmol/L Carbon Dioxide 20 L (22-30) mmol/L BUN 70 H (9-20) mg/dL Glucose 156 H (74-99) mg/dL Calcium 7.2 L (8.4-10.2) mg/dL Assessment and Plan Assessment: 1. Generalized weakness - Likely multifactorial; related to COVID-19 right ear infection and acute renal injury 2. COVID-19 infection; ID has been consulted and patient has been placed on COVID-19 vitamin cocktail along with subcu Lovenox; ID to recommend on need for antiviral therapy - We will monitor inflammatory markers periodically 3. Acute renal injury; cautious IV fluid hydration with normal saline; we will monitor strict MIRA's, daily weights, renal function and electrolytes; avoid nephrotoxins and hypotension 4. Lactic acidosis; likely related to acute renal injury and COVID-19 infectio n; continue with plan of care as indicated above and monitor lactic acid levels closely 5. Hyperbilirubinemia; possibly related to COVID-19 infection; we will monitor hepatic function panel and initiate further workup if remains elevated DVT prophylaxis; SCDs/subcu Lovenox CODE STATUS; full code
[2022-06-05] MEDS: ATORVASTATIN 40 MG TAB PO SCH (20:58)
--- NOTE | 2022-06-06 07:36 | P.PN ---
Subjective Progress Note Date: 06/06/22 62-year-old male patient of the transferred to the intensive care unit yesterday evening for transfusion yesterday a chest fibrillation and rapid ventricular response. Noted the patient was hospitalized on 06/01/2022 for generalized weakness and Covid 19 infection. He is known to have coronary artery disease, previous CVA, and hyperlipidemia. Noted the patient came into the hospital and he was already receiving MOlnipiravir for Covid 19 infection on outpatient basis. He was initially on 2 L of oxygen by nasal cannula, admission. His chest x-ray showed some limited bibasilar pulmonary infiltration without any clear airspace disease of consolidation. And with the ongoing into fibrillation RVR, the patient became more hypoxic and currently is on 15 L high flow oxygen. In terms of his atrial fibrillation, the patient remains in A. fib RVR. Overnight, he was given Cardizem which essentially dropped his pressure to 80/60 and following that, the Cardizem drip was discontinued and the patient was given 1 L bolus, Lopressor bolus, and later on switched to amiodarone per protocol. He was given a bolus of amiodarone 150 mg and currently is on amiodarone at 0.5 g milligrams per minutes. He is also on anticoagulations those has been modified from a prophylactic dose to therapeutic dose of 100 mg subcu every 12 hours. No previous echocardiogram and an echocardiogram will be obtained today. In terms of his Covid 19 infection, the patient was started on Decadron and is currently receiving Decadron 6 mg IV every 24 hours. He is also on Remdesivir per protocol. The patient is also on IV fluids with normal saline at the rate of 20 mL an hour. Blood work from today shows WBC count of 27.2 with a hemoglobin of 16.1 and a platelet count of 113. Note that his pro calcitonin level at time of admission was 0.14. His CRP level was at 3.5. His lactic acid was at 2.6 and dropped down to 1.8 and currently is at 2.2. Awaiting follow-up labs from today. Noted the patient had an acute kidney injury and the creatinine was up to 1.6 from yesterday with a BUN of 44 and a serum bicarb of 18 and his sodium level of 133. His potassium level is at 4.6. Noted during this current admission, the patient received a total of 3 L of IV fluid boluses in the form of normal saline. On 06/04/2022, the patient is being seen in follow-up in intensive care unit. This morning, the patient is on 4 L of oxygen by nasal cannula and his overall respiratory status is improved considerably. Noted the patient got transferred to the intensive care unit and the patient was having a chest fibrillation with RVR. The patient was given various treatments and ultimately was switched amiodarone and he was loaded and maintained and he was receiving a dose of 1 mg/m. He did convert at around 3 PM yesterday afternoon into normal sinus rhythm. He is normotensive for now. No hypotension. Oxygen is improved and the patient is down to 4 L of O2 nasal cannula. Meanwhile, he is also Covid positive and he is receiving a combination of Decadron and Remdesivir care protocol. In terms of his echocardiogram, the patient was found to have a left ventricular ejection fraction of 45-50%. He had severe increase in septal wall thickness and mild mitral regurgitation. His pro calcitonin was elevated. His white cell count was also elevated at 27.2. Based on that, the patient was also given broad-spectrum antibiotic coverage and he was given a combination of Rocephin and Zithromax. In terms of his inflammatory markers, his LDH level was 520, CRP level was at 3.1. A repeat chest x-ray from today from today has been essentially stable with some limited infiltration of the lung bases. Meanwhile, the Doppler of the lower extremity was negative for DVT. The patient is currently on anticoagulants and he is receiving Lovenox 100 mg subcu injections every 12 hours. Is 06/05/2022, the patient is on 2 L of oxygen by nasal cannula. His cardiac rhythm remained sinus. History receiving treatment for Covid 19 infection. As his condition was improving, yesterday at around 9 PM, patient started having episodes of GI bleed. The patient had a large melanotic stools and he had several episodes of GI bleed throughout the night probably a total of 7. At that point, general surgery was consulted. Anticoagulations was placed on hold. Note that the patient received a combination of Lovenox initially and later on Eliquis regarding his atrial fibrillation. No known history of any peptic ulcer disease. Hemoglobin from this morning is down to 11.2 from a baseline of 16.4 at time of admission. Rest of the electrolytes are still pending for now. The patient was started on IV Protonix. Anticoagulations was placed on hold. Despite this GI bleed, the patient remains hemodynamically stable. No significant tachycardia. No abdominal pain. No nausea. No hematemesis. Repeat chest x-ray was done today and it shows no acute process. No significant change from the earlier chest x-ray. Some limited infiltration left lung base otherwise, the chest x-ray is essentially clear. For now, the patient is nothing by mouth. On 06/06/2022, the patient is currently in the intensive care unit. No active bleeding. He is on room air oxygen. The active issue for now for yesterday was the GI bleed. The patient underwent an EGD and the patient was found to have duodenal ulcer with evidence of bleeding and he also had duodenitis, gastritis and small hiatal hernia. EGD was completed with placement of a clip and control of bleeding and hemostasis was achieved. Since then, the patient has not had any further episodes of bleeding. Most recent hemoglobin from yesterday was 9.5. Repeat hemoglobin is pending for now. This morning, his calm and comfortable. He remains nothing by mouth. Remains on normal saline at rate of 75 mL an hour. Urine output is adequate. No significant shortness of breath. No fever or chills. echoes down to 20.5. Renal function is stable. He remains on Decadron 6 mg IV every 24 hours and he is completing his course of REMdesivir. His cardiac rhythm is sinus. He is on amiodarone. He is also metoprolol. No anticoagulants for now. Objective - Vital Signs Vital signs: Vital Signs Temp 97.8 F 06/06/22 04:00 Pulse 90 06/06/22 07:00 Resp 22 06/06/22 07:00 BP 111/70 06/06/22 07:00 Pulse Ox 95 06/06/22 07:00 FiO2 Intake & Output 06/05/22 06/06/22 06/06/22 18:59 06:59 18:59 Intake Total 900 825 Output Total 950 950 Balance -50 -125 Weight 107.6 kg Intake: IV 900 825 Azithromycin 500 mg In 250 Sodium Chloride 0.9% 250 ml @ 250 mls/hr IVPB DAILY COUNTS INCLUDE 234 BEDS AT THE [facility] Rx#:[id number] Sodium Chloride 0.9% 1, 600 825 000 ml @ 75 mls/hr IV . [id number] [facility] Rx#:[id number] cefTRIAXone 1 gm In 50 Sodium Chloride 0.9% 50 ml @ 100 mls/hr IVPB Q24HR [facility] Rx#:[id number] Output: Urine 950 950 Other: Voiding Method Urinal Urinal # Voids 0 # Bowel Movements 1 - Exam Gen. appearance the patient is a mild degree of respiratory distress currently on RA Head exam was generally normal. There was no scleral icterus or corneal arcus. Mucous membranes were moist. Neck was supple and without jugular venous distension, thyromegaly, or carotid bruits. Carotids were easily palpable bilaterally. There was no adenopathy. Lungs sounds are diminished bilaterally along with some crackles in the lung bases Heart Cardiac exam revealed the PMI to be normally situated and sized. The rhythm was regular and no extrasystoles were noted during several minutes of auscultation. The first and second heart sounds were normal and physiologic splitting of the second heart sound was noted. There were no murmurs, rubs, clicks, or gallops. Abdominal exam revealed normal bowel sounds. The abdomen was soft, non-tender, and without masses, organomegaly, or appreciable enlargement of the abdominal aorta. Examination of the extremities revealed easily palpable radial, femoral and pedal pulses. There was no cyanosis, clubbing or edema. Examination of the skin revealed no evidence of significant rashes, suspicious appearing nevi or other concerning lesions. Neurologically, the patient is awake and alert and the patient does not have any focal neurological deficit. Cranial nerves are essentially intact. - Labs CBC & Chem 7: 06/05/22 07:24 06/05/22 07:24 Labs: Abnormal Lab Results - Last 24 Hours (Table) 06/05/22 06/05/22 Range/Units 07:24 07:24 WBC 20.5 H (3.8-10.6) k/uL RBC 3.04 L (4.30-5.90) m/uL Hgb 9.5 L D (13.0-17.5) gm/dL Hct 27.2 L (39.0-53.0) % Plt Count 126 L (150-450) k/uL Neutrophils # 15.8 H (1.3-7.7) k/uL Monocytes # 1.9 H (0-1.0) k/uL Sodium 130 L (137-145) mmol/L Carbon Dioxide 20 L (22-30) mmol/L BUN 70 H (9-20) mg/dL Glucose 156 H (74-99) mg/dL Calcium 7.2 L (8.4-10.2) mg/dL Assessment and Plan Plan: Acute Covid 19 infection. The patient has limited infiltration of the lung bases bilaterally. Possibility of a Covid 19 pneumonia cannot be completely ruled out. The patient has received 2 shots of vaccination. He was receiving Molnupiravir on outpatient basis. Currently, he is on a combination of Decadron and Remdesivir matter markers are low including LDH and CRP. The chest x-ray stable and oxygen support and the patient is currently on RA Acute hypoxic respiratory failure, improving and the patient is currently on RA Acute atrial fibrillation with rapid ventricular response, converted into normal sinus rhythm Hypotension, responded to fluids, on no pressors, recovered Acute upper GI bleed, Hb is dropped to 9.5, post EGD and post clipping of a duodenal bleeding ulcer. He also is on duodenitis. Patient was taken aspirin and Plavix and nonsteroidal anti-inflammatory medication outpatient basis. Here in the hospital, he was receiving Eliquis for itch of fibrillation and Eliquis was placed on hold and the patient was given Kcentra Blood loss anemia and hemoglobin is down to 9.5 Acute kidney injury, , recovered Coronary artery disease with previous MO and coronary stenting History of lupus ordered insertion Mild lactic acidosis, improved Mild elevation of pro calcitonin level at 0.14 Acute leukocytosis with a white cell count is improving Hyperlipidemia Hypertension Previous history of CVA, recovered without any residual deficits Plan patient is on RA 02 IV fluids at 75 mL an hour of normal saline Allow the patient some clear liquid diet IV Protonix No anticoagulation , Hold the aspirin and Plavix Apply compression devices lower extremities Continue amiodarone Continue metoprolol Cardiac rhythm is sinus Obtain Doppler of the lower extremities was negative Continue IV Rocephin 1 g every 24 hours and Zithromax 500 mg was completed Repeat procal Continue multivitamins regarding his Covid 19 infection We'll continue to follow
[2022-06-06 08:48] LABS: HCT 24.6 % (39.0-53.0); HGB 8.4 gm/dL (13.0-17.5); Hypochromasia Slight; MCH 30.8 pg (25.0-35.0); MCV 90.5 fL (80.0-100.0); Mean Platelet Volume 9.2; Platelet Count 177 k/uL (150-450); RBC 2.72 m/uL (4.30-5.90); RDW 14.6 % (11.5-15.5)
[2022-06-06 08:55] LABS: African American GFR (CKD) >90 (>60 ml/min/1.73 sqM); Anion Gap 0 mmol/L; Blood Urea Nitrogen 49 mg/dL (9-20); Calcium 7.5 mg/dL (8.4-10.2); Carbon Dioxide 24 mmol/L (22-30); Chloride 108 mmol/L (98-107); Glucose 121 mg/dL (74-99); Non-African American GFR(CKD) >90 (>60 ml/min/1.73 sqM); Sodium 132 mmol/L (137-145)
[2022-06-06] MEDS: PANTOPRAZOLE 40 MG/10 ML VIAL IVP SCH (09:07)
[2022-06-06] MEDS: AMIODARONE 200 MG TAB PO SCH ×2 (09:07→20:24)
[2022-06-06] MEDS: CHOLECALCIFEROL 25 MCG (1000 IU) TABLET PO SCH (09:07)
[2022-06-06] MEDS: ASCORBIC ACID 500 MG TAB PO SCH (09:07)
[2022-06-06] MEDS: FAMOTIDINE 20 MG TAB PO SCH ×2 (09:07→20:24)
[2022-06-06] MEDS: SODIUM CHLORIDE 0.9% 1,000 ML IV SCH ×2 (09:07→14:27)
[2022-06-06] MEDS: METOPROLOL TARTRATE 25 MG TAB PO SCH ×2 (09:07→20:24)
[2022-06-06] MEDS: ZINC SULFATE 220 MG CAP PO SCH (09:07)
[2022-06-06] MEDS: MULTIVITAMINS, THERA 1 EACH TAB PO SCH (09:07)
[2022-06-06] MEDS: DEXAMETHASONE SOD PHOSPHATE 10 MG/ML 1 ML VIAL IV SCH (09:07)
--- NOTE | 2022-06-06 10:23 | P.PN ---
Subjective Progress Note Date: 06/06/22 Principal diagnosis: Bleeding duodenal ulcer Patient doing well today. Denies pain. No bowel movements since yesterday. Hemoglobin 8.5. No blood given. He is hematologically stable. Objective - Vital Signs Vital signs: Vital Signs Temp 97.8 F 06/06/22 04:00 Pulse 90 06/06/22 07:00 Resp 22 06/06/22 07:00 BP 111/70 06/06/22 07:00 Pulse Ox 95 06/06/22 07:00 FiO2 Intake & Output 06/05/22 06/06/22 06/06/22 18:59 06:59 18:59 Intake Total 900 825 Output Total 950 950 Balance -50 -125 Weight 107.6 kg Intake: IV 900 825 Azithromycin 500 mg In 250 Sodium Chloride 0.9% 250 ml @ 250 mls/hr IVPB DAILY [facility] Rx#:[id number] Sodium Chloride 0.9% 1, 600 825 000 ml @ 75 mls/hr IV . [id number] [facility] Rx#:[id number] cefTRIAXone 1 gm In 50 Sodium Chloride 0.9% 50 ml @ 100 mls/hr IVPB Q24HR [facility] Rx#:[id number] Output: Urine 950 950 Other: Voiding Method Urinal Urinal # Voids 0 # Bowel Movements 1 - Exam Abdomen: Soft, nondistended, nontender - Labs CBC & Chem 7: 06/06/22 08:24 06/06/22 08:24 Labs: Abnormal Lab Results - Last 24 Hours (Table) 06/06/22 06/06/22 Range/Units 08:24 08:24 WBC 18.5 H (3.8-10.6) k/uL RBC 2.72 L (4.30-5.90) m/uL Hgb 8.4 L (13.0-17.5) gm/dL Hct 24.6 L (39.0-53.0) % Sodium 132 L (137-145) mmol/L Chloride 108 H (98-107) mmol/L BUN 49 H (9-20) mg/dL Glucose 121 H (74-99) mg/dL Calcium 7.5 L (8.4-10.2) mg/dL Assessment and Plan (1) Acute GI bleeding Narrative/Plan: Patient doing well today after EGD with clipping of duodenal ulcer yesterday. Continue aggressive antacid therapy. Hold anticoagulation. May begin clear liquids. Current Visit: Yes Status: Acute Code(s): K92.2 - GASTROINTESTINAL HEMORRHAGE, UNSPECIFIED SNOMED Code(s): 12660736
[2022-06-06 10:50] LABS: Metamyelocytes # (M) 0.18 k/uL (0); Metamyelocytes % 1 %; Monocytes # (M) 1.42 k/uL (0-1.0); Neutrophils % (M) 82 %; Nucleated Red Blood Cells 4 /100 WBC (0-0); Total Cells Counted 100; WBC 17.8 k/uL (3.8-10.6)
[2022-06-06 10:51] LABS: Polychromasia Present
[2022-06-06] MEDS: REMDESIVIR 100 MG in SODIUM CHLORIDE 0.9% 250 ML IVPB SCH (14:27)
--- NOTE | 2022-06-06 14:27 | P.PN ---
Subjective Progress Note Date: 06/06/22 Principal diagnosis: Acute Covid 19 infection Acute hypoxic respiratory failure Acute atrial fibrillation with rapid ventricular response Hypotension, responded to fluids Acute kidney injury 62-year-old male with a past medical history significant for coronary disease CVA TIA former smoker presenting to the ER this morning for evaluation of generalized weakness not feeling well symptom has been going on for the last few days and apparently got worse overnight for the patient presented to hospital patient mention he did have no strength and has been feeling weak all over no energy patient did have some nausea but no vomiting no abdominal pain did have some diarrhea patient also complaining of shortness of breath on minimal exertion even at rest he did have a cough mild to moderate intensity mostly dry in nature with the symptoms the patient has been evaluated by ER physician on arrival to the ER the patient was afebrile and no fever has been recorded subsequently patient did have elevated lactic acid his white count is normal BUN/creatinine mildly elevated liver enzymes are normal COVID test came back positive RSV influenza was negative patient did have a chest x-ray 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 patient to continue with the Lovenox and ascorbic acid and dexamethasone however we will add Remdisivir for possible worsening of his underlying covid 19 pneumonia - We will give one-time dose of Lasix 20 mg IV 1 24 hour interval change 06/04/2022 the patient is seen and evaluated in follow-up in intensive care unit. Currently on 4 L of oxygen by nasal cannula and his overall respiratory status i s improved. -- patient was transferred to the intensive care unit yesterday when he went into atrial fibrillation with RVR. The patient was given various treatments and ultimately was started on amiodarone and he was loaded and maintained and he was receiving a dose of 1 mg/m. patient converted to normal sinus rhythm yesterday afternoon. He is normotensive for now. Oxygen is improved and the patient is down to 4 L of O2 nasal cannula. Patient is Covid positive and he is receiving a combination of Decadron and Remdesivir care protocol. In terms of his echocardiogram, the patient was found to have a left ventricular ejection fraction of 45-50%. He had severe increase in septal wall thickness and mild mitral regurgitation. His pro calcitonin was elevated. His white cell count was also elevated at 27.2. Based on that, the patient was also given broad-spectrum antibiotic coverage and he was given a combination of Rocephin and Zithromax. In terms of his inflammatory markers, his LDH level was 520, CRP level was at 3.1. A repeat chest x-ray from today from today has been essentially stable with some limited infiltration of the lung bases. Meanwhile, the Doppler of the lower extremity was negative for DVT. The patient is currently on anticoagulants and he is receiving Lovenox 100 mg subcu injections every 12 hours. 24 hour interval change 06/05/2022, - the patient is seen and evaluated in room at bedside, remains on 2 L of oxygen by nasal cannula. His cardiac rhythm remained sinus. History receiving treatment for Covid 19 infection. As his condition was improving, yesterday at around 9 PM, patient started having episodes of GI bleed. The patient had a large melanotic stools and he had several episodes of GI bleed throughout the night probably a total of 7. At that point, general surgery was consulted. Anticoagulations was placed on hold. Note that the patient received a combination of Lovenox initially and later on Eliquis regarding his atrial fibrillation. No known history of any peptic ulcer disease. Hemoglobin from this morning is down to 11.2 from a baseline of 16.4 at time of admission. Rest of the electrolytes are still pending for now. The patient was started on IV Protonix. Anticoagulations was placed on hold. Despite this GI bleed, the patient remains hemodynamically stable. No significant tachycardia. No abdominal pain. No nausea. No hematemesis. Repeat chest x-ray was done today and it shows no acute process. No significant change from the earlier chest x- ray. Some limited infiltration left lung base otherwise, the chest x-ray is essentially clear. Keep the patient nothing by mouth Start the patient on Protonix Discontinue Eliquis; we will monitor CBC closely 24 hour interval change 06/06/2022 -- the patient is seen and evaluated and discussed with nursing staff; currently in the intensive care unit. -No further active bleeding. The patient underwent an EGD and the patient was found to have duodenal ulcer with evidence of bleeding and he also had duode nitis, gastritis and small hiatal hernia. EGD was completed with placement of a clip and control of bleeding and hemostasis was achieved; hemoglobin down to 8.4 this morning. - Patient remains nothing by mouth. Remains on normal saline at rate of 75 mL an hour. Urine output is adequate. -White blood count down to 17.8 from 20.5 yesterday. Renal function is stable. - He remains on Decadron 6 mg IV every 24 hours and he is completing his course of REMdesivir. His cardiac rhythm is sinus. He is on amiodarone. He is also metoprolol. No anticoagulants for now. Objective - Vital Signs Vital signs: Vital Signs Temp 97.8 F 06/06/22 04:00 Pulse 90 06/06/22 07:00 Resp 22 06/06/22 07:00 BP 111/70 06/06/22 07:00 Pulse Ox 95 06/06/22 07:00 FiO2 Intake & Output 06/05/22 06/06/22 06/06/22 18:59 06:59 18:59 Intake Total 900 825 Output Total 950 950 Balance -50 -125 Weight 107.6 kg Intake: IV 900 825 Azithromycin 500 mg In 250 Sodium Chloride 0.9% 250 ml @ 250 mls/hr IVPB DAILY [facility] Rx#:[id number] Sodium Chloride 0.9% 1, 600 825 000 ml @ 75 mls/hr IV . [id number] [facility] Rx#:[id number] cefTRIAXone 1 gm In 50 Sodium Chloride 0.9% 50 ml @ 100 mls/hr IVPB Q24HR [facility] Rx#:[id number] Output: Urine 950 950 Other: Voiding Method Urinal Urinal # Voids 0 # Bowel Movements 1 - Exam PHYSICAL EXAMINATION: GENERAL: The patient is alert and oriented x3, not in any acute distress. Well developed, well nourished. HEENT: Pupils are round and equally reacting to light. EOMI. No scleral icterus. No conjunctival pallor. Normocephalic, atraumatic. No pharyngeal erythema. No thyromegaly. CARDIOVASCULAR: S1 and S2 present. No murmurs, rubs, or gallops. PULMONARY: Chest is clear to auscultation, no wheezing or crackles. ABDOMEN: Soft, nontender, nondistended, normoactive bowel sounds. No palpable or ganomegaly. MUSCULOSKELETAL: No joint swelling or deformity. EXTREMITIES: No cyanosis, clubbing, or pedal edema. NEUROLOGICAL: Gross neurological examination did not reveal any focal deficits. SKIN: No rashes. - Labs CBC & Chem 7: 06/06/22 08:24 06/06/22 08:24 Labs: Abnormal Lab Results - Last 24 Hours (Table) 06/06/22 06/06/22 Range/Units 08:24 08:24 WBC 18.5 H (3.8-10.6) k/uL RBC 2.72 L (4.30-5.90) m/uL Hgb 8.4 L (13.0-17.5) gm/dL Hct 24.6 L (39.0-53.0) % Sodium 132 L (137-145) mmol/L Chloride 108 H (98-107) mmol/L BUN 49 H (9-20) mg/dL Glucose 121 H (74-99) mg/dL Calcium 7.5 L (8.4-10.2) mg/dL Assessment and Plan Assessment: 1. Generalized weakness - Likely multifactorial; related to COVID-19 right ear infection and acute renal injury 2. COVID-19 infection; ID has been consulted and patient has been placed on COVID-19 vitamin cocktail along with subcu Lovenox; ID to recommend on need for antiviral therapy - We will monitor inflammatory markers periodically 3. Acute renal injury; cautious IV fluid hydration with normal saline; we will monitor strict MIRA's, daily weights, renal function and electrolytes; avoid nephrotoxins and hypotension 4. Lactic acidosis; likely related to acute renal injury and COVID-19 infection; continue with plan of care as indicated above and monitor lactic acid levels closely 5. Hyperbilirubinemia; possibly related to COVID-19 infection; we will monitor hepatic function panel and initiate further workup if remains elevated DVT prophylaxis; SCDs/subcu Lovenox CODE STATUS; full code
[2022-06-06] MEDS: ACETAMINOPHEN TAB 325 MG TAB PO PRN (18:16)
[2022-06-06] MEDS: lisinopriL 20 MG TAB PO SCH (20:24)
[2022-06-06] MEDS: ATORVASTATIN 40 MG TAB PO SCH (20:24)
[2022-06-07] MEDS: SODIUM CHLORIDE 0.9% 1,000 ML IV SCH ×2 (05:08→22:37)
--- NOTE | 2022-06-07 07:56 | P.PN ---
Subjective Progress Note Date: 06/05/22 Principal diagnosis: Covid 19 Pneumonia Patient is a 62-year-old male with a past medical history significant for coronary disease CVA TIA former smoker presenting to the ER this morning for evaluation of generalized weakness not feeling well symptom has been going on f or the last few days, patient has been diagnosed with covid 19 pneumonia. Patient did went into A. 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 On today's evaluation that is 06/05/2022, the patient remains to be afebrile, the patient denies any chest pain , the patient cough has decreased intensity and mostly dry in nature, the patient is breathing slightly comfortably and down to 2 L nasal cannula, no nausea no vomiting no abdominal pain or diarrhea Objective - Vital Signs Vital signs: Vital Signs Temp 97.9 F 06/05/22 12:00 Pulse 93 06/05/22 14:00 Resp 22 06/05/22 14:00 BP 103/70 06/05/22 14:00 Pulse Ox 99 06/05/22 14:00 FiO2 Intake & Output 06/04/22 06/05/22 06/05/22 18:59 06:59 18:59 Intake Total 610 120 675 Output Total 925 800 600 Balance -315 -680 75 Weight 106.7 kg Intake: IV 610 120 675 Azithromycin 500 mg In 250 250 Sodium Chloride 0.9% 250 ml @ 250 mls/hr IVPB DAILY [facility] Rx#:[id number] Remdesivir 100 mg In 250 Sodium Chloride 0.9% 250 ml @ 250 mls/hr IVPB DAILY@1400 [facility] Rx#: [id number] Sodium Chloride 0.9% 1, 60 120 375 000 ml @ 75 mls/hr IV . [id number] [facility] Rx#:[id number] cefTRIAXone 1 gm In 50 50 Sodium Chloride 0.9% 50 ml @ 100 mls/hr IVPB Q24HR [facility] Rx#:[id number] Output: Urine 925 800 600 Other: Voiding Method Urinal Urinal Urinal # Voids 0 0 # Bowel Movements 1 1 - Exam GENERAL DESCRIPTION: Middle-aged male lying in bed in no distress RESPIRATORY SYSTEM: Unlabored breathing , decreased intensity of breath sounds HEART: S1 S2 regular rate and rhythm , ABDOMEN: Soft , no tenderness EXTREMITIES: No edema feet - Labs CBC & Chem 7: 06/06/22 08:24 06/06/22 08:24 Labs: Abnormal Lab Results - Last 24 Hours (Table) 06/05/22 06/05/22 06/05/22 Range/Units 00:54 07:24 07:24 WBC 22.4 H 20.5 H (3.8-10.6) k/uL RBC 3.69 L 3.04 L (4.30-5.90) m/uL Hgb 11.2 L D 9.5 L D (13.0-17.5) gm/dL Hct 33.1 L 27.2 L (39.0-53.0) % Plt Count 140 L 126 L (150-450) k/uL Neutrophils # 18.4 H 15.8 H (1.3-7.7) k/uL Monocytes # 1.9 H 1.9 H (0-1.0) k/uL Sodium 130 L (137-145) mmol/L Carbon Dioxide 20 L (22-30) mmol/L BUN 70 H (9-20) mg/dL Glucose 156 H (74-99) mg/dL Calcium 7.2 L (8.4-10.2) mg/dL Assessment and Plan (1) Coronavirus infection Current Visit: Yes Status: Acute Code(s): B34.2 - CORONAVIRUS INFECTION, UNSPECIFIED SNOMED Code(s): 467680065 Plan: 1patient presented to hospital with generalized weakness which is likely multifactorial in this patient with a likely component of dehydration with elevated BUN/creatinine and a component of COVID-19 pneumonia, however the patient is not running any fever and chest x-ray repeated 06/02/2022 is showing bibasilar infiltrate, patient did have a completion of A. fib with RVR and worsening respiratory status requiring transfer to the ICU on 06/03/2022 2patient has shown clinical improvement and will continue with the Lovenox and ascorbic acid and dexamethasone along with Remdisivir day #4 and continue with supportive care Time with Patient: Less than 30
--- NOTE | 2022-06-07 07:58 | P.PN ---
Subjective Progress Note Date: 06/06/22 Principal diagnosis: Covid 19 Pneumonia Patient is a 62-year-old male with a past medical history significant for coronary disease CVA TIA former smoker presenting to the ER this morning for evaluation of generalized weakness not feeling well symptom has been going on f or the last few days, patient has been diagnosed with covid 19 pneumonia. Patient did went into A. 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 On today's evaluation that is 06/06/2022, the patient continues to be afebrile, the patient is breathing comfortably on room air, the patient denies having any chest pain or palpitation did have occasional dry cough no nausea no vomiting no abdominal pain no diarrhea Objective - Vital Signs Vital signs: Vital Signs Temp 97.6 F 06/06/22 14:00 Pulse 68 06/06/22 14:00 Resp 18 06/06/22 14:00 BP 110/70 06/06/22 14:00 Pulse Ox 94 L 06/06/22 14:00 FiO2 Intake & Output 06/05/22 06/06/22 06/06/22 18:59 06:59 18:59 Intake Total 900 825 Output Total 950 950 900 Balance -50 -125 -900 Weight 107.6 kg Intake: IV 900 825 Azithromycin 500 mg In 250 Sodium Chloride 0.9% 250 ml @ 250 mls/hr IVPB DAILY [facility] Rx#:[id number] Sodium Chloride 0.9% 1, 600 825 000 ml @ 75 mls/hr IV . [id number] [facility] Rx#:[id number] cefTRIAXone 1 gm In 50 Sodium Chloride 0.9% 50 ml @ 100 mls/hr IVPB Q24HR [facility] Rx#:[id number] Output: Urine 950 950 900 Other: Voiding Method Urinal Urinal Urinal # Voids 0 # Bowel Movements 1 - Exam GENERAL DESCRIPTION: Middle-aged male lying in bed in no distress RESPIRATORY SYSTEM: Unlabored breathing , decreased intensity of breath sounds , no wheeze HEART: S1 S2 regular rate and rhythm , ABDOMEN: Soft , no tenderness EXTREMITIES: No edema feet - Labs CBC & Chem 7: 06/06/22 08:24 06/06/22 08:24 Labs: Abnormal Lab Results - Last 24 Hours (Table) 06/06/22 06/06/22 06/06/22 Range/Units 08:24 08:24 08:24 WBC 17.8 H (3.8-10.6) k/uL RBC 2.72 L (4.30-5.90) m/uL Hgb 8.4 L (13.0-17.5) gm/dL Hct 24.6 L (39.0-53.0) % Neutrophils # (Manual) 14.60 H (1.3-7.7) k/uL Monocytes # (Manual) 1.42 H (0-1.0) k/uL Metamyelocytes # (Man) 0.18 H (0) k/uL Nucleated RBCs 4 H (0-0) /100 WBC Sodium 132 L (137-145) mmol/L Chloride 108 H (98-107) mmol/L BUN 49 H (9-20) mg/dL Glucose 121 H (74-99) mg/dL Calcium 7.5 L (8.4-10.2) mg/dL Procalcitonin 0.14 H (0.02-0.09) ng/mL Assessment and Plan (1) Coronavirus infection Current Visit: Yes Status: Acute Code(s): B34.2 - CORONAVIRUS INFECTION, UNSPECIFIED SNOMED Code(s): 947666724 Plan: 1patient presented to hospital with generalized weakness which is likely multifactorial in this patient with a likely component of dehydration with elevated BUN/creatinine and a component of COVID-19 pneumonia, however the patient is not running any fever and chest x-ray repeated 06/02/2022 is showing bibasilar infiltrate, patient did have a completion of A. fib with RVR and worsening respiratory status requiring transfer to the ICU on 06/03/2022, brigido ent was subsequently stabilized and has been moved out of the ICU on 01/16/2023 2patient continues to show clinical improvement, patient will continue with the Lovenox and ascorbic acid and dexamethasone, patient has completed 5 day course of Remdisivir as of 06/06/2022 and continue with supportive care Time with Patient: Less than 30
[2022-06-07 08:48] LABS: HCT 22.6 % (39.6-50.0); MCH 28.8 pg (27.0-32.0); Mean Platelet Volume 10.3 fL (9.5-12.2); NRBC Per 100 WBC 1.7 /100 WBCS (0.0-0.0); Platelet Count 191 X 10*3/uL (140-440); RBC 2.43 X 10*6/uL (4.40-5.60); RDW 15.1 % (11.5-14.5); WBC 23.49 X 10*3/uL (4.50-10.00)
[2022-06-07] MEDS: ZINC SULFATE 220 MG CAP PO SCH (09:24)
[2022-06-07] MEDS: AMIODARONE 200 MG TAB PO SCH ×2 (09:25→21:52)
[2022-06-07] MEDS: DEXAMETHASONE SOD PHOSPHATE 10 MG/ML 1 ML VIAL IV SCH (09:25)
[2022-06-07] MEDS: FAMOTIDINE 20 MG TAB PO SCH ×2 (09:25→21:52)
[2022-06-07] MEDS: CHOLECALCIFEROL 25 MCG (1000 IU) TABLET PO SCH ×2 (09:25→14:04)
[2022-06-07] MEDS: PANTOPRAZOLE 40 MG/10 ML VIAL IVP SCH ×2 (09:25→22:37)
[2022-06-07] MEDS: ASCORBIC ACID 500 MG TAB PO SCH (09:25)
[2022-06-07] MEDS: MULTIVITAMINS, THERA 1 EACH TAB PO SCH (09:26)
[2022-06-07] MEDS: METOPROLOL TARTRATE 25 MG TAB PO SCH ×2 (09:26→21:52)
[2022-06-07 10:17] LABS: Basophils # (M) 0 X 10*3/uL (0.00-0.10); Eosinophils # (M) 0 X 10*3/uL (0.04-0.35); Lymphocytes # (M) 0.94 X 10*3/uL (0.90-5.00); Metamyelocytes % 3 % (0-0); Monocytes # (M) 2.11 X 10*3/uL (0.20-1.00); Neutrophils # (M) 19.73 X 10*3/uL (2.00-8.90); Neutrophils % (M) 84 %; RBC Morphology NORMAL
--- NOTE | 2022-06-07 11:58 | P.PN ---
Subjective 62-year-old male with a past medical history significant for coronary disease CVA TIA former smoker presenting to the ER this morning for evaluation of generalized weakness not feeling well symptom has been going on for the last few days and apparently got worse overnight for the patient presented to hospital patient mention he did have no strength and has been feeling weak all over no energy patient did have some nausea but no vomiting no abdominal pain did have some diarrhea patient also complaining of shortness of breath on minim al exertion even at rest he did have a cough mild to moderate intensity mostly dry in nature with the symptoms the patient has been evaluated by ER physician on arrival to the ER the patient was afebrile and no fever has been recorded subsequently patient did have elevated lactic acid his white count is normal BUN/creatinine mildly elevated liver enzymes are normal COVID test came back positive RSV influenza was negative patient did have a chest x-ray 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 patient to continue with the Lovenox and ascorbic acid and dexamethasone however we will add Remdisivir for possible worsening of his underlying covid 19 pneumonia - We will give one-time dose of Lasix 20 mg IV 1 06/03/2022 Patient today was in the ICU in the morning with worsening respiratory distress, he was on 15 L/m of oxygen, also blood pressure was on the low side with systolic in the 90s with creatinine went up to 1.6 and today went down to 1.3. Also patient developed A. fib and RVR which contributed also to his hypotension, eventually patient able with by cardiology and pulmonary/critical care team and he was placed on small doses of pressors of Levophed, also I was started on normal saline 75 mL/h we'll close monitoring of blood pressure in the ICU. Cardizem drip which was started already switched to amiodarone drip and also he is on therapeutic dose of Lovenox for his A. fib and RVR Patient also respiratory status started improving and in the evening his oxygen requirements down to 7 L/m while he continues on treatment for his Covid infection with IV Decadron and remdisivir, Other than that labs showing leukocytosis while he is on steroids, creatinine improving. CRP slightly lower while LDH is normal. Distal tachypneic. Ultrasound of the neck is negative for DVT Echocardiogram showing ejection fraction of 45-50% with severe LVH Chest x-ray showing bibasilar infiltrates. Potential stone and is only mildly elevated at 0.13 however patient was placed on Zithromax 3 days. 06/07/2022 Patient's was admitted initially with a lateral Covid pneumonia and he finishes treatment with remdisivir , is saturating well with minimal tachypnea, His hospital course was completed with A. fib, rate is controlled now on metoprolol as well as amiodarone, income tax manager on the case, was on Lovenox 100 mg twice a day which was stopped because of a drop of his hemoglobin. He status post EGD and clipping of his bleeding duodenal ulcer. Last night he passed clots in his stool, he was hypotensive with blood pressure as low as 69/35, currently blood pressure 92/55. Patient denies chest pain or dyspnea but he feels weak. Hemoglobin dropped to 8.4.7.0. We going to give 1 unit of blood transfusion, 3 days ago on 06/04 hemoglobin was about 14. Discussed with the staff to give 1 units of blood per protocol after risks and benefits explained for the patient Continue with Protonix with increased frequency to twice a day. Also on Pepcid. Also I metoprolol 25 twice a day, low-dose of lisinopril 40 mg down to 20 mg tonight we will keep monitoring hemoglobin, also creatinine and electrolytes and vitals Review of systems CONSTITUTIONAL: No fever, no malaise, no fatigue. HEENT: No recent visual problems or hearing problems. Denied any sore throat. CARDIOVASCULAR: No orthopnea, PND, no palpitations, no syncope. PULMONARY: No shortness of breath, no cough, no hemoptysis. Active Medications Generic Name Dose Route Start Last Admin Trade Name Freq PRN Reason Stop Dose Admin Acetaminophen 650 mg 06/02/22 15:46 06/06/22 18:16 Acetaminophen Tab 325 Mg Tab PO 650 mg Q6HR PRN Administration Fever and/ or Pain Amiodarone HCl 200 mg 06/04/22 09:00 06/07/22 09:25 Amiodarone 200 Mg Tab PO 200 mg BID DHRUV Administration Ascorbic Acid 500 mg 06/01/22 15:00 06/07/22 09:25 Ascorbic Acid 500 Mg Tab PO 500 mg DAILY DHRUV Administration Atorvastatin Calcium 40 mg 06/01/22 21:00 06/06/22 20:24 Atorvastatin 40 Mg Tab PO 40 mg HS DHRUV Administration Cholecalciferol 50 mcg 06/01/22 15:00 06/07/22 09:25 Cholecalciferol 25 Mcg (1000 Iu) Tablet PO 50 mcg DAILY DHRUV Administration Dexamethasone Sodium Phosphate 6 mg 06/01/22 18:45 06/07/22 09:25 Dexamethasone Sod Phosphate 10 Mg/Ml 1 Ml Vial IV 6 mg DAILY DHRUV Administration Famotidine 20 mg 06/04/22 09:00 06/07/22 09:25 Famotidine 20 Mg Tab PO 20 mg BID DHRUV Administration Ferrous Sulfate 325 mg 06/07/22 12:00 Ferrous Sulfate 325 Mg Tab PO BID-W/MEALS DHRUV Sodium Chloride 1,000 mls @ 75 mls/hr 06/01/22 13:15 06/07/22 05:08 Saline 0.9% IV 75 mls/hr .[id number] DHRUV Administration Ceftriaxone Sodium 1 gm/ 50 mls @ 100 mls/hr 06/03/22 09:00 06/07/22 09:23 Sodium Chloride IVPB 100 mls/hr Q24HR DHRUV Administration Protocol Lisinopril 20 mg 06/07/22 21:00 Lisinopril 20 Mg Tab PO HS [facility] Metoprolol Tartrate 25 mg 06/04/22 09:00 06/07/22 09:26 Metoprolol Tartrate 25 Mg Tab PO Not Given BID [facility] Miscellaneous Information 0 each 06/05/22 09:58 Kcentra Per Pharmacy 1 Each Misc MISCELLANE DIRECTED PRN PER PHARMACY DOSING Multivitamins 1 each 06/02/22 09:00 06/07/22 09:26 Multivitamins, Thera 1 Each Tab PO 1 each DAILY DHRUV Administration Naloxone HCl 0.2 mg 06/01/22 13:02 Naloxone 0.4 Mg/Ml 1 Ml Vial IV Q2M PRN Opioid Reversal Ondansetron HCl 4 mg 06/02/22 15:46 06/05/22 04:59 Ondansetron 4 Mg/2 Ml Vial IVP 4 mg Q6HR PRN Administration Nausea And Vomiting Pantoprazole Sodium 40 mg 06/07/22 21:00 Pantoprazole 40 Mg/10 Ml Vial IVP BID DHRUV Zinc Sulfate 220 mg 06/01/22 15:00 06/07/22 09:24 Zinc Sulfate 220 Mg Cap PO 220 mg DAILY DHRUV Administration Objective - Vital Signs Vital signs: Vital Signs Temp 97.6 F 06/07/22 06:58 Pulse 75 06/07/22 09:25 Resp 17 06/07/22 09:25 BP 92/55 06/07/22 06:58 Pulse Ox 95 06/07/22 07:54 FiO2 Intake & Output 06/06/22 06/07/22 06/07/22 18:59 06:59 18:59 Output Total 1950 1100 410 Balance -1950 -1100 -410 Output: Urine 1949 1100 410 Other: Voiding Method Urinal Urinal Urinal # Bowel Movements 1 - Exam GENERAL: The patient is alert and oriented x3, not in any acute distress. Well developed, well nourished. HEENT: Pupils are round and equally reacting to light. EOMI. No scleral icterus. No conjunctival pallor. Normocephalic, atraumatic. No pharyngeal erythema. No thyromegaly. CARDIOVASCULAR: S1 and S2 present. No murmurs, rubs, or gallops. -PULMONARY: Chest is clear to auscultation, no wheezing or bilateral scattered crepitation, improving ABDOMEN: Soft, nontender, nondistended, normoactive bowel sounds. No palpable organomegaly. MUSCULOSKELETAL: No joint swelling or deformity. EXTREMITIES: No cyanosis, clubbing, or pedal edema. NEUROLOGICAL: Gross neurological examination did not reveal any focal deficits. SKIN: No rashes. no petechiae. - Labs CBC & Chem 7: 06/07/22 04:52 06/06/22 08:24 Labs: Abnormal Lab Results - Last 24 Hours (Table) 06/07/22 06/07/22 Range/Units 04:52 04:52 WBC 23.49 H (4.50-10.00) X 10*3/uL RBC 2.43 L (4.40-5.60) X 10*6/uL Hgb 7.0 L (13.0-17.0) g/dL Hct 22.6 L (39.6-50.0) % MCHC 31.0 L (32.0-37.0) g/dL RDW 15.1 H (11.5-14.5) % Absolute Nucleated RBC 0.41 H (0.00-0.00) X 10*3/uL Metamyelocytes % 3 H (0-0) % Neutrophils # (Manual) 19.73 H (2.00-8.90) X 10*3/uL Monocytes # (Manual) 2.11 H (0.20-1.00) X 10*3/uL Eosinophils # (Manual) 0 L (0.04-0.35) X 10*3/uL NRBC/100 WBC Diff 1.7 H (0.0-0.0) /100 WBCS C-Reactive Protein 1.00 H (0.00-0.80) mg/dL Assessment and Plan Assessment: Bleeding duodenal ulcer status post EGD and clipping on 06/05 Acute blood loss anemia Hypertension secondary to above Bilateral Covid pneumonia Acute hypoxic respiratory failure Increased inflammatory markers New-onset A. fib and RVR Acute kidney injury, improved Leukocytosis Plan: Give one unit of blood Continue with dexamethasone Continue with vitamin C, vitamin D and zinc Continue with normal saline continue with amiodarone and metoprolol Lower dose of lisinopril Surgery team on the case Pulmonary consult Infectious disease consult Cardiology consult Labs and medication were reviewed.. Continue same treatment. Continue with symptomatic treatment. Resume home medication. Monitor lytes and vitals. DVT and GI prophylaxis. Further recommendations as per clinical course of the patient DVT prophylaxis: Subcutaneous Lovenox GI Prophylaxis: Pepcid Prognosis is guarded
--- NOTE | 2022-06-07 12:21 | P.PN ---
Subjective Progress Note Date: 06/07/22 Principal diagnosis: COVID-19, Atrial fibrillation RVR, GI bleeding 62-year-old male patient of the transferred to the intensive care unit yesterday evening for transfusion yesterday a chest fibrillation and rapid ventricular response. Noted the patient was hospitalized on 06/01/2022 for generalized weakness and Covid 19 infection. He is known to have coronary artery disease, previous CVA, and hyperlipidemia. Noted the patient came into the hospital and he was already receiving MOlnipiravir for Covid 19 infection on outpatient basis. He was initially on 2 L of oxygen by nasal cannula, admission. His chest x-ray showed some limited bibasilar pulmonary infiltration without any clear airspace disease of consolidation. And with the ongoing into fibrillation RVR, the patient became more hypoxic and currently is on 15 L high flow oxygen. In terms of his atrial fibrillation, the patient remains in A. fib RVR. Overnight, he was given Cardizem which essentially dropped his pressure to 80/60 and following that, the Cardizem drip was discontinued and the patient was given 1 L bolus, Lopressor bolus, and later on switched to amiodarone per protocol. He was given a bolus of amiodarone 150 mg and currently is on amiodarone at 0.5 g milligrams per minutes. He is also on anticoagulations those has been modified from a prophylactic dose to therapeutic dose of 100 mg subcu every 12 hours. No previous echocardiogram and an echocardiogram will be obtained today. In terms of his Covid 19 infection, the patient was started on Decadron and is currently receiving Decadron 6 mg IV every 24 hours. He is also on Remdesivir per protocol. The patient is also on IV fluids with normal saline at the rate of 20 mL an hour. Blood work from today shows WBC count of 27.2 with a hemoglobin of 16.1 and a platelet count of 113. Note that his pro calcitonin level at time of admission was 0.14. His CRP level was at 3.5. His lactic acid was at 2.6 and dropped down to 1.8 and currently is at 2.2. Awaiting follow-up labs from today. Noted the patient had an acute kidney injury and the creatinine was up to 1.6 from yesterday with a BUN of 44 and a serum bicarb of 18 and his sodium level of 133. His potassium level is at 4.6. Noted during this current admission, the patient received a total of 3 L of IV fluid boluses in the form of normal saline. On 06/04/2022, the patient is being seen in follow-up in intensive care unit. This morning, the patient is on 4 L of oxygen by nasal cannula and his overall respiratory status is improved considerably. Noted the patient got transferred to the intensive care unit and the patient was having a chest fibrillation with RVR. The patient was given various treatments and ultimately was switched amiodarone and he was loaded and maintained and he was receiving a dose of 1 mg/m. He did convert at around 3 PM yesterday afternoon into normal sinus rhythm. He is normotensive for now. No hypotension. Oxygen is improved and the patient is down to 4 L of O2 nasal cannula. Meanwhile, he is also Covid positive and he is receiving a combination of Decadron and Remdesivir care protocol. In terms of his echocardiogram, the patient was found to have a left ventricular ejection fraction of 45-50%. He had severe increase in septal wall thickness and mild mitral regurgitation. His pro calcitonin was elevated. His white cell count was also elevated at 27.2. Based on that, the patient was also given broad-spectrum antibiotic coverage and he was given a combination of Rocephin and Zithromax. In terms of his inflammatory markers, his LDH level was 520, CRP level was at 3.1. A repeat chest x-ray from today from today has been essentially stable with some limited infiltration of the lung bases. Meanwhile, the Doppler of the lower extremity was negative for DVT. The patient is currently on anticoagulants and he is receiving Lovenox 100 mg subcu injections every 12 hours. Is 06/05/2022, the patient is on 2 L of oxygen by nasal cannula. His cardiac rhythm remained sinus. History receiving treatment for Covid 19 infection. As his condition was improving, yesterday at around 9 PM, patient started having episodes of GI bleed. The patient had a large melanotic stools and he had several episodes of GI bleed throughout the night probably a total of 7. At that point, general surgery was consulted. Anticoagulations was placed on hold. Note that the patient received a combination of Lovenox initially and later on Eliquis regarding his atrial fibrillation. No known history of any peptic ulcer disease. Hemoglobin from this morning is down to 11.2 from a baseline of 16.4 at time of admission. Rest of the electrolytes are still pending for now. The patient was started on IV Protonix. Anticoagulations was placed on hold. Despite this GI bleed, the patient remains hemodynamically stable. No significant tachycardia. No abdominal pain. No nausea. No hematemesis. Repeat chest x-ray was done today and it shows no acute process. No significant change from the earlier chest x-ray. Some limited infiltration left lung base otherwise, the chest x-ray is essentially clear. For now, the patient is nothing by mouth. On 06/06/2022, the patient is currently in the intensive care unit. No active bleeding. He is on room air oxygen. The active issue for now for yesterday was the GI bleed. The patient underwent an EGD and the patient was found to have duodenal ulcer with evidence of bleeding and he also had duodenitis, gastritis and small hiatal hernia. EGD was completed with placement of a clip and control of bleeding and hemostasis was achieved. Since then, the patient has not had any further episodes of bleeding. Most recent hemoglobin from yesterday was 9.5. Repeat hemoglobin is pending for now. This morning, his calm and comfortable. He remains nothing by mouth. Remains on normal saline at rate of 75 mL an hour. Urine output is adequate. No significant shortness of breath. No fever or chills. echoes down to 20.5. Renal function is stable. He r emains on Decadron 6 mg IV every 24 hours and he is completing his course of REMdesivir. His cardiac rhythm is sinus. He is on amiodarone. He is also metoprolol. No anticoagulants for now. Evaluating this patient today on 06/07/2022 on a general medical floor. Patient is sitting up in bed, on room air, in no apparent distress. Patient denies shortness of breath, fevers overnight. Patient continues to deny any more episodes of bloody bowel movements overnight. Denies hematemeiss, abdominal pain. Patient is postoperative day #2 EGD and clipping. No new chest x-ray to review today. Patient's hemoglobin continues to trend down, but has not required any blood transfusions. His CBC from today shows WBC count of 23.5, hemoglobin 7, hematocrit 22.6, platelets 191,000. No new chemistry to review today. Patient has completed his course of remdesivir for Covid 19 infection. He is receiving normal saline at 75 mL per hour. He is receiving Protonix for GI prophylaxis, and DVT prophylaxis is on hold. He continues to receive Decadron. He is receiving ceftriaxone for empiric antibiotic therapy. Vital signs remain hemodynamically stable. Heart rate is controlled at 60 bpm and regular. He he is receiving oral amiodarone. Objective - Vital Signs Vital signs: Vital Signs Temp 97.6 F 06/07/22 06:58 Pulse 75 06/07/22 09:25 Resp 17 06/07/22 09:25 BP 92/55 06/07/22 06:58 Pulse Ox 95 06/07/22 07:54 FiO2 Intake & Output 06/06/22 06/07/22 06/07/22 18:59 06:59 18:59 Output Total 1950 1100 410 Balance -1949 -1100 -410 Output: Urine 1949 1100 410 Other: Voiding Method Urinal Urinal Urinal # Bowel Movements 1 - Exam Gen. appearance the patient is sitting up in bed in no apparent distress. Head exam atraumatic and normocephalic Neck was supple and without jugular venous distension, thyromegaly, or carotid bruits. Carotids were easily palpable bilaterally. There was no adenopathy. Lungs sounds are clear and diminished bilaterally. No wheezes, rhonchi, crackles. On room air. No accessory some muscle use or conversational dyspnea noted. Heart Cardiac exam revealed the PMI to be normally situated and sized. Heart rhythm is regular, with normal S1-S2, no extra heart sounds noted. Heart rate 76 bpm There were no murmurs, rubs, clicks, or gallops. Abdominal exam revealed normal bowel sounds. The abdomen was soft, non-tender, and without masses, organomegaly, or appreciable enlargement of the abdominal aorta. Examination of the extremities revealed easily palpable radial, femoral and pedal pulses. There was no cyanosis, clubbing or edema. Examination of the skin revealed no evidence of significant rashes, petechia, purpura, or hematomas noted - Labs CBC & Chem 7: 06/07/22 04:52 06/06/22 08:24 Labs: Abnormal Lab Results - Last 24 Hours (Table) 06/07/22 06/07/22 Range/Units 04:52 04:52 WBC 23.49 H (4.50-10.00) X 10*3/uL RBC 2.43 L (4.40-5.60) X 10*6/uL Hgb 7.0 L (13.0-17.0) g/dL Hct 22.6 L (39.6-50.0) % MCHC 31.0 L (32.0-37.0) g/dL RDW 15.1 H (11.5-14.5) % Absolute Nucleated RBC 0.41 H (0.00-0.00) X 10*3/uL Metamyelocytes % 3 H (0-0) % Neutrophils # (Manual) 19.73 H (2.00-8.90) X 10*3/uL Monocytes # (Manual) 2.11 H (0.20-1.00) X 10*3/uL Eosinophils # (Manual) 0 L (0.04-0.35) X 10*3/uL NRBC/100 WBC Diff 1.7 H (0.0-0.0) /100 WBCS C-Reactive Protein 1.00 H (0.00-0.80) mg/dL Assessment and Plan Assessment: Acute Covid 19 infection. The patient has limited infiltration of the lung bas es bilaterally. Possibility of a Covid 19 pneumonia cannot be completely ruled out. The patient has received 2 shots of vaccination. He was receiving Molnupiravir on outpatient basis. Currently, he is receiving Decadron. He has completed his course of Remdesivir. Respiratory status is stable, and patient is on room air. Acute hypoxic respiratory failure, improving and the patient is currently on RA Acute atrial fibrillation with rapid ventricular response, converted into normal sinus rhythm Hypotension, responded to fluids, on no pressors, recovered Acute upper GI bleed, post EGD and post clipping of a duodenal bleeding ulcer on 06/05/2022. He also has duodenitis. Patient was taken aspirin and Plavix and nonsteroidal anti-inflammatory medication outpatient basis. Here in the hospital, he was receiving Eliquis for history of atrial fibrillation. Eliquis remains on hold, patient's hemoglobin continues to trend down, patient denies any further episodes of bloody bowel movements. Blood loss anemia and hemoglobin is down to 7 g/dL Acute kidney injury, , recovered Coronary artery disease with previous [place] and coronary stenting History of lupus ordered insertion Mild lactic acidosis, improved Mild elevation of pro calcitonin level at 0.14 Acute leukocytosis with a white cell count is improving Hyperlipidemia Hypertension Previous history of CVA, recovered without any residual deficits Plan: Patient's medications and labs reviewed Recommend rechecking hemoglobin tomorrow Anticoagulation is on hold Continue IV Protonix. Procalcitonin only mildly elevated at 0.14 continue empiric antibiotic therapy in the form of Rocephin The patient completed course of Remdesivir. Patient's respiratory status is stable, and he is on room air From a pulmonary standpoint, patient is cleared for discharge. I have personally seen and examined the patient, performed the documentation and the assessment and plan as written. Number of minutes spent on the visit: 10. Time with Patient: Less than 30
[2022-06-07 13:12] LABS: Basophils # (A) 0.1 k/uL (0-0.2); Basophils % (A) 1 %; Eosinophils % (A) 0 %; HCT 23.1 % (39.0-53.0); HGB 7.7 gm/dL (13.0-17.5); Hypochromasia Slight; Lymphocytes # (A) 2.4 k/uL (1.0-4.8); Lymphocytes % (A) 11 %; MCH 30.7 pg (25.0-35.0); MCHC 33.4 g/dL (31.0-37.0); MCV 91.8 fL (80.0-100.0); Monocytes # (A) 1.3 k/uL (0-1.0); Monocytes % (A) 6 %; Neutrophils # (A) 18.2 k/uL (1.3-7.7); Neutrophils % (A) 82 %; Platelet Count 211 k/uL (150-450); RBC 2.51 m/uL (4.30-5.90); RDW 15.9 % (11.5-15.5); WBC 22.2 k/uL (3.8-10.6)
[2022-06-07] MEDS: FERROUS SULFATE 325 MG TAB PO SCH ×2 (13:14→16:59)
--- NOTE | 2022-06-07 14:06 | P.PN ---
Subjective Progress Note Date: 06/07/22 CHIEF COMPLAINT: Bleeding duodenal ulcer HISTORY OF PRESENT ILLNESS: Patient is status post EGD with clipping of bleeding duodenal ulcer. Patient did have a small black stool with clots. Denies any abdominal pain. Denies any nausea or vomiting. Patient did have some hypotension during the night. BP is better this morning. WBC 22 hemoglobin this morning 7. 0 repeat hemoglobin 7.7 platelets 211 PHYSICAL EXAM: VITAL SIGNS: Reviewed. GENERAL: Well-developed in no acute distress. HEENT: No sclera icterus. Extraocular movements grossly intact. Moist buccal mucosa. Head is atraumatic, normocephalic. ABDOMEN: Soft. Nondistended. Nontender. NEUROLOGIC: Alert and oriented. Cranial nerves II through XII grossly intact. ASSESSMENT: 1. Acute GI bleed with bleeding duodenal ulcer status post EGD with clipping PLAN: -Continue to monitor hemoglobin -Continue PPI -Continue clear liquid diet -Continue to hold anticoagulation Physician Butcher'S Assistant note has been reviewed by physician. Signing provider agrees with the documented findings, assessment, and plan of care. I have personally seen and examined the patient, reviewed the MANUFACTURING WEAVER /PAs history, exam and MDM and agree with the assessment and plan as written. Based on total visit time, I have performed more than 50% of the visit. As above: Patient's hemoglobin today 7.7. He did have a small hard melanotic stool last night. I suspect this is old blood. Continue to follow. Continue antiacid therapy. Advance diet. Objective - Vital Signs Vital signs: Vital Signs Temp 98.1 F 06/07/22 14:00 Pulse 71 06/07/22 14:00 Resp 16 06/07/22 14:00 BP 108/65 06/07/22 14:00 Pulse Ox 95 06/07/22 07:54 FiO2 Intake & Output 06/06/22 06/07/22 06/07/22 18:59 06:59 18:59 Intake Total 0 Output Total 1949 1100 410 Balance -1949 Intake: Blood Product 0 Unit 0 Output: Urine 1949 1100 410 Other: Voiding Method Urinal Urinal Urinal # Bowel Movements 1 - Labs CBC & Chem 7: 06/07/22 11:43 06/06/22 08:24 Labs: Abnormal Lab Results - Last 24 Hours (Table) 06/05/22 06/07/22 06/07/22 Range/Units 11:45 04:52 04:52 WBC 23.49 H (4.50-10.00) X 10*3/uL RBC 2.43 L (4.40-5.60) X 10*6/uL Hgb 7.0 L (13.0-17.0) g/dL Hct 22.6 L (39.6-50.0) % MCHC 31.0 L (32.0-37.0) g/dL RDW 15.1 H (11.5-14.5) % Absolute Nucleated RBC 0.41 H (0.00-0.00) X 10*3/uL Metamyelocytes % 3 H (0-0) % Neutrophils # (1.3-7.7) k/uL Neutrophils # (Manual) 19.73 H (2.00-8.90) X 10*3/uL Monocytes # (0-1.0) k/uL Monocytes # (Manual) 2.11 H (0.20-1.00) X 10*3/uL Eosinophils # (Manual) 0 L (0.04-0.35) X 10*3/uL NRBC/100 WBC Diff 1.7 H (0.0-0.0) /100 WBCS C-Reactive Protein 1.00 H (0.00-0.80) mg/dL Crossmatch See Detail 06/07/22 Range/Units 11:43 WBC 22.2 H (4.50-10.00) X 10*3/uL RBC 2.51 L (4.40-5.60) X 10*6/uL Hgb 7.7 L (13.0-17.0) g/dL Hct 23.1 L (39.6-50.0) % MCHC (32.0-37.0) g/dL RDW 15.9 H (11.5-14.5) % Absolute Nucleated RBC (0.00-0.00) X 10*3/uL Metamyelocytes % (0-0) % Neutrophils # 18.2 H (1.3-7.7) k/uL Neutrophils # (Manual) (2.00-8.90) X 10*3/uL Monocytes # 1.3 H (0-1.0) k/uL Monocytes # (Manual) (0.20-1.00) X 10*3/uL Eosinophils # (Manual) (0.04-0.35) X 10*3/uL NRBC/100 WBC Diff (0.0-0.0) /100 WBCS C-Reactive Protein (0.00-0.80) mg/dL Crossmatch
--- NOTE | 2022-06-07 21:27 | P.PN ---
Subjective Progress Note Date: 06/07/22 Principal diagnosis: Covid 19 Pneumonia Patient is a 62-year-old male with a past medical history significant for coronary disease CVA TIA former smoker presenting to the ER this morning for evaluation of generalized weakness not feeling well symptom has been going on f or the last few days, patient has been diagnosed with covid 19 pneumonia. On today's evaluation that is 06/07/2022, the patient remains to be afebrile, the patient is breathing comfortably on room air, the patient denies chest pain, the patient did have occasional dry cough no nausea no vomiting no abdominal pain no diarrhea Objective - Vital Signs Vital signs: Vital Signs Temp 97.6 F 06/07/22 06:58 Pulse 75 06/07/22 09:25 Resp 17 06/07/22 09:25 BP 92/55 06/07/22 06:58 Pulse Ox 95 06/07/22 07:54 FiO2 Intake & Output 06/06/22 06/07/22 06/07/22 18:59 06:59 18:59 Output Total 1950 1100 410 Balance -19491100 -410 Output: Urine 1950 1100 410 Other: Voiding Method Urinal Urinal Urinal # Bowel Movements 1 - Exam GENERAL DESCRIPTION: Middle-aged male lying in bed in no distress RESPIRATORY SYSTEM: Unlabored breathing , decreased intensity of breath sounds , no wheeze HEART: S1 S2 regular rate and rhythm , ABDOMEN: Soft , no tenderness EXTREMITIES: No edema feet - Labs CBC & Chem 7: 06/07/22 11:43 06/06/22 08:24 Labs: Abnormal Lab Results - Last 24 Hours (Table) 06/05/22 06/07/22 06/07/22 Range/Units 11:45 04:52 04:52 WBC 23.49 H (4.50-10.00) X 10*3/uL RBC 2.43 L (4.40-5.60) X 10*6/uL Hgb 7.0 L (13.0-17.0) g/dL Hct 22.6 L (39.6-50.0) % MCHC 31.0 L (32.0-37.0) g/dL RDW 15.1 H (11.5-14.5) % Absolute Nucleated RBC 0.41 H (0.00-0.00) X 10*3/uL Metamyelocytes % 3 H (0-0) % Neutrophils # (Manual) 19.73 H (2.00-8.90) X 10*3/uL Monocytes # (Manual) 2.11 H (0.20-1.00) X 10*3/uL Eosinophils # (Manual) 0 L (0.04-0.35) X 10*3/uL NRBC/100 WBC Diff 1.7 H (0.0-0.0) /100 WBCS C-Reactive Protein 1.00 H (0.00-0.80) mg/dL Crossmatch See Detail Assessment and Plan (1) Coronavirus infection Current Visit: Yes Status: Acute Code(s): B34.2 - CORONAVIRUS INFECTION, UNSPECIFIED SNOMED Code(s): 588568882 Plan: 1patient presented to hospital with generalized weakness which is likely multifactorial in this patient with a likely component of dehydration with elevated BUN/creatinine and a component of COVID-19 pneumonia, however the patient is not running any fever and chest x-ray repeated 06/02/2022 is showing bibasilar infiltrate, patient did have a completion of A. fib with RVR and worsening respiratory status requiring transfer to the ICU on 06/03/2022, patient was subsequently stabilized and has been moved out of the ICU on 01/16/2023 2patient is slowly clinically improving, patient currently being treated with the Lovenox and ascorbic acid and dexamethasone, patient has completed 5 day course of Remdisivir as of 06/06/2022 and monitor his clinical course closely Time with Patient: Less than 30
[2022-06-07] MEDS: lisinopriL 20 MG TAB PO SCH (21:52)
[2022-06-07] MEDS: ATORVASTATIN 40 MG TAB PO SCH (21:52)
[2022-06-08] MEDS: SODIUM CHLORIDE 0.9% 1,000 ML IV SCH (05:53)
[2022-06-08] MEDS: FERROUS SULFATE 325 MG TAB PO SCH ×2 (06:34→10:18)
[2022-06-08] MEDS: DEXAMETHASONE SOD PHOSPHATE 10 MG/ML 1 ML VIAL IV SCH (08:19)
[2022-06-08] MEDS: PANTOPRAZOLE 40 MG/10 ML VIAL IVP SCH ×2 (08:19→20:54)
[2022-06-08 08:55] LABS: HCT 25.1 % (39.6-50.0); MCH 29.5 pg (27.0-32.0); MCHC 31.9 g/dL (32.0-37.0); MCV 92.6 fL (80.0-97.0); Mean Platelet Volume 10.6 fL (9.5-12.2); NRBC Per 100 WBC 1.9 /100 WBCS (0.0-0.0); Platelet Count 216 X 10*3/uL (140-440); RBC 2.71 X 10*6/uL (4.40-5.60); RDW 16.3 % (11.5-14.5); WBC 23.03 X 10*3/uL (4.50-10.00)
[2022-06-08 09:21] LABS: Anion Gap 5.7 mmol/L (10.00-18.00); BUN/Creat Ratio 29.13 Ratio (12.00-20.00); Blood Urea Nitrogen 23.3 mg/dL (9.0-27.0); Calcium 7.8 mg/dL (8.7-10.3); Carbon Dioxide 25.3 mmol/L (20.0-27.5); Non-African American GFR(CKD) 95.7 (60.0-200.0); Potassium 4.6 mmol/L (3.5-5.5)
[2022-06-08 10:02] LABS: Basophils # (M) 0 X 10*3/uL (0.00-0.10); Eosinophils # (M) 0 X 10*3/uL (0.04-0.35); Lymphocytes # (M) 2.07 X 10*3/uL (0.90-5.00); Metamyelocytes % 3 % (0-0); Monocytes # (M) 1.61 X 10*3/uL (0.20-1.00); Neutrophils # (M) 18.65 X 10*3/uL (2.00-8.90); Neutrophils % (M) 81 %
[2022-06-08] MEDS: AMIODARONE 200 MG TAB PO SCH ×2 (10:18→20:54)
[2022-06-08] MEDS: ASCORBIC ACID 500 MG TAB PO SCH (10:19)
[2022-06-08] MEDS: ZINC SULFATE 220 MG CAP PO SCH (10:19)
[2022-06-08] MEDS: MULTIVITAMINS, THERA 1 EACH TAB PO SCH (10:19)
[2022-06-08] MEDS: METOPROLOL TARTRATE 25 MG TAB PO SCH ×2 (10:19→20:54)
[2022-06-08] MEDS: FAMOTIDINE 20 MG TAB PO SCH ×2 (10:19→20:54)
--- NOTE | 2022-06-08 12:15 | P.PN ---
Subjective 62-year-old male with a past medical history significant for coronary disease CVA TIA former smoker presenting to the ER this morning for evaluation of generalized weakness not feeling well symptom has been going on for the last few days and apparently got worse overnight for the patient presented to hospital patient mention he did have no strength and has been feeling weak all over no energy patient did have some nausea but no vomiting no abdominal pain did have some diarrhea patient also complaining of shortness of breath on minim al exertion even at rest he did have a cough mild to moderate intensity mostly dry in nature with the symptoms the patient has been evaluated by ER physician on arrival to the ER the patient was afebrile and no fever has been recorded subsequently patient did have elevated lactic acid his white count is normal BUN/creatinine mildly elevated liver enzymes are normal COVID test came back positive RSV influenza was negative patient did have a chest x-ray 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 patient to continue with the Lovenox and ascorbic acid and dexamethasone however we will add Remdisivir for possible worsening of his underlying covid 19 pneumonia - We will give one-time dose of Lasix 20 mg IV 1 06/03/2022 Patient today was in the ICU in the morning with worsening respiratory distress, he was on 15 L/m of oxygen, also blood pressure was on the low side with systolic in the 90s with creatinine went up to 1.6 and today went down to 1.3. Also patient developed A. fib and RVR which contributed also to his hypotension, eventually patient able with by cardiology and pulmonary/critical care team and he was placed on small doses of pressors of Levophed, also I was started on normal saline 75 mL/h we'll close monitoring of blood pressure in the ICU. Cardizem drip which was started already switched to amiodarone drip and also he is on therapeutic dose of Lovenox for his A. fib and RVR Patient also respiratory status started improving and in the evening his oxygen requirements down to 7 L/m while he continues on treatment for his Covid infection with IV Decadron and remdisivir, Other than that labs showing leukocytosis while he is on steroids, creatinine improving. CRP slightly lower while LDH is normal. Distal tachypneic. Ultrasound of the neck is negative for DVT Echocardiogram showing ejection fraction of 45-50% with severe LVH Chest x-ray showing bibasilar infiltrates. Potential stone and is only mildly elevated at 0.13 however patient was placed on Zithromax 3 days. 06/07/2022 Patient's was admitted initially with a lateral Covid pneumonia and he finishes treatment with remdisivir , is saturating well with minimal tachypnea, His hospital course was completed with A. fib, rate is controlled now on metoprolol as well as amiodarone, shoe puller on the case, was on Lovenox 100 mg twice a day which was stopped because of a drop of his hemoglobin. He status post EGD and clipping of his bleeding duodenal ulcer. Last night he passed clots in his stool, he was hypotensive with blood pressure as low as 69/35, currently blood pressure 92/55. Patient denies chest pain or dyspnea but he feels weak. Hemoglobin dropped to 8.4.7.0. We going to give 1 unit of blood transfusion, 3 days ago on 06/04 hemoglobin was about 14. Discussed with the staff to give 1 units of blood per protocol after risks and benefits explained for the patient Continue with Protonix with increased frequency to twice a day. Also on Pepcid. Also I metoprolol 25 twice a day, low-dose of lisinopril 40 mg down to 20 mg tonight we will keep monitoring hemoglobin, also creatinine and electrolytes and vitals 06/08/2022 Patient clinically doing well, is fully awake and oriented, patient denies any other new symptoms. He denies abdominal pain. He had bowel movement today but he wasn't sure about the color, he did not notice any blood. Vital signs stable, blood pressure is still low normal systolic 90s to 100, lisinopril was lowered yesterday also responded to monitor blood transfusion, blood pressure improvement compared to yesterday. Lovenox recommended by shoe puller for a new A. fib still on hold. Aspirin & Plavix are also on hold Patient remains on Decadron, ceftriaxone,, multiple vitamins discontinue normal saline 75 mL/h and monitor blood pressure closely Objective - Vital Signs Vital signs: Vital Signs Temp 97.9 F 06/08/22 07:28 Pulse 72 06/08/22 07:28 Resp 18 06/08/22 07:28 BP 100/65 06/08/22 07:28 Pulse Ox 95 06/08/22 07:28 FiO2 Intake & Output 06/07/22 06/08/22 06/08/22 18:59 06:59 18:59 Intake Total 1335 Output Total 1310 2100 250 Balance 25 -2100 -250 Intake: IV 675 Sodium Chloride 0.9% 1, 675 000 ml @ 75 mls/hr IV . [id number] Rx#:[id number] Intake, IV Titration 50 Amount cefTRIAXone 1 gm In 50 Sodium Chloride 0.9% 50 ml @ 100 mls/hr IVPB Q24HR [facility] Rx#:[id number] Blood Product 610 Rc As-1 Unit 310 [id number] Output: Urine 1310 2100 250 Other: Voiding Method Urinal Urinal # Bowel Movements 1 - Exam GENERAL: The patient is alert and oriented x3, not in any acute distress. Well developed, well nourished. HEENT: Pupils are round and equally reacting to light. EOMI. No scleral icterus. No conjunctival pallor. Normocephalic, atraumatic. No pharyngeal erythema. No thyromegaly. CARDIOVASCULAR: S1 and S2 present. No murmurs, rubs, or gallops. -PULMONARY: Chest is clear to auscultation, no wheezing or bilateral scattered crepitation, improving ABDOMEN: Soft, nontender, nondistended, normoactive bowel sounds. No palpable organomegaly. MUSCULOSKELETAL: No joint swelling or deformity. EXTREMITIES: No cyanosis, clubbing, or pedal edema. NEUROLOGICAL: Gross neurological examination did not reveal any focal deficits. SKIN: No rashes. no petechiae. - Labs CBC & Chem 7: 06/08/22 05:46 06/08/22 05:46 Labs: Abnormal Lab Results - Last 24 Hours (Table) 06/05/22 06/07/22 06/08/22 Range/Units 11:45 11:43 05:46 WBC 22.2 H 23.03 H (3.8-10.6) k/uL RBC 2.51 L 2.71 L (4.30-5.90) m/uL Hgb 7.7 L 8.0 L (13.0-17.5) gm/dL Hct 23.1 L 25.1 L (39.0-53.0) % MCHC 31.9 L (32.0-37.0) g/dL RDW 15.9 H 16.3 H (11.5-15.5) % Absolute Nucleated RBC 0.44 H (0.00-0.00) X 10*3/uL Metamyelocytes % 3 H (0-0) % Neutrophils # 18.2 H (1.3-7.7) k/uL Neutrophils # (Manual) 18.65 H (2.00-8.90) X 10*3/uL Monocytes # 1.3 H (0-1.0) k/uL Monocytes # (Manual) 1.61 H (0.20-1.00) X 10*3/uL Eosinophils # (Manual) 0 L (0.04-0.35) X 10*3/uL NRBC/100 WBC Diff 1.9 H (0.0-0.0) /100 WBCS Anion Gap (10.00-18.00) mmol/L BUN/Creatinine Ratio (12.00-20.00) Ratio Glucose (70-110) mg/dL Calcium (8.7-10.3) mg/dL Crossmatch See Detail 06/08/22 Range/Units 05:46 WBC (3.8-10.6) k/uL RBC (4.30-5.90) m/uL Hgb (13.0-17.5) gm/dL Hct (39.0-53.0) % MCHC (32.0-37.0) g/dL RDW (11.5-15.5) % Absolute Nucleated RBC (0.00-0.00) X 10*3/uL Metamyelocytes % (0-0) % Neutrophils # (1.3-7.7) k/uL Neutrophils # (Manual) (2.00-8.90) X 10*3/uL Monocytes # (0-1.0) k/uL Monocytes # (Manual) (0.20-1.00) X 10*3/uL Eosinophils # (Manual) (0.04-0.35) X 10*3/uL NRBC/100 WBC Diff (0.0-0.0) /100 WBCS Anion Gap 5.70 L (10.00-18.00) mmol/L BUN/Creatinine Ratio 29.13 H (12.00-20.00) Ratio Glucose 114 H (70-110) mg/dL Calcium 7.8 L (8.7-10.3) mg/dL Crossmatch Assessment and Plan Assessment: Bleeding duodenal ulcer status post EGD and clipping on 06/05 Acute blood loss anemia status post units of blood transfusion 06/07 Hypertension secondary to above Bilateral Covid pneumonia Acute hypoxic respiratory failure Increased inflammatory markers New-onset A. fib and RVR Acute kidney injury, improved Leukocytosis Plan: Give one unit of blood Continue with dexamethasone Continue with vitamin C, vitamin D and zinc Continue with normal saline continue with amiodarone and metoprolol Lower dose of lisinopril Surgery team on the case Pulmonary consult Continue holding aspirin and Plavix Infectious disease consult Cardiology consult Labs and medication were reviewed.. Continue same treatment. Continue with symptomatic treatment. Resume home medication. Monitor lytes and vitals. DVT and GI prophylaxis. Further recommendations as per clinical course of the patient DVT prophylaxis: Subcutaneous Lovenox GI Prophylaxis: Pepcid Prognosis is guarded
[2022-06-08 12:35] VITALS: BMI 34.0
--- NOTE | 2022-06-08 13:15 | P.PN ---
Subjective Progress Note Date: 06/08/22 Principal diagnosis: COVID-19, Atrial fibrillation RVR, GI bleeding 62-year-old male patient of the transferred to the intensive care unit yesterday evening for transfusion yesterday a chest fibrillation and rapid ventricular response. Noted the patient was hospitalized on 06/01/2022 for generalized weakness and Covid 19 infection. He is known to have coronary artery disease, previous CVA, and hyperlipidemia. Noted the patient came into the hospital and he was already receiving MOlnipiravir for Covid 19 infection on outpatient basis. He was initially on 2 L of oxygen by nasal cannula, admission. His chest x-ray showed some limited bibasilar pulmonary infiltration without any clear airspace disease of consolidation. And with the ongoing into fibrillation RVR, the patient became more hypoxic and currently is on 15 L high flow oxygen. In terms of his atrial fibrillation, the patient remains in A. fib RVR. Overnight, he was given Cardizem which essentially dropped his pressure to 80/60 and following that, the Cardizem drip was discontinued and the patient was given 1 L bolus, Lopressor bolus, and later on switched to amiodarone per protocol. He was given a bolus of amiodarone 150 mg and currently is on amiodarone at 0.5 g milligrams per minutes. He is also on anticoagulations those has been modified from a prophylactic dose to therapeutic dose of 100 mg subcu every 12 hours. No previous echocardiogram and an echocardiogram will be obtained today. In terms of his Covid 19 infection, the patient was started on Decadron and is currently receiving Decadron 6 mg IV every 24 hours. He is also on Remdesivir per protocol. The patient is also on IV fluids with normal saline at the rate of 20 mL an hour. Blood work from today shows WBC count of 27.2 with a hemoglobin of 16.1 and a platelet count of 113. Note that his pro calcitonin level at time of admission was 0.14. His CRP level was at 3.5. His lactic acid was at 2.6 and dropped down to 1.8 and currently is at 2.2. Awaiting follow-up labs from today. Noted the patient had an acute kidney injury and the creatinine was up to 1.6 from yesterday with a BUN of 44 and a serum bicarb of 18 and his sodium level of 133. His potassium level is at 4.6. Noted during this current admission, the patient received a total of 3 L of IV fluid boluses in the form of normal saline. On 06/04/2022, the patient is being seen in follow-up in intensive care unit. This morning, the patient is on 4 L of oxygen by nasal cannula and his overall respiratory status is improved considerably. Noted the patient got transferred to the intensive care unit and the patient was having a chest fibrillation with RVR. The patient was given various treatments and ultimately was switched amiodarone and he was loaded and maintained and he was receiving a dose of 1 mg/m. He did convert at around 3 PM yesterday afternoon into normal sinus rhythm. He is normotensive for now. No hypotension. Oxygen is improved and the patient is down to 4 L of O2 nasal cannula. Meanwhile, he is also Covid positive and he is receiving a combination of Decadron and Remdesivir care protocol. In terms of his echocardiogram, the patient was found to have a left ventricular ejection fraction of 45-50%. He had severe increase in septal wall thickness and mild mitral regurgitation. His pro calcitonin was elevated. His white cell count was also elevated at 27.2. Based on that, the patient was also given broad-spectrum antibiotic coverage and he was given a combination of Rocephin and Zithromax. In terms of his inflammatory markers, his LDH level was 520, CRP level was at 3.1. A repeat chest x-ray from today from today has been essentially stable with some limited infiltration of the lung bases. Meanwhile, the Doppler of the lower extremity was negative for DVT. The patient is currently on anticoagulants and he is receiving Lovenox 100 mg subcu injections every 12 hours. Is 06/05/2022, the patient is on 2 L of oxygen by nasal cannula. His cardiac rhythm remained sinus. History receiving treatment for Covid 19 infection. As his condition was improving, yesterday at around 9 PM, patient started having episodes of GI bleed. The patient had a large melanotic stools and he had several episodes of GI bleed throughout the night probably a total of 7. At that point, general surgery was consulted. Anticoagulations was placed on hold. Note that the patient received a combination of Lovenox initially and later on Eliquis regarding his atrial fibrillation. No known history of any peptic ulcer disease. Hemoglobin from this morning is down to 11.2 from a baseline of 16.4 at time of admission. Rest of the electrolytes are still pending for now. The patient was started on IV Protonix. Anticoagulations was placed on hold. Despite this GI bleed, the patient remains hemodynamically stable. No significant tachycardia. No abdominal pain. No nausea. No hematemesis. Repeat chest x-ray was done today and it shows no acute process. No significant change from the earlier chest x-ray. Some limited infiltration left lung base otherwise, the chest x-ray is essentially clear. For now, the patient is nothing by mouth. On 06/06/2022, the patient is currently in the intensive care unit. No active bleeding. He is on room air oxygen. The active issue for now for yesterday was the GI bleed. The patient underwent an EGD and the patient was found to have duodenal ulcer with evidence of bleeding and he also had duodenitis, gastritis and small hiatal hernia. EGD was completed with placement of a clip and control of bleeding and hemostasis was achieved. Since then, the patient has not had any further episodes of bleeding. Most recent hemoglobin from yesterday was 9.5. Repeat hemoglobin is pending for now. This morning, his calm and comfortable. He remains nothing by mouth. Remains on normal saline at rate of 75 mL an hour. Urine output is adequate. No significant shortness of breath. No fever or chills. echoes down to 20.5. Renal function is stable. He r emains on Decadron 6 mg IV every 24 hours and he is completing his course of REMdesivir. His cardiac rhythm is sinus. He is on amiodarone. He is also metoprolol. No anticoagulants for now. Evaluating this patient today on 06/07/2022 on a general medical floor. Patient is sitting up in bed, on room air, in no apparent distress. Patient denies shortness of breath, fevers overnight. Patient continues to deny any more episodes of bloody bowel movements overnight. Denies hematemeiss, abdominal pain. Patient is postoperative day #2 EGD and clipping. No new chest x-ray to review today. Patient's hemoglobin continues to trend down, but has not required any blood transfusions. His CBC from today shows WBC count of 23.5, hemoglobin 7, hematocrit 22.6, platelets 191,000. No new chemistry to review today. Patient has completed his course of remdesivir for Covid 19 infection. He is receiving normal saline at 75 mL per hour. He is receiving Protonix for GI prophylaxis, and DVT prophylaxis is on hold. He continues to receive Decadron. He is receiving ceftriaxone for empiric antibiotic therapy. Vital signs remain hemodynamically stable. Heart rate is controlled at 60 bpm and regular. He he is receiving oral amiodarone. I'm reevaluating this patient today on 06/08/2022 on a general medical floor. He is sitting up in bed, on room air, in no apparent distress. He has a walker at the bedside. Patient denies any fevers overnight. Patient denies any more bloody bowel movements, hematemesis, abdominal pain. He is postoperative day #3 from an EGD and clipping. Patient did receive 1 unit of PRBCs yesterday for hemoglobin of 7. He is asymptomatic. Hemoglobin from today is up to 8 g/dL, hematocrit 25.1, WBC is 23, platelets 216,000. BMP from today is stable with a sodium of 135, potassium 4.6, chloride 104, serum CO2 25, BUN 23.3, creatinine 0.8, glucose 114. No new chest x-ray to review today. Patient continues on empiric Rocephin. Normal saline at 70 mL per hour. Vital signs remain stable. Objective - Vital Signs Vital signs: Vital Signs Temp 97.9 F 06/08/22 07:28 Pulse 72 06/08/22 07:28 Resp 18 06/08/22 07:28 BP 100/65 06/08/22 07:28 Pulse Ox 95 06/08/22 07:28 FiO2 Intake & Output 06/07/22 06/08/22 06/08/22 18:59 06:59 18:59 Intake Total 1335 Output Total 1310 2100 250 Balance 25 -250 Weight 107.6 kg Intake: IV 675 Sodium Chloride 0.9% 1, 675 000 ml @ 75 mls/hr IV . [id number] [facility] Rx#:[id number] Intake, IV Titration 50 Amount cefTRIAXone 1 gm In 50 Sodium Chloride 0.9% 50 ml @ 100 mls/hr IVPB Q24HR [facility] Rx#:[id number] Blood Product 610 Rc As-1 Unit 310 [id number] Output: Urine 1310 2100 250 Other: Voiding Method Urinal Urinal # Bowel Movements 1 - Exam Gen. appearance the patient is sitting up in bed in no apparent distress. Head exam atraumatic and normocephalic Neck was supple and without jugular venous distension, thyromegaly, or carotid bruits. Carotids were easily palpable bilaterally. There was no adenopathy. Lungs sounds are clear and diminished bilaterally. No wheezes, rhonchi, crackles. On room air. No accessory some muscle use or conversational dyspnea noted. Heart Cardiac exam revealed the PMI to be normally situated and sized. Heart rhythm is regular, with normal S1-S2, no extra heart sounds noted. Heart rate 72 bpm There were no murmurs, rubs, clicks, or gallops. Abdominal exam revealed normal bowel sounds. The abdomen was soft, non-tender, and without masses, organomegaly, or appreciable enlargement of the abdominal aorta. Examination of the extremities revealed easily palpable radial, femoral and pedal pulses. There was no cyanosis, clubbing or edema. Examination of the skin revealed no evidence of significant rashes, petechia, purpura, or hematomas noted - Labs CBC & Chem 7: 06/08/22 05:46 06/08/22 05:46 Labs: Abnormal Lab Results - Last 24 Hours (Table) 06/05/22 06/07/22 06/08/22 Range/Units 11:45 11:43 05:46 WBC 22.2 H 23.03 H (3.8-10.6) k/uL RBC 2.51 L 2.71 L (4.30-5.90) m/uL Hgb 7.7 L 8.0 L (13.0-17.5) gm/dL Hct 23.1 L 25.1 L (39.0-53.0) % MCHC 31.9 L (32.0-37.0) g/dL RDW 15.9 H 16.3 H (11.5-15.5) % Absolute Nucleated RBC 0.44 H (0.00-0.00) X 10*3/uL Metamyelocytes % 3 H (0-0) % Neutrophils # 18.2 H (1.3-7.7) k/uL Neutrophils # (Manual) 18.65 H (2.00-8.90) X 10*3/uL Monocytes # 1.3 H (0-1.0) k/uL Monocytes # (Manual) 1.61 H (0.20-1.00) X 10*3/uL Eosinophils # (Manual) 0 L (0.04-0.35) X 10*3/uL NRBC/100 WBC Diff 1.9 H (0.0-0.0) /100 WBCS Anion Gap (10.00-18.00) mmol/L BUN/Creatinine Ratio (12.00-20.00) Ratio Glucose (70-110) mg/dL Calcium (8.7-10.3) mg/dL Crossmatch See Detail 06/08/22 Range/Units 05:46 WBC (3.8-10.6) k/uL RBC (4.30-5.90) m/uL Hgb (13.0-17.5) gm/dL Hct (39.0-53.0) % MCHC (32.0-37.0) g/dL RDW (11.5-15.5) % Absolute Nucleated RBC (0.00-0.00) X 10*3/uL Metamyelocytes % (0-0) % Neutrophils # (1.3-7.7) k/uL Neutrophils # (Manual) (2.00-8.90) X 10*3/uL Monocytes # (0-1.0) k/uL Monocytes # (Manual) (0.20-1.00) X 10*3/uL Eosinophils # (Manual) (0.04-0.35) X 10*3/uL NRBC/100 WBC Diff (0.0-0.0) /100 WBCS Anion Gap 5.70 L (10.00-18.00) mmol/L BUN/Creatinine Ratio 29.13 H (12.00-20.00) Ratio Glucose 114 H (70-110) mg/dL Calcium 7.8 L (8.7-10.3) mg/dL Crossmatch Assessment and Plan Assessment: Acute Covid 19 infection. The patient has limited infiltration of the lung bases bilaterally. Possibility of a Covid 19 pneumonia cannot be completely ruled out. The patient has received 2 shots of vaccination. He was receiving Molnupiravir on outpatient basis. Currently, he is receiving Decadron. He has completed his course of Remdesivir. Respiratory status is stable, and patient is on room air. Acute hypoxic respiratory failure, improving and the patient is currently on RA Acute atrial fibrillation with rapid ventricular response, converted into normal sinus rhythm Hypotension, responded to fluids, on no pressors, recovered Acute upper GI bleed, post EGD and post clipping of a duodenal bleeding ulcer on 06/05/2022. He also has duodenitis. Patient was taken aspirin and Plavix and nonsteroidal anti-inflammatory medication outpatient basis. Here in the hospital, he was receiving Eliquis for history of atrial fibrillation. Eliquis remains on hold, patient's hemoglobin continues to trend down, patient denies any further episodes of bloody bowel movements. Blood loss anemia. He received 1 unit of PRBCs on June 07 for hemoglobin of 7gm/dl. hemoglobin today is up to 8 grams per deciliter Acute kidney injury, , recovered Coronary artery disease with previous VA and coronary stenting History of lupus ordered insertion Mild lactic acidosis, improved Mild elevation of procalcitonin level at 0.14 Acute leukocytosis with a white cell count is improving Hyperlipidemia Hypertension Previous history of CVA, recovered without any residual deficits. Plan: Patient's medications and labs reviewed No further bleeding and hemoglobin is up to 8 grams per deciliter after 1 unit PRBC Anticoagulation is on hold Continue IV Protonix. Procalcitonin only mildly elevated at 0.14 continue empiric antibiotic therapy in the form of Rocephin The patient completed course of Remdesivir. Patient's respiratory status is stable, and he is on room air From a pulmonary standpoint, patient is cleared for discharge. I have personally seen and examined the patient, performed the documentation and the assessment and plan as written. Number of minutes spent on the visit: 10. Time with Patient: Less than 30
--- NOTE | 2022-06-08 15:04 | P.PN ---
Subjective Progress Note Date: 06/08/22 CHIEF COMPLAINT: Bleeding duodenal ulcer HISTORY OF PRESENT ILLNESS: Patient is status post EGD with clipping of bleeding duodenal ulcer. Patient had 2 black bowel movements yesterday. No bowel movement reported today. He is status post 1 unit of blood for hemoglobin of 7.0. Denies any abdominal pain. Hypotension improved. Hgb is up from 7.7-8.0. Sodium 135 potassium 4.6 creatinine 0.8 PHYSICAL EXAM: VITAL SIGNS: Reviewed. GENERAL: Well-developed in no acute distress. HEENT: No sclera icterus. Extraocular movements grossly intact. Moist buccal mucosa. Head is atraumatic, normocephalic. ABDOMEN: Soft. Nondistended. Nontender. NEUROLOGIC: Alert and oriented. Cranial nerves II through XII grossly intact. ASSESSMENT: 1. Acute GI bleed with bleeding duodenal ulcer status post EGD with clipping PLAN: -Advance diet to full liquid -Continue to monitor hemoglobin -Continue PPI -Continue to hold anticoagulation Physician Dishwashing Machine Repairer note has been reviewed by physician. Signing provider agrees with the documented findings, assessment, and plan of care. I have personally seen and examined the patient, reviewed the ACCOUNTING RECONCILIATION CLERK /PAs history, exam and MDM and agree with the assessment and plan as written. Based on total visit time, I have performed more than 50% of the visit. As above: Patient is doing better today. Agree with advancing diet. Continue antiacids. Continue hold anticoagulation. Objective - Vital Signs Vital signs: Vital Signs Temp 97.6 F 06/08/22 13:31 Pulse 71 06/08/22 13:31 Resp 18 06/08/22 13:31 BP 112/69 06/08/22 13:31 Pulse Ox 99 06/08/22 13:31 FiO2 Intake & Output 06/07/22 06/08/22 06/08/22 18:59 06:59 18:59 Intake Total 1335 Output Total 1310 2100 250 Balance 25 -2100 -250 Weight 107.6 kg Intake: IV 675 Sodium Chloride 0.9% 1, 675 000 ml @ 75 mls/hr IV . [id number] [facility] Rx#:[id number] Intake, IV Titration 50 Amount cefTRIAXone 1 gm In 50 Sodium Chloride 0.9% 50 ml @ 100 mls/hr IVPB Q24HR [facility] Rx#:[id number] Blood Product 610 Rc As-1 Unit 310 [id number] Output: Urine 1310 2100 250 Other: Voiding Method Urinal Urinal # Bowel Movements 1 - Labs CBC & Chem 7: 06/08/22 05:46 06/08/22 05:46 Labs: Abnormal Lab Results - Last 24 Hours (Table) 06/05/22 06/08/22 06/08/22 Range/Units 11:45 05:46 05:46 WBC 23.03 H (4.50-10.00) X 10*3/uL RBC 2.71 L (4.40-5.60) X 10*6/uL Hgb 8.0 L (13.0-17.0) g/dL Hct 25.1 L (39.6-50.0) % MCHC 31.9 L (32.0-37.0) g/dL RDW 16.3 H (11.5-14.5) % Absolute Nucleated RBC 0.44 H (0.00-0.00) X 10*3/uL Metamyelocytes % 3 H (0-0) % Neutrophils # (Manual) 18.65 H (2.00-8.90) X 10*3/uL Monocytes # (Manual) 1.61 H (0.20-1.00) X 10*3/uL Eosinophils # (Manual) 0 L (0.04-0.35) X 10*3/uL NRBC/100 WBC Diff 1.9 H (0.0-0.0) /100 WBCS Anion Gap 5.70 L (10.00-18.00) mmol/L BUN/Creatinine Ratio 29.13 H (12.00-20.00) Ratio Glucose 114 H (70-110) mg/dL Calcium 7.8 L (8.7-10.3) mg/dL Crossmatch See Detail
[2022-06-08] MEDS: ACETAMINOPHEN TAB 325 MG TAB PO PRN (19:27)
[2022-06-08] MEDS: lisinopriL 20 MG TAB PO SCH (20:54)
[2022-06-08] MEDS: ATORVASTATIN 40 MG TAB PO SCH (20:54)
--- NOTE | 2022-06-08 21:55 | P.PN ---
Subjective Progress Note Date: 06/08/22 Principal diagnosis: Covid 19 Pneumonia Patient is a 62-year-old male with a past medical history significant for coronary disease CVA TIA former smoker presenting to the ER this morning for evaluation of generalized weakness not feeling well symptom has been going on f or the last few days, patient has been diagnosed with covid 19 pneumonia. On today's evaluation that is 06/08/2022, the patient continues to be afebrile, the patient is breathing comfortably on room air, the patient denies chest pain, the patient denies cough or sputum production, nausea no vomiting no abdominal pain no diarrhea Objective - Vital Signs Vital signs: Vital Signs Temp 97.9 F 06/08/22 07:28 Pulse 72 06/08/22 07:28 Resp 18 06/08/22 07:28 BP 100/65 06/08/22 07:28 Pulse Ox 95 06/08/22 07:28 FiO2 Intake & Output 06/07/22 06/08/22 06/08/22 18:59 06:59 18:59 Intake Total 1335 Output Total 1310 2100 250 Balance 25 -2100 -250 Weight 107.6 kg Intake: IV 675 Sodium Chloride 0.9% 1, 675 000 ml @ 75 mls/hr IV . [id number] [facility] Rx#:[id number] Intake, IV Titration 50 Amount cefTRIAXone 1 gm In 50 Sodium Chloride 0.9% 50 ml @ 100 mls/hr IVPB Q24HR [facility] Rx#:[id number] Blood Product 610 Rc As-1 Unit 310 [id number] Output: Urine 1310 2100 250 Other: Voiding Method Urinal Urinal # Bowel Movements 1 - Exam GENERAL DESCRIPTION: Middle-aged male lying in bed in no distress RESPIRATORY SYSTEM: Unlabored breathing , decreased intensity of breath sounds , no wheeze HEART: S1 S2 regular rate and rhythm , ABDOMEN: Soft , no tenderness EXTREMITIES: No edema feet - Labs CBC & Chem 7: 06/08/22 05:46 06/08/22 05:46 Labs: Abnormal Lab Results - Last 24 Hours (Table) 06/05/22 06/07/22 06/08/22 Range/Units 11:45 11:43 05:46 WBC 22.2 H 23.03 H (3.8-10.6) k/uL RBC 2.51 L 2.71 L (4.30-5.90) m/uL Hgb 7.7 L 8.0 L (13.0-17.5) gm/dL Hct 23.1 L 25.1 L (39.0-53.0) % MCHC 31.9 L (32.0-37.0) g/dL RDW 15.9 H 16.3 H (11.5-15.5) % Absolute Nucleated RBC 0.44 H (0.00-0.00) X 10*3/uL Metamyelocytes % 3 H (0-0) % Neutrophils # 18.2 H (1.3-7.7) k/uL Neutrophils # (Manual) 18.65 H (2.00-8.90) X 10*3/uL Monocytes # 1.3 H (0-1.0) k/uL Monocytes # (Manual) 1.61 H (0.20-1.00) X 10*3/uL Eosinophils # (Manual) 0 L (0.04-0.35) X 10*3/uL NRBC/100 WBC Diff 1.9 H (0.0-0.0) /100 WBCS Anion Gap (10.00-18.00) mmol/L BUN/Creatinine Ratio (12.00-20.00) Ratio Glucose (70-110) mg/dL Calcium (8.7-10.3) mg/dL Crossmatch See Detail 06/08/22 Range/Units 05:46 WBC (3.8-10.6) k/uL RBC (4.30-5.90) m/uL Hgb (13.0-17.5) gm/dL Hct (39.0-53.0) % MCHC (32.0-37.0) g/dL RDW (11.5-15.5) % Absolute Nucleated RBC (0.00-0.00) X 10*3/uL Metamyelocytes % (0-0) % Neutrophils # (1.3-7.7) k/uL Neutrophils # (Manual) (2.00-8.90) X 10*3/uL Monocytes # (0-1.0) k/uL Monocytes # (Manual) (0.20-1.00) X 10*3/uL Eosinophils # (Manual) (0.04-0.35) X 10*3/uL NRBC/100 WBC Diff (0.0-0.0) /100 WBCS Anion Gap 5.70 L (10.00-18.00) mmol/L BUN/Creatinine Ratio 29.13 H (12.00-20.00) Ratio Glucose 114 H (70-110) mg/dL Calcium 7.8 L (8.7-10.3) mg/dL Crossmatch Assessment and Plan (1) Coronavirus infection Current Visit: Yes Status: Acute Code(s): B34.2 - CORONAVIRUS INFECTION, UNSPECIFIED SNOMED Code(s): 468105158 Plan: 1patient presented to hospital with generalized weakness which is likely multifactorial in this patient with a likely component of dehydration with elevated BUN/creatinine and a component of COVID-19 pneumonia, however the patient is not running any fever and chest x-ray repeated 06/02/2022 is showing bibasilar infiltrate, patient did have a completion of A. fib with RVR and worsening respiratory status requiring transfer to the ICU on 06/03/2022, florinda t was subsequently stabilized and has been moved out of the ICU on 01/16/2023 2patient has shown overall clinical improvement patient has completed his 5 day course of remdisivir patient to continue with, Lovenox and ascorbic acid and dexamethasone and monitor his clinical course closely 3-leukocytosis is more likely dexamethasone related Time with Patient: Less than 30
[2022-06-09] MEDS: FERROUS SULFATE 325 MG TAB PO SCH ×2 (06:26→17:04)
[2022-06-09] MEDS: ASCORBIC ACID 500 MG TAB PO SCH (08:19)
[2022-06-09] MEDS: AMIODARONE 200 MG TAB PO SCH ×2 (08:19→21:12)
[2022-06-09] MEDS: CHOLECALCIFEROL 25 MCG (1000 IU) TABLET PO SCH (08:19)
[2022-06-09] MEDS: FAMOTIDINE 20 MG TAB PO SCH ×2 (08:19→21:12)
[2022-06-09] MEDS: DEXAMETHASONE SOD PHOSPHATE 10 MG/ML 1 ML VIAL IV SCH (08:19)
[2022-06-09] MEDS: METOPROLOL TARTRATE 25 MG TAB PO SCH ×2 (08:20→21:12)
[2022-06-09] MEDS: MULTIVITAMINS, THERA 1 EACH TAB PO SCH (08:20)
[2022-06-09] MEDS: ZINC SULFATE 220 MG CAP PO SCH (08:20)
[2022-06-09] MEDS: PANTOPRAZOLE 40 MG/10 ML VIAL IVP SCH ×2 (08:20→21:12)
[2022-06-09 09:41] LABS: HCT 25.9 % (39.6-50.0); HGB 8.1 g/dL (13.0-17.0); MCH 28.9 pg (27.0-32.0); MCHC 31.3 g/dL (32.0-37.0); MCV 92.5 fL (80.0-97.0); Mean Platelet Volume 10.3 fL (9.5-12.2); NRBC Per 100 WBC 0.8 /100 WBCS (0.0-0.0); Platelet Count 218 X 10*3/uL (140-440); RDW 17.5 % (11.5-14.5)
[2022-06-09 11:10] LABS: Basophils # (M) 0.24 X 10*3/uL (0.00-0.10); Eosinophils # (M) 0 X 10*3/uL (0.04-0.35); Lymphocytes # (M) 1.22 X 10*3/uL (0.90-5.00); Metamyelocytes % 3 % (0-0); Neutrophils # (M) 18.71 X 10*3/uL (2.00-8.90); Neutrophils % (M) 77 %; RBC Morphology NORMAL
--- NOTE | 2022-06-09 12:19 | P.PN ---
Subjective Progress Note Date: 06/09/22 Principal diagnosis: Covid 19 Pneumonia Patient is a 62-year-old male with a past medical history significant for coronary disease CVA TIA former smoker presenting to the ER this morning for evaluation of generalized weakness not feeling well symptom has been going on f or the last few days, patient has been diagnosed with covid 19 pneumonia. On today's evaluation that is 06/09/2022, the patient remains to be afebrile, the patient is breathing comfortably on room air and is currently satting 97%, the patient denies chest pain, occasional dry cough no nausea no vomiting no abdominal pain no diarrhea Objective - Vital Signs Vital signs: Vital Signs Temp 97.4 F L 06/09/22 07:26 Pulse 63 06/09/22 07:26 Resp 17 06/09/22 07:26 BP 99/63 06/09/22 07:26 Pulse Ox 97 06/09/22 07:26 FiO2 Intake & Output 06/08/22 06/09/22 06/09/22 18:59 06:59 18:59 Output Total 250 Balance -250 Weight 107.6 kg Output: Urine 250 Other: Voiding Method Urinal # Voids 2 0 # Bowel Movements 1 - Exam GENERAL DESCRIPTION: Middle-aged male lying in bed in no distress RESPIRATORY SYSTEM: Unlabored breathing , decreased intensity of breath sounds HEART: S1 S2 regular rate and rhythm , ABDOMEN: Soft , no tenderness EXTREMITIES: No edema feet - Labs CBC & Chem 7: 06/09/22 05:57 06/08/22 05:46 Labs: Abnormal Lab Results - Last 24 Hours (Table) 06/09/22 Range/Units 05:57 WBC 24.30 H (4.50-10.00) X 10*3/uL RBC 2.80 L (4.40-5.60) X 10*6/uL Hgb 8.1 L (13.0-17.0) g/dL Hct 25.9 L (39.6-50.0) % MCHC 31.3 L (32.0-37.0) g/dL RDW 17.5 H (11.5-14.5) % Absolute Nucleated RBC 0.19 H (0.00-0.00) X 10*3/uL Metamyelocytes % 3 H (0-0) % Neutrophils # (Manual) 18.71 H (2.00-8.90) X 10*3/uL Monocytes # (Manual) 3.40 H (0.20-1.00) X 10*3/uL Eosinophils # (Manual) 0 L (0.04-0.35) X 10*3/uL Basophils # (Manual) 0.24 H (0.00-0.10) X 10*3/uL NRBC/100 WBC Diff 0.8 H (0.0-0.0) /100 WBCS Assessment and Plan (1) Coronavirus infection Current Visit: Yes Status: Acute Code(s): B34.2 - CORONAVIRUS INFECTION, UNSPECIFIED SNOMED Code(s): 901061034 Plan: 1patient presented to hospital with generalized weakness which is likely multifactorial in this patient with a likely component of dehydration with elev ated BUN/creatinine and a component of COVID-19 pneumonia, however the patient is not running any fever and chest x-ray repeated 06/02/2022 is showing bibasilar infiltrate, patient did have a completion of A. fib with RVR and worsening respiratory status requiring transfer to the ICU on 06/03/2022, patient was subsequently stabilized and has been moved out of the ICU on 01/16/2023 2patient has shown clinical improvement patient has completed his 5 day course of remdisivir patient to continue with the current supportive treatment of Lovenox and ascorbic acid and monitor his clinical course closely 3-leukocytosis is more likely dexamethasone related and will be monitored closely, will recheck his inflammatory markers with a.m. labs Time with Patient: Less than 30
--- NOTE | 2022-06-09 13:03 | P.PN ---
Subjective Progress Note Date: 06/09/22 CHIEF COMPLAINT: Bleeding duodenal ulcer HISTORY OF PRESENT ILLNESS: Patient is status post EGD with clipping of bleeding duodenal ulcer. Patient had a smear of a black stool last night. Denies any abdominal pain. Denies any nausea or vomiting. Currently on a full liquid diet. Afebrile. BP 99/63. WBC is 24 hemoglobin stable at 8.1 platelets 218 PHYSICAL EXAM: VITAL SIGNS: Reviewed. GENERAL: Well-developed in no acute distress. HEENT: No sclera icterus. Extraocular movements grossly intact. Moist buccal mucosa. Head is atraumatic, normocephalic. ABDOMEN: Soft. Nondistended. Nontender. NEUROLOGIC: Alert and oriented. Cranial nerves II through XII grossly intact. ASSESSMENT: 1. Acute GI bleed with bleeding duodenal ulcer status post EGD with clipping PLAN: -Continue full liquids -Continue to monitor hemoglobin -Continue PPI -Continue to hold all blood thinners Physician Fun House Attendant note has been reviewed by physician. Signing provider agrees with the documented findings, assessment, and plan of care. Objective - Vital Signs Vital signs: Vital Signs Temp 97.4 F L 06/09/22 07:26 Pulse 63 06/09/22 07:26 Resp 17 06/09/22 07:26 BP 99/63 06/09/22 07:26 Pulse Ox 97 06/09/22 07:26 FiO2 Intake & Output 06/08/22 06/09/22 06/09/22 18:59 06:59 18:59 Output Total 250 Balance -250 Weight 107.6 kg Output: Urine 250 Other: Voiding Method Urinal # Voids 2 0 # Bowel Movements 1 - Labs CBC & Chem 7: 06/09/22 05:57 06/08/22 05:46 Labs: Abnormal Lab Results - Last 24 Hours (Table) 06/09/22 Range/Units 05:57 WBC 24.30 H (4.50-10.00) X 10*3/uL RBC 2.80 L (4.40-5.60) X 10*6/uL Hgb 8.1 L (13.0-17.0) g/dL Hct 25.9 L (39.6-50.0) % MCHC 31.3 L (32.0-37.0) g/dL RDW 17.5 H (11.5-14.5) % Absolute Nucleated RBC 0.19 H (0.00-0.00) X 10*3/uL Metamyelocytes % 3 H (0-0) % Neutrophils # (Manual) 18.71 H (2.00-8.90) X 10*3/uL Monocytes # (Manual) 3.40 H (0.20-1.00) X 10*3/uL Eosinophils # (Manual) 0 L (0.04-0.35) X 10*3/uL Basophils # (Manual) 0.24 H (0.00-0.10) X 10*3/uL NRBC/100 WBC Diff 0.8 H (0.0-0.0) /100 WBCS
--- NOTE | 2022-06-09 13:16 | P.PN ---
Subjective Progress Note Date: 06/09/22 Principal diagnosis: COVID-19, Atrial fibrillation RVR, GI bleeding 62-year-old male patient of the transferred to the intensive care unit yesterday evening for transfusion yesterday a chest fibrillation and rapid ventricular response. Noted the patient was hospitalized on 06/01/2022 for generalized weakness and Covid 19 infection. He is known to have coronary artery disease, previous CVA, and hyperlipidemia. Noted the patient came into the hospital and he was already receiving MOlnipiravir for Covid 19 infection on outpatient basis. He was initially on 2 L of oxygen by nasal cannula, admission. His chest x-ray showed some limited bibasilar pulmonary infiltration without any clear airspace disease of consolidation. And with the ongoing into fibrillation RVR, the patient became more hypoxic and currently is on 15 L high flow oxygen. In terms of his atrial fibrillation, the patient remains in A. fib RVR. Overnight, he was given Cardizem which essentially dropped his pressure to 80/60 and following that, the Cardizem drip was discontinued and the patient was given 1 L bolus, Lopressor bolus, and later on switched to amiodarone per protocol. He was given a bolus of amiodarone 150 mg and currently is on amiodarone at 0.5 g milligrams per minutes. He is also on anticoagulations those has been modified from a prophylactic dose to therapeutic dose of 100 mg subcu every 12 hours. No previous echocardiogram and an echocardiogram will be obtained today. In terms of his Covid 19 infection, the patient was started on Decadron and is currently receiving Decadron 6 mg IV every 24 hours. He is also on Remdesivir per protocol. The patient is also on IV fluids with normal saline at the rate of 20 mL an hour. Blood work from today shows WBC count of 27.2 with a hemoglobin of 16.1 and a platelet count of 113. Note that his pro calcitonin level at time of admission was 0.14. His CRP level was at 3.5. His lactic acid was at 2.6 and dropped down to 1.8 and currently is at 2.2. Awaiting follow-up labs from today. Noted the patient had an acute kidney injury and the creatinine was up to 1.6 from yesterday with a BUN of 44 and a serum bicarb of 18 and his sodium level of 133. His potassium level is at 4.6. Noted during this current admission, the patient received a total of 3 L of IV fluid boluses in the form of normal saline. On 06/04/2022, the patient is being seen in follow-up in intensive care unit. This morning, the patient is on 4 L of oxygen by nasal cannula and his overall respiratory status is improved considerably. Noted the patient got transferred to the intensive care unit and the patient was having a chest fibrillation with RVR. The patient was given various treatments and ultimately was switched amiodarone and he was loaded and maintained and he was receiving a dose of 1 mg/m. He did convert at around 3 PM yesterday afternoon into normal sinus rhythm. He is normotensive for now. No hypotension. Oxygen is improved and the patient is down to 4 L of O2 nasal cannula. Meanwhile, he is also Covid positive and he is receiving a combination of Decadron and Remdesivir care protocol. In terms of his echocardiogram, the patient was found to have a left ventricular ejection fraction of 45-50%. He had severe increase in septal wall thickness and mild mitral regurgitation. His pro calcitonin was elevated. His white cell count was also elevated at 27.2. Based on that, the patient was also given broad-spectrum antibiotic coverage and he was given a combination of Rocephin and Zithromax. In terms of his inflammatory markers, his LDH level was 520, CRP level was at 3.1. A repeat chest x-ray from today from today has been essentially stable with some limited infiltration of the lung bases. Meanwhile, the Doppler of the lower extremity was negative for DVT. The patient is currently on anticoagulants and he is receiving Lovenox 100 mg subcu injections every 12 hours. Is 06/05/2022, the patient is on 2 L of oxygen by nasal cannula. His cardiac rhythm remained sinus. History receiving treatment for Covid 19 infection. As his condition was improving, yesterday at around 9 PM, patient started having episodes of GI bleed. The patient had a large melanotic stools and he had several episodes of GI bleed throughout the night probably a total of 7. At that point, general surgery was consulted. Anticoagulations was placed on hold. Note that the patient received a combination of Lovenox initially and later on Eliquis regarding his atrial fibrillation. No known history of any peptic ulcer disease. Hemoglobin from this morning is down to 11.2 from a baseline of 16.4 at time of admission. Rest of the electrolytes are still pending for now. The patient was started on IV Protonix. Anticoagulations was placed on hold. Despite this GI bleed, the patient remains hemodynamically stable. No significant tachycardia. No abdominal pain. No nausea. No hematemesis. Repeat chest x-ray was done today and it shows no acute process. No significant change from the earlier chest x-ray. Some limited infiltration left lung base otherwise, the chest x-ray is essentially clear. For now, the patient is nothing by mouth. On 06/06/2022, the patient is currently in the intensive care unit. No active bleeding. He is on room air oxygen. The active issue for now for yesterday was the GI bleed. The patient underwent an EGD and the patient was found to have duodenal ulcer with evidence of bleeding and he also had duodenitis, gastritis and small hiatal hernia. EGD was completed with placement of a clip and control of bleeding and hemostasis was achieved. Since then, the patient has not had any further episodes of bleeding. Most recent hemoglobin from yesterday was 9.5. Repeat hemoglobin is pending for now. This morning, his calm and comfortable. He remains nothing by mouth. Remains on normal saline at rate of 75 mL an hour. Urine output is adequate. No significant shortness of breath. No fever or chills. echoes down to 20.5. Renal function is stable. He r emains on Decadron 6 mg IV every 24 hours and he is completing his course of REMdesivir. His cardiac rhythm is sinus. He is on amiodarone. He is also metoprolol. No anticoagulants for now. Evaluating this patient today on 06/07/2022 on a general medical floor. Patient is sitting up in bed, on room air, in no apparent distress. Patient denies shortness of breath, fevers overnight. Patient continues to deny any more episodes of bloody bowel movements overnight. Denies hematemeiss, abdominal pain. Patient is postoperative day #2 EGD and clipping. No new chest x-ray to review today. Patient's hemoglobin continues to trend down, but has not required any blood transfusions. His CBC from today shows WBC count of 23.5, hemoglobin 7, hematocrit 22.6, platelets 191,000. No new chemistry to review today. Patient has completed his course of remdesivir for Covid 19 infection. He is receiving normal saline at 75 mL per hour. He is receiving Protonix for GI prophylaxis, and DVT prophylaxis is on hold. He continues to receive Decadron. He is receiving ceftriaxone for empiric antibiotic therapy. Vital signs remain hemodynamically stable. Heart rate is controlled at 60 bpm and regular. He he is receiving oral amiodarone. I'm reevaluating this patient today on 06/08/2022 on a general medical floor. He is sitting up in bed, on room air, in no apparent distress. He has a walker at the bedside. Patient denies any fevers overnight. Patient denies any more bloody bowel movements, hematemesis, abdominal pain. He is postoperative day #3 from an EGD and clipping. Patient did receive 1 unit of PRBCs yesterday for hemoglobin of 7. He is asymptomatic. Hemoglobin from today is up to 8 g/dL, hematocrit 25.1, WBC is 23, platelets 216,000. BMP from today is stable with a sodium of 135, potassium 4.6, chloride 104, serum CO2 25, BUN 23.3, creatinine 0.8, glucose 114. No new chest x-ray to review today. Patient continues on empiric Rocephin. Normal saline at 70 mL per hour. Vital signs remain stable. I'm reevaluating this patient today on 06/09/2022 on a general medical floor. He sitting up in the recliner, on room air, in no acute distress. Patient denies any fevers overnight. no new chest x-ray to review today. Patient's hemoglobin today was stable at 8.1 g/dl and hematocrit 25.9; and patient has not required any further PRBC transfusions. he is receiving Protonix twice a day. Patient denies any further bloody bowel movements. His CBC does show some leukocytosis with a WBC count of 24.3. continues to receive empiric Rocephin. patient remains afebrile. he is also receiving Decadron. there is no new BMP to review today. vital signs remained stable. Objective - Vital Signs Vital signs: Vital Signs Temp 97.4 F L 06/09/22 07:26 Pulse 63 06/09/22 07:26 Resp 17 06/09/22 07:26 BP 99/63 06/09/22 07:26 Pulse Ox 97 06/09/22 07:26 FiO2 Intake & Output 06/08/22 06/09/22 06/09/22 18:59 06:59 18:59 Output Total 250 Balance -250 Weight 107.6 kg Output: Urine 250 Other: Voiding Method Urinal # Voids 2 0 # Bowel Movements 1 - Exam Gen. appearance the patient is sitting up in bed in no apparent distress. Head exam atraumatic and normocephalic Neck was supple and without jugular venous distension, thyromegaly, or carotid bruits. Carotids were easily palpable bilaterally. There was no adenopathy. Lungs sounds are clear and diminished bilaterally. No wheezes, rhonchi, crackles. On room air. No accessory some muscle use or conversational dyspnea noted. Heart Cardiac exam revealed the PMI to be normally situated and sized. Heart rhythm is regular, with normal S1-S2, no extra heart sounds noted. Heart rate 63 bpm There were no murmurs, rubs, clicks, or gallops. Abdominal exam revealed normal bowel sounds. The abdomen was soft, non-tender, and without masses, organomegaly, or appreciable enlargement of the abdominal aorta. Examination of the extremities revealed easily palpable radial, femoral and pedal pulses. There was no cyanosis, clubbing or edema. Examination of the skin revealed no evidence of significant rashes, petechia, purpura, or hematomas noted - Labs CBC & Chem 7: 06/09/22 05:57 06/08/22 05:46 Labs: Abnormal Lab Results - Last 24 Hours (Table) 06/09/22 Range/Units 05:57 WBC 24.30 H (4.50-10.00) X 10*3/uL RBC 2.80 L (4.40-5.60) X 10*6/uL Hgb 8.1 L (13.0-17.0) g/dL Hct 25.9 L (39.6-50.0) % MCHC 31.3 L (32.0-37.0) g/dL RDW 17.5 H (11.5-14.5) % Absolute Nucleated RBC 0.19 H (0.00-0.00) X 10*3/uL Metamyelocytes % 3 H (0-0) % Neutrophils # (Manual) 18.71 H (2.00-8.90) X 10*3/uL Monocytes # (Manual) 3.40 H (0.20-1.00) X 10*3/uL Eosinophils # (Manual) 0 L (0.04-0.35) X 10*3/uL Basophils # (Manual) 0.24 H (0.00-0.10) X 10*3/uL NRBC/100 WBC Diff 0.8 H (0.0-0.0) /100 WBCS Assessment and Plan Assessment: Acute Covid 19 infection. The patient has limited infiltration of the lung bases bilaterally. Possibility of a Covid 19 pneumonia cannot be completely ruled out. The patient has received 2 shots of vaccination. He was receiving Molnupiravir on outpatient basis. Currently, he is receiving Decadron. He has completed his course of Remdesivir. Respiratory status is stable, and patient is on room air. Acute hypoxic respiratory failure, improving and the patient is currently on RA Acute atrial fibrillation with rapid ventricular response, converted into normal sinus rhythm Hypotension, responded to fluids, on no pressors, recovered Acute upper GI bleed, post EGD and post clipping of a duodenal bleeding ulcer on 06/05/2022. He also has duodenitis. Patient was taken aspirin and Plavix and nonsteroidal anti-inflammatory medication outpatient basis. Here in the hospital, he was receiving Eliquis for history of atrial fibrillation. Eliquis remains on hold, patient's hemoglobin continues to trend down, patient denies any further episodes of bloody bowel movements. Blood loss anemia. He received 1 unit of PRBCs on June 07 for hemoglobin of 7gm/dl. hemoglobin today is up to 8.1 grams per deciliter, and he has not requ ired any further PRBC transfusions. Acute kidney injury, , recovered Coronary artery disease with previous LA and coronary stenting History of lupus ordered insertion Mild lactic acidosis, improved Mild elevation of procalcitonin level at 0.14. patient is empirically covered with Rocephin. Acute leukocytosis. Hyperlipidemia Hypertension Previous history of CVA, recovered without any residual deficits. Plan: Patient's medications and labs reviewed No further bleeding and hemoglobin is up to 8.1 Anticoagulation is on hold Continue IV Protonix. Procalcitonin only mildly elevated at 0.14 continue empiric antibiotic therapy in the form of Rocephin The patient completed course of Remdesivir. Patient's respiratory status is stable, and he is on room air the plan is to discharge to [facility] pending their Covid protocol From a pulmonary standpoint, patient is cleared for discharge. I have personally seen and examined the patient, performed the documentation and the assessment and plan as written. Number of minutes spent on the visit: 10. Time with Patient: Less than 30
--- NOTE | 2022-06-09 13:31 | P.PN ---
Subjective 62-year-old male with a past medical history significant for coronary disease CVA TIA former smoker presenting to the ER this morning for evaluation of generalized weakness not feeling well symptom has been going on for the last few days and apparently got worse overnight for the patient presented to hospital patient mention he did have no strength and has been feeling weak all over no energy patient did have some nausea but no vomiting no abdominal pain did have some diarrhea patient also complaining of shortness of breath on minim al exertion even at rest he did have a cough mild to moderate intensity mostly dry in nature with the symptoms the patient has been evaluated by ER physician on arrival to the ER the patient was afebrile and no fever has been recorded subsequently patient did have elevated lactic acid his white count is normal BUN/creatinine mildly elevated liver enzymes are normal COVID test came back positive RSV influenza was negative patient did have a chest x-ray 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 patient to continue with the Lovenox and ascorbic acid and dexamethasone however we will add Remdisivir for possible worsening of his underlying covid 19 pneumonia - We will give one-time dose of Lasix 20 mg IV 1 06/03/2022 Patient today was in the ICU in the morning with worsening respiratory distress, he was on 15 L/m of oxygen, also blood pressure was on the low side with systolic in the 90s with creatinine went up to 1.6 and today went down to 1.3. Also patient developed A. fib and RVR which contributed also to his hypotension, eventually patient able with by cardiology and pulmonary/critical care team and he was placed on small doses of pressors of Levophed, also I was started on normal saline 75 mL/h we'll close monitoring of blood pressure in the ICU. Cardizem drip which was started already switched to amiodarone drip and also he is on therapeutic dose of Lovenox for his A. fib and RVR Patient also respiratory status started improving and in the evening his oxygen requirements down to 7 L/m while he continues on treatment for his Covid infection with IV Decadron and remdisivir, Other than that labs showing leukocytosis while he is on steroids, creatinine improving. CRP slightly lower while LDH is normal. Distal tachypneic. Ultrasound of the neck is negative for DVT Echocardiogram showing ejection fraction of 45-50% with severe LVH Chest x-ray showing bibasilar infiltrates. Potential stone and is only mildly elevated at 0.13 however patient was placed on Zithromax 3 days. 06/07/2022 Patient's was admitted initially with a lateral Covid pneumonia and he finishes treatment with remdisivir , is saturating well with minimal tachypnea, His hospital course was completed with A. fib, rate is controlled now on metoprolol as well as amiodarone, family intervention specialist on the case, was on Lovenox 100 mg twice a day which was stopped because of a drop of his hemoglobin. He status post EGD and clipping of his bleeding duodenal ulcer. Last night he passed clots in his stool, he was hypotensive with blood pressure as low as 69/35, currently blood pressure 92/55. Patient denies chest pain or dyspnea but he feels weak. Hemoglobin dropped to 8.4.7.0. We going to give 1 unit of blood transfusion, 3 days ago on 06/04 hemoglobin was about 14. Discussed with the staff to give 1 units of blood per protocol after risks and benefits explained for the patient Continue with Protonix with increased frequency to twice a day. Also on Pepcid. Also I metoprolol 25 twice a day, low-dose of lisinopril 40 mg down to 20 mg tonight we will keep monitoring hemoglobin, also creatinine and electrolytes and vitals 06/08/2022 Patient clinically doing well, is fully awake and oriented, patient denies any other new symptoms. He denies abdominal pain. He had bowel movement today but he wasn't sure about the color, he did not notice any blood. Vital signs stable, blood pressure is still low normal systolic 90s to 100, lisinopril was lowered yesterday also responded to monitor blood transfusion, blood pressure improvement compared to yesterday. Lovenox recommended by family intervention specialist for a new A. fib still on hold. Aspirin & Plavix are also on hold Patient remains on Decadron, ceftriaxone,, multiple vitamins discontinue normal saline 75 mL/h and monitor blood pressure closely 06/09/2022 Patient sitting up in chair, looks somewhat weak but denies any specific complaints. He denies blood per stool but is still black once he started on iron. His hemoglobin is stable and gradually improving, today up to 8.1. Discussed with surgery team, they recommended to keep holding Lovenox anticoagulation for now, as well as aspirin and Plavix I discussed the case with case hardener, possible discharge on Tuesday, by that time he will be out of his blood isolation from his Covid infection and it will be easier to accommodate him. ECF for rehab Objective - Vital Signs Vital signs: Vital Signs Temp 97.4 F L 06/09/22 07:26 Pulse 63 06/09/22 07:26 Resp 17 06/09/22 07:26 BP 99/63 06/09/22 07:26 Pulse Ox 97 06/09/22 07:26 FiO2 Intake & Output 06/08/22 06/09/22 06/09/22 18:59 06:59 18:59 Output Total 250 Balance -250 Weight 107.6 kg Output: Urine 250 Other: Voiding Method Urinal # Voids 2 0 # Bowel Movements 1 - Exam GENERAL: The patient is alert and oriented x3, not in any acute distress. Well developed, well nourished. HEENT: Pupils are round and equally reacting to light. EOMI. No scleral icterus. No conjunctival pallor. Normocephalic, atraumatic. No pharyngeal erythema. No thyromegaly. CARDIOVASCULAR: S1 and S2 present. No murmurs, rubs, or gallops. -PULMONARY: Chest is clear to auscultation, no wheezing or bilateral scattered crepitation, improving ABDOMEN: Soft, nontender, nondistended, normoactive bowel sounds. No palpable organomegaly. MUSCULOSKELETAL: No joint swelling or deformity. EXTREMITIES: No cyanosis, clubbing, or pedal edema. NEUROLOGICAL: Gross neurological examination did not reveal any focal deficits. SKIN: No rashes. no petechiae. - Labs CBC & Chem 7: 06/09/22 05:57 06/08/22 05:46 Labs: Abnormal Lab Results - Last 24 Hours (Table) 06/09/22 Range/Units 05:57 WBC 24.30 H (4.50-10.00) X 10*3/uL RBC 2.80 L (4.40-5.60) X 10*6/uL Hgb 8.1 L (13.0-17.0) g/dL Hct 25.9 L (39.6-50.0) % MCHC 31.3 L (32.0-37.0) g/dL RDW 17.5 H (11.5-14.5) % Absolute Nucleated RBC 0.19 H (0.00-0.00) X 10*3/uL Metamyelocytes % 3 H (0-0) % Neutrophils # (Manual) 18.71 H (2.00-8.90) X 10*3/uL Monocytes # (Manual) 3.40 H (0.20-1.00) X 10*3/uL Eosinophils # (Manual) 0 L (0.04-0.35) X 10*3/uL Basophils # (Manual) 0.24 H (0.00-0.10) X 10*3/uL NRBC/100 WBC Diff 0.8 H (0.0-0.0) /100 WBCS Assessment and Plan Assessment: Bleeding duodenal ulcer status post EGD and clipping on 06/05 Acute blood loss anemia status post units of blood transfusion 06/07 Hypertension secondary to above Bilateral Covid pneumonia Acute hypoxic respiratory failure Increased inflammatory markers New-onset A. fib and RVR Acute kidney injury, improved Leukocytosis Plan: Give one unit of blood Continue with dexamethasone Continue with vitamin C, vitamin D and zinc Continue with normal saline continue with amiodarone and metoprolol Lower dose of lisinopril Surgery team on the case Pulmonary consult Continue holding aspirin and Plavix Infectious disease consult Cardiology consult Labs and medication were reviewed.. Continue same treatment. Continue with symptomatic treatment. Resume home medication. Monitor lytes and vitals. DVT and GI prophylaxis. Further recommendations as per clinical course of the patient DVT prophylaxis: Subcutaneous Lovenox GI Prophylaxis: Pepcid Prognosis is guarded
[2022-06-09] MEDS: ACETAMINOPHEN TAB 325 MG TAB PO PRN (19:32)
[2022-06-09] MEDS: ATORVASTATIN 40 MG TAB PO SCH (21:12)
[2022-06-09] MEDS: lisinopriL 20 MG TAB PO SCH (21:12)
[2022-06-10] MEDS: FERROUS SULFATE 325 MG TAB PO SCH ×2 (06:35→16:31)
[2022-06-10] MEDS: FAMOTIDINE 20 MG TAB PO SCH ×2 (10:09→22:23)
[2022-06-10] MEDS: ASCORBIC ACID 500 MG TAB PO SCH (10:09)
[2022-06-10] MEDS: CHOLECALCIFEROL 25 MCG (1000 IU) TABLET PO SCH (10:09)
[2022-06-10] MEDS: MULTIVITAMINS, THERA 1 EACH TAB PO SCH (10:09)
[2022-06-10] MEDS: AMIODARONE 200 MG TAB PO SCH ×2 (10:09→22:23)
[2022-06-10] MEDS: ZINC SULFATE 220 MG CAP PO SCH (10:09)
[2022-06-10] MEDS: METOPROLOL TARTRATE 25 MG TAB PO SCH ×2 (10:09→22:23)
[2022-06-10 10:40] LABS: HCT 26.3 % (39.6-50.0); HGB 8.3 g/dL (13.0-17.0); MCH 29.5 pg (27.0-32.0); MCHC 31.6 g/dL (32.0-37.0); MCV 93.6 fL (80.0-97.0); NRBC Per 100 WBC 0.4 /100 WBCS (0.0-0.0); Platelet Count 224 X 10*3/uL (140-440); RBC 2.81 X 10*6/uL (4.40-5.60); RDW 18.5 % (11.5-14.5); WBC 23.03 X 10*3/uL (4.50-10.00)
[2022-06-10] MEDS: DEXAMETHASONE SOD PHOSPHATE 10 MG/ML 1 ML VIAL IV SCH (10:54)
[2022-06-10] MEDS: PANTOPRAZOLE 40 MG/10 ML VIAL IVP SCH ×2 (10:54→22:23)
--- NOTE | 2022-06-10 11:33 | P.PN ---
Subjective 62-year-old male with a past medical history significant for coronary disease CVA TIA former smoker presenting to the ER this morning for evaluation of generalized weakness not feeling well symptom has been going on for the last few days and apparently got worse overnight for the patient presented to hospital patient mention he did have no strength and has been feeling weak all over no energy patient did have some nausea but no vomiting no abdominal pain did have some diarrhea patient also complaining of shortness of breath on minim al exertion even at rest he did have a cough mild to moderate intensity mostly dry in nature with the symptoms the patient has been evaluated by ER physician on arrival to the ER the patient was afebrile and no fever has been recorded subsequently patient did have elevated lactic acid his white count is normal BUN/creatinine mildly elevated liver enzymes are normal COVID test came back positive RSV influenza was negative patient did have a chest x-ray 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 patient to continue with the Lovenox and ascorbic acid and dexamethasone however we will add Remdisivir for possible worsening of his underlying covid 19 pneumonia - We will give one-time dose of Lasix 20 mg IV 1 06/03/2022 Patient today was in the ICU in the morning with worsening respiratory distress, he was on 15 L/m of oxygen, also blood pressure was on the low side with systolic in the 90s with creatinine went up to 1.6 and today went down to 1.3. Also patient developed A. fib and RVR which contributed also to his hypotension, eventually patient able with by cardiology and pulmonary/critical care team and he was placed on small doses of pressors of Levophed, also I was started on normal saline 75 mL/h we'll close monitoring of blood pressure in the ICU. Cardizem drip which was started already switched to amiodarone drip and also he is on therapeutic dose of Lovenox for his A. fib and RVR Patient also respiratory status started improving and in the evening his oxygen requirements down to 7 L/m while he continues on treatment for his Covid infection with IV Decadron and remdisivir, Other than that labs showing leukocytosis while he is on steroids, creatinine improving. CRP slightly lower while LDH is normal. Distal tachypneic. Ultrasound of the neck is negative for DVT Echocardiogram showing ejection fraction of 45-50% with severe LVH Chest x-ray showing bibasilar infiltrates. Potential stone and is only mildly elevated at 0.13 however patient was placed on Zithromax 3 days. 06/07/2022 Patient's was admitted initially with a lateral Covid pneumonia and he finishes treatment with remdisivir , is saturating well with minimal tachypnea, His hospital course was completed with A. fib, rate is controlled now on metoprolol as well as amiodarone, consumer lending manager on the case, was on Lovenox 100 mg twice a day which was stopped because of a drop of his hemoglobin. He status post EGD and clipping of his bleeding duodenal ulcer. Last night he passed clots in his stool, he was hypotensive with blood pressure as low as 69/35, currently blood pressure 92/55. Patient denies chest pain or dyspnea but he feels weak. Hemoglobin dropped to 8.4.7.0. We going to give 1 unit of blood transfusion, 3 days ago on 06/04 hemoglobin was about 14. Discussed with the staff to give 1 units of blood per protocol after risks and benefits explained for the patient Continue with Protonix with increased frequency to twice a day. Also on Pepcid. Also I metoprolol 25 twice a day, low-dose of lisinopril 40 mg down to 20 mg tonight we will keep monitoring hemoglobin, also creatinine and electrolytes and vitals 06/08/2022 Patient clinically doing well, is fully awake and oriented, patient denies any other new symptoms. He denies abdominal pain. He had bowel movement today but he wasn't sure about the color, he did not notice any blood. Vital signs stable, blood pressure is still low normal systolic 90s to 100, lisinopril was lowered yesterday also responded to monitor blood transfusion, blood pressure improvement compared to yesterday. Lovenox recommended by consumer lending manager for a new A. fib still on hold. Aspirin & Plavix are also on hold Patient remains on Decadron, ceftriaxone,, multiple vitamins discontinue normal saline 75 mL/h and monitor blood pressure closely 06/09/2022 Patient sitting up in chair, looks somewhat weak but denies any specific complaints. He denies blood per stool but is still black once he started on iron. His hemoglobin is stable and gradually improving, today up to 8.1. Discussed with surgery team, they recommended to keep holding Lovenox anticoagulation for now, as well as aspirin and Plavix I discussed the case with test case developer, possible discharge on Tuesday, by that time he will be out of his blood isolation from his Covid infection and it will be easier to accommodate him. ECF for rehab 06/10/2022 Patient sitting at the bedside eating his breakfast with no complaints. No new symptom. No chest pain or dyspnea. No report of blood per stool. His hemoglobin is improving 8.3. He has persistent significant leukocytosis at 23,000 however remains on Decadron Also remains on ceftriaxone Lovenox is still on hold as well as aspirin and Plavix per recommendation of surgery team. Possible discharge to rehab tomorrow if cleared by all consultants Objective - Vital Signs Vital signs: Vital Signs Temp 97.9 F 06/10/22 07:55 Pulse 67 06/10/22 07:55 Resp 17 06/10/22 07:55 BP 102/69 06/10/22 07:55 Pulse Ox 97 06/10/22 09:05 FiO2 Intake & Output 06/09/22 06/10/22 06/10/22 18:59 06:59 18:59 Output Total 1200 Balance -1200 Output: Urine 1200 Other: Voiding Method Urinal Urinal # Voids 4 # Bowel Movements 1 - Exam GENERAL: The patient is alert and oriented x3, not in any acute distress. Well developed, well nourished. HEENT: Pupils are round and equally reacting to light. EOMI. No scleral icterus. No conjunctival pallor. Normocephalic, atraumatic. No pharyngeal erythema. No thyromegaly. CARDIOVASCULAR: S1 and S2 present. No murmurs, rubs, or gallops. -PULMONARY: Chest is clear to auscultation, no wheezing or bilateral scattered crepitation, improving ABDOMEN: Soft, nontender, nondistended, normoactive bowel sounds. No palpable organomegaly. MUSCULOSKELETAL: No joint swelling or deformity. EXTREMITIES: No cyanosis, clubbing, or pedal edema. NEUROLOGICAL: Gross neurological examination did not reveal any focal deficits. SKIN: No rashes. no petechiae. - Labs CBC & Chem 7: 06/10/22 07:26 06/08/22 05:46 Labs: Abnormal Lab Results - Last 24 Hours (Table) 06/10/22 Range/Units 07:26 WBC 23.03 H (4.50-10.00) X 10*3/uL RBC 2.81 L (4.40-5.60) X 10*6/uL Hgb 8.3 L (13.0-17.0) g/dL Hct 26.3 L (39.6-50.0) % MCHC 31.6 L (32.0-37.0) g/dL RDW 18.5 H (11.5-14.5) % Absolute Nucleated RBC 0.10 H (0.00-0.00) X 10*3/uL NRBC/100 WBC Diff 0.4 H (0.0-0.0) /100 WBCS Assessment and Plan Assessment: Bleeding duodenal ulcer status post EGD and clipping on 06/05 Acute blood loss anemia status post units of blood transfusion 06/07 Hypertension secondary to above Bilateral Covid pneumonia Acute hypoxic respiratory failure Increased inflammatory markers New-onset A. fib and RVR Acute kidney injury, improved Leukocytosis Plan: Give one unit of blood Continue with dexamethasone Continue with vitamin C, vitamin D and zinc Continue with normal saline continue with amiodarone and metoprolol Lower dose of lisinopril Surgery team on the case Pulmonary consult Continue holding aspirin and Plavix Infectious disease consult Cardiology consult Labs and medication were reviewed.. Continue same treatment. Continue with symptomatic treatment. Resume home medication. Monitor lytes and vitals. DVT and GI prophylaxis. Further recommendations as per clinical course of the patient DVT prophylaxis: Subcutaneous Lovenox GI Prophylaxis: Pepcid Prognosis is guarded
[2022-06-10 12:17] LABS: Basophils # (M) 0 X 10*3/uL (0.00-0.10); Eosinophils # (M) 0 X 10*3/uL (0.04-0.35); Lymphocytes # (M) 2.07 X 10*3/uL (0.90-5.00); Metamyelocytes % 1 % (0-0); Monocytes # (M) 1.61 X 10*3/uL (0.20-1.00); Neutrophils # (M) 19.11 X 10*3/uL (2.00-8.90); Neutrophils % (M) 83 %
--- NOTE | 2022-06-10 15:25 | P.PN ---
Subjective Progress Note Date: 06/10/22 CHIEF COMPLAINT: Bleeding duodenal ulcer HISTORY OF PRESENT ILLNESS: Patient is status post EGD with clipping of bleeding duodenal ulcer. Patient had small black BM yesterday. Denies any abdominal pain. Denies any nausea or vomiting. Currently on a full liquid diet. Afebrile. WBC 23 HGB stable at 8.3 PHYSICAL EXAM: VITAL SIGNS: Reviewed. GENERAL: Well-developed in no acute distress. HEENT: No sclera icterus. Extraocular movements grossly intact. Moist buccal mucosa. Head is atraumatic, normocephalic. ABDOMEN: Soft. Nondistended. Nontender. NEUROLOGIC: Alert and oriented. Cranial nerves II through XII grossly intact. ASSESSMENT: 1. Acute GI bleed with bleeding duodenal ulcer status post EGD with clipping PLAN: -Continue full liquids -Continue to monitor hemoglobin -Continue PPI -Continue to hold all blood thinners -[facility] Phys[facility] Care Team Coordinator Scheduler note has been reviewed by physician. Signing provider agrees with the documented findings, assessment, and plan of care. I have personally seen and examined the patient, reviewed the [employer] /PAs history, exam and MDM and agree with the assessment and plan as written. Based on total visit time, I have performed more than 50% of the visit. As above: Patient tolerating full liquids. He did have another small black stool today. Hemoglobin is stable. May resume Plavix tomorrow. Continue hold aspirin and NSAID products. Would continue to hold more aggressive anticoagulation as well for now. Continue antiacids. Increase diet. Objective - Vital Signs Vital signs: Vital Signs Temp 98.4 F 06/10/22 13:25 Pulse 60 06/10/22 13:25 Resp 17 06/10/22 13:25 BP 127/78 06/10/22 13:25 Pulse Ox 100 06/10/22 13:25 FiO2 Intake & Output 06/09/22 06/10/22 06/10/22 18:59 06:59 18:59 Output Total 1200 Balance -1200 Output: Urine 1200 Other: Voiding Method Urinal Urinal # Voids 4 # Bowel Movements 1 - Labs CBC & Chem 7: 06/10/22 07:26 06/10/22 17:29 Labs: Abnormal Lab Results - Last 24 Hours (Table) 06/10/22 Range/Units 07:26 WBC 23.03 H (4.50-10.00) X 10*3/uL RBC 2.81 L (4.40-5.60) X 10*6/uL Hgb 8.3 L (13.0-17.0) g/dL Hct 26.3 L (39.6-50.0) % MCHC 31.6 L (32.0-37.0) g/dL RDW 18.5 H (11.5-14.5) % Absolute Nucleated RBC 0.10 H (0.00-0.00) X 10*3/uL Metamyelocytes % 1 H (0-0) % Neutrophils # (Manual) 19.11 H (2.00-8.90) X 10*3/uL Monocytes # (Manual) 1.61 H (0.20-1.00) X 10*3/uL Eosinophils # (Manual) 0 L (0.04-0.35) X 10*3/uL NRBC/100 WBC Diff 0.4 H (0.0-0.0) /100 WBCS
[2022-06-10 18:20] LABS: ALT 92 U/L (4-49); AST 53 U/L (17-59); African American GFR (CKD) >90 (>60 ml/min/1.73 sqM); Albumin 2.8 g/dL (3.5-5.0); Albumin/Globulin Ratio 1.1; Alkaline Phosphatase 80 U/L (38-126); Anion Gap 4 mmol/L; Blood Urea Nitrogen 21 mg/dL (9-20); C Reactive Protein 0.8 mg/dL (<1.0); Calcium 8.1 mg/dL (8.4-10.2); Carbon Dioxide 24 mmol/L (22-30); Chloride 104 mmol/L (98-107); Globulin 2.5 g/dL; Glucose 210 mg/dL (74-99); Non-African American GFR(CKD) >90 (>60 ml/min/1.73 sqM); Potassium 4.4 mmol/L (3.5-5.1); Sodium 132 mmol/L (137-145); Total Bilirubin 0.7 mg/dL (0.2-1.3); Total Protein 5.3 g/dL (6.3-8.2)
--- NOTE | 2022-06-10 19:12 | P.PN ---
Subjective Progress Note Date: 06/10/22 Principal diagnosis: Covid 19 Pneumonia Patient is a 62-year-old male with a past medical history significant for coronary disease CVA TIA former smoker presenting to the ER this morning for evaluation of generalized weakness not feeling well symptom has been going on f or the last few days, patient has been diagnosed with covid 19 pneumonia. On today's evaluation that is 06/10/2022, the patient continues to be afebrile, the patient is breathing comfortably on room air, the patient denies chest pain, the patient did have occasional dry cough no nausea no vomiting no abdominal pain no diarrhea Objective - Vital Signs Vital signs: Vital Signs Temp 97.9 F 06/10/22 07:55 Pulse 67 06/10/22 07:55 Resp 17 06/10/22 07:55 BP 102/69 06/10/22 07:55 Pulse Ox 97 06/10/22 09:05 FiO2 Intake & Output 06/09/22 06/10/22 06/10/22 18:59 06:59 18:59 Output Total 1200 Balance -1200 Output: Urine 1200 Other: Voiding Method Urinal Urinal # Voids 4 # Bowel Movements 1 - Exam GENERAL DESCRIPTION: Middle-aged male lying in bed in no distress RESPIRATORY SYSTEM: Unlabored breathing , decreased intensity of breath sounds HEART: S1 S2 regular rate and rhythm , ABDOMEN: Soft , no tenderness EXTREMITIES: No edema feet - Labs CBC & Chem 7: 06/10/22 07:26 06/10/22 17:29 Labs: Abnormal Lab Results - Last 24 Hours (Table) 06/10/22 Range/Units 07:26 WBC 23.03 H (4.50-10.00) X 10*3/uL RBC 2.81 L (4.40-5.60) X 10*6/uL Hgb 8.3 L (13.0-17.0) g/dL Hct 26.3 L (39.6-50.0) % MCHC 31.6 L (32.0-37.0) g/dL RDW 18.5 H (11.5-14.5) % Absolute Nucleated RBC 0.10 H (0.00-0.00) X 10*3/uL NRBC/100 WBC Diff 0.4 H (0.0-0.0) /100 WBCS Assessment and Plan (1) Coronavirus infection Current Visit: Yes Status: Acute Code(s): B34.2 - CORONAVIRUS INFECTION, UNSPECIFIED SNOMED Code(s): 895797680 Plan: 1patient presented to hospital with generalized weakness which is likely multifactorial in this patient with a likely component of dehydration with elevated BUN/creatinine and a component of COVID-19 pneumonia, however the pat ient is not running any fever and chest x-ray repeated 06/02/2022 is showing bibasilar infiltrate, patient did have a completion of A. fib with RVR and worsening respiratory status requiring transfer to the ICU on 06/03/2022, patient was subsequently stabilized and has been moved out of the ICU on 0 01/16/2023 2patient has shown clinical improvement patient has completed his 5 day course of remdisivir patient to continue with the current supportive treatment of Lovenox and ascorbic acid however discontinue dexamethasone 3-leukocytosis is more likely dexamethasone as the patient inflammatory markers are normal hopefully will improve after discontinuation of the dexamethasone Time with Patient: Less than 30
[2022-06-10] MEDS: ATORVASTATIN 40 MG TAB PO SCH (22:23)
[2022-06-10] MEDS: lisinopriL 20 MG TAB PO SCH (22:23)
[2022-06-11] MEDS: FERROUS SULFATE 325 MG TAB PO SCH ×2 (08:00→17:00)
[2022-06-11] MEDS: AMIODARONE 200 MG TAB PO SCH ×2 (08:00→21:29)
[2022-06-11] MEDS: CHOLECALCIFEROL 25 MCG (1000 IU) TABLET PO SCH (08:00)
[2022-06-11] MEDS: FAMOTIDINE 20 MG TAB PO SCH ×2 (08:00→21:29)
[2022-06-11] MEDS: ASCORBIC ACID 500 MG TAB PO SCH (08:00)
[2022-06-11] MEDS: METOPROLOL TARTRATE 25 MG TAB PO SCH ×2 (08:01→21:29)
[2022-06-11] MEDS: PANTOPRAZOLE 40 MG/10 ML VIAL IVP SCH (08:01)
[2022-06-11] MEDS: MULTIVITAMINS, THERA 1 EACH TAB PO SCH (08:01)
[2022-06-11] MEDS: ZINC SULFATE 220 MG CAP PO SCH (08:01)
[2022-06-11] MEDS: CLOPIDOGREL 75 MG TAB PO SCH (11:33)
--- NOTE | 2022-06-11 12:55 | P.PN ---
Subjective 62-year-old male with a past medical history significant for coronary disease CVA TIA former smoker presenting to the ER this morning for evaluation of generalized weakness not feeling well symptom has been going on for the last few days and apparently got worse overnight for the patient presented to hospital patient mention he did have no strength and has been feeling weak all over no energy patient did have some nausea but no vomiting no abdominal pain did have some diarrhea patient also complaining of shortness of breath on minim al exertion even at rest he did have a cough mild to moderate intensity mostly dry in nature with the symptoms the patient has been evaluated by ER physician on arrival to the ER the patient was afebrile and no fever has been recorded subsequently patient did have elevated lactic acid his white count is normal BUN/creatinine mildly elevated liver enzymes are normal COVID test came back positive RSV influenza was negative patient did have a chest x-ray 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 patient to continue with the Lovenox and ascorbic acid and dexamethasone however we will add Remdisivir for possible worsening of his underlying covid 19 pneumonia - We will give one-time dose of Lasix 20 mg IV 1 06/03/2022 Patient today was in the ICU in the morning with worsening respiratory distress, he was on 15 L/m of oxygen, also blood pressure was on the low side with systolic in the 90s with creatinine went up to 1.6 and today went down to 1.3. Also patient developed A. fib and RVR which contributed also to his hypotension, eventually patient able with by cardiology and pulmonary/critical care team and he was placed on small doses of pressors of Levophed, also I was started on normal saline 75 mL/h we'll close monitoring of blood pressure in the ICU. Cardizem drip which was started already switched to amiodarone drip and also he is on therapeutic dose of Lovenox for his A. fib and RVR Patient also respiratory status started improving and in the evening his oxygen requirements down to 7 L/m while he continues on treatment for his Covid infection with IV Decadron and remdisivir, Other than that labs showing leukocytosis while he is on steroids, creatinine improving. CRP slightly lower while LDH is normal. Distal tachypneic. Ultrasound of the neck is negative for DVT Echocardiogram showing ejection fraction of 45-50% with severe LVH Chest x-ray showing bibasilar infiltrates. Potential stone and is only mildly elevated at 0.13 however patient was placed on Zithromax 3 days. 06/07/2022 Patient's was admitted initially with a lateral Covid pneumonia and he finishes treatment with remdisivir , is saturating well with minimal tachypnea, His hospital course was completed with A. fib, rate is controlled now on metoprolol as well as amiodarone, label cutter on the case, was on Lovenox 100 mg twice a day which was stopped because of a drop of his hemoglobin. He status post EGD and clipping of his bleeding duodenal ulcer. Last night he passed clots in his stool, he was hypotensive with blood pressure as low as 69/35, currently blood pressure 92/55. Patient denies chest pain or dyspnea but he feels weak. Hemoglobin dropped to 8.4.7.0. We going to give 1 unit of blood transfusion, 3 days ago on 06/04 hemoglobin was about 14. Discussed with the staff to give 1 units of blood per protocol after risks and benefits explained for the patient Continue with Protonix with increased frequency to twice a day. Also on Pepcid. Also I metoprolol 25 twice a day, low-dose of lisinopril 40 mg down to 20 mg tonight we will keep monitoring hemoglobin, also creatinine and electrolytes and vitals 06/08/2022 Patient clinically doing well, is fully awake and oriented, patient denies any other new symptoms. He denies abdominal pain. He had bowel movement today but he wasn't sure about the color, he did not notice any blood. Vital signs stable, blood pressure is still low normal systolic 90s to 100, lisinopril was lowered yesterday also responded to monitor blood transfusion, blood pressure improvement compared to yesterday. Lovenox recommended by label cutter for a new A. fib still on hold. Aspirin & Plavix are also on hold Patient remains on Decadron, ceftriaxone,, multiple vitamins discontinue normal saline 75 mL/h and monitor blood pressure closely 06/09/2022 Patient sitting up in chair, looks somewhat weak but denies any specific complaints. He denies blood per stool but is still black once he started on iron. His hemoglobin is stable and gradually improving, today up to 8.1. Discussed with surgery team, they recommended to keep holding Lovenox anticoagulation for now, as well as aspirin and Plavix I discussed the case with case packer, possible discharge on Tuesday, by that time he will be out of his blood isolation from his Covid infection and it will be easier to accommodate him. ECF for rehab 06/10/2022 Patient sitting at the bedside eating his breakfast with no complaints. No new symptom. No chest pain or dyspnea. No report of blood per stool. His hemoglobin is improving 8.3. He has persistent significant leukocytosis at 23,000 however remains on Decadron Also remains on ceftriaxone Lovenox is still on hold as well as aspirin and Plavix per recommendation of surgery team. Possible discharge to rehab tomorrow if cleared by all consultants 06/11/2022 Patient clinically same, no new complaint Vitals are stable Patient was started on Plavix today per recommendation of surgery. We will check hemoglobin tomorrow. His aspirin and Eliquis remain on hold Possible discharge to subacute rehab tomorrow Remains on dexamethasone, multiple vitamins, and Protonix he finished his ceftriaxone Objective - Vital Signs Vital signs: Vital Signs Temp 97.7 F 06/11/22 07:08 Pulse 56 L 06/11/22 07:08 Resp 18 06/11/22 07:08 BP 116/73 06/11/22 07:08 Pulse Ox 96 06/11/22 07:08 FiO2 Intake & Output 06/10/22 06/11/22 06/11/22 18:59 06:59 18:59 Output Total 1600 Balance -1600 Output: Urine 1600 Other: Voiding Method Urinal Urinal Urinal # Voids 4 - Exam GENERAL: The patient is alert and oriented x3, not in any acute distress. Well developed, well nourished. HEENT: Pupils are round and equally reacting to light. EOMI. No scleral icterus. No conjunctival pallor. Normocephalic, atraumatic. No pharyngeal erythema. No thyromegaly. CARDIOVASCULAR: S1 and S2 present. No murmurs, rubs, or gallops. -PULMONARY: Chest is clear to auscultation, no wheezing or bilateral scattered crepitation, improving ABDOMEN: Soft, nontender, nondistended, normoactive bowel sounds. No palpable organomegaly. MUSCULOSKELETAL: No joint swelling or deformity. EXTREMITIES: No cyanosis, clubbing, or pedal edema. NEUROLOGICAL: Gross neurological examination did not reveal any focal deficits. SKIN: No rashes. no petechiae. - Labs CBC & Chem 7: 06/10/22 07:26 06/10/22 17:29 Labs: Abnormal Lab Results - Last 24 Hours (Table) 06/10/22 Range/Units 17:29 Sodium 132 L (137-145) mmol/L BUN 21 H (9-20) mg/dL Glucose 210 H (74-99) mg/dL Calcium 8.1 L (8.4-10.2) mg/dL ALT 92 H (4-49) U/L Total Protein 5.3 L (6.3-8.2) g/dL Albumin 2.8 L (3.5-5.0) g/dL Assessment and Plan Assessment: Bleeding duodenal ulcer status post EGD and clipping on 06/05 Acute blood loss anemia status post units of blood transfusion 06/07 Hypertension secondary to above Bilateral Covid pneumonia Acute hypoxic respiratory failure Increased inflammatory markers New-onset A. fib and RVR Acute kidney injury, improved Leukocytosis Plan: Give one unit of blood Continue with dexamethasone Continue with vitamin C, vitamin D and zinc Continue with normal saline continue with amiodarone and metoprolol Lower dose of lisinopril Surgery team on the case Pulmonary consult Continue holding aspirin Resume Plavix Infectious disease consult Cardiology consult Labs and medication were reviewed.. Continue same treatment. Continue with symptomatic treatment. Resume home medication. Monitor lytes and vitals. DVT and GI prophylaxis. Further recommendations as per clinical course of the patient DVT prophylaxis: Subcutaneous Lovenox GI Prophylaxis: Pepcid Prognosis is guarded
[2022-06-11] MEDS: NYSTATIN 100,000 UNIT/ML SUSP 500,000 UNIT/5 ML CUP PO SCH ×3 (14:30→22:41)
--- NOTE | 2022-06-11 15:53 | P.PN ---
Subjective Progress Note Date: 06/11/22 CHIEF COMPLAINT: Bleeding duodenal ulcer HISTORY OF PRESENT ILLNESS: Patient is status post EGD with clipping of bleeding duodenal ulcer. Patient had a small black BM today. Denies abdominal pain. Tolerating diet. He is on oral iron. No new labs PHYSICAL EXAM: VITAL SIGNS: Reviewed. GENERAL: Well-developed in no acute distress. HEENT: No sclera icterus. Extraocular movements grossly intact. Moist buccal mucosa. Head is atraumatic, normocephalic. ABDOMEN: Soft. Nondistended. Nontender. NEUROLOGIC: Alert and oriented. Cranial nerves II through XII grossly intact. ASSESSMENT: 1. Acute GI bleed with bleeding duodenal ulcer status post EGD with clipping PLAN: -Continue regular diet -Okay to resume Plavix -Hold off on starting aspirin, NSAIDs or any other anticoagulation -Okay to discharge from surgical standpoint Physician Classroom Technology Technician note has been reviewed by physician. Signing provider agrees with the documented findings, assessment, and plan of care. I have personally seen and examined the patient, reviewed the TEA TREE FARMER /PAs history, exam and MDM and agree with the assessment and plan as written. Based on total visit time, I have performed more than 50% of the visit. As above: Patient doing well today. No further bleeding. Continue antiacids. We'll sign off. Please call if needed. Objective - Vital Signs Vital signs: Vital Signs Temp 97.7 F 06/11/22 07:08 Pulse 56 L 06/11/22 07:08 Resp 18 06/11/22 07:08 BP 116/73 06/11/22 07:08 Pulse Ox 96 06/11/22 07:08 FiO2 Intake & Output 06/10/22 06/11/22 06/11/22 18:59 06:59 18:59 Output Total 1600 Balance -1600 Weight 107.6 kg Output: Urine 1600 Other: Voiding Method Urinal Urinal Urinal # Voids 4 - Labs CBC & Chem 7: 06/10/22 07:26 06/10/22 17:29 Labs: Abnormal Lab Results - Last 24 Hours (Table) 06/10/22 Range/Units 17:29 Sodium 132 L (137-145) mmol/L BUN 21 H (9-20) mg/dL Glucose 210 H (74-99) mg/dL Calcium 8.1 L (8.4-10.2) mg/dL ALT 92 H (4-49) U/L Total Protein 5.3 L (6.3-8.2) g/dL Albumin 2.8 L (3.5-5.0) g/dL
--- NOTE | 2022-06-11 19:39 | P.PN ---
Subjective Progress Note Date: 06/11/22 Principal diagnosis: Covid 19 Pneumonia Patient is a 62-year-old male with a past medical history significant for coronary disease CVA TIA former smoker presenting to the ER this morning for evaluation of generalized weakness not feeling well symptom has been going on f or the last few days, patient has been diagnosed with covid 19 pneumonia. On today's evaluation that is 06/11/2022, the patient remains to be afebrile, the patient is breathing comfortably on room air, the patient denies chest pain, the patient did have occasional cough but no sputum production, the patient denies nausea no vomiting no abdominal pain no diarrhea Objective - Vital Signs Vital signs: Vital Signs Temp 97.7 F 06/11/22 07:08 Pulse 56 L 06/11/22 07:08 Resp 18 06/11/22 07:08 BP 116/73 06/11/22 07:08 Pulse Ox 96 06/11/22 07:08 FiO2 Intake & Output 06/10/22 06/11/22 06/11/22 18:59 06:59 18:59 Output Total 1600 Balance -1600 Output: Urine 1600 Other: Voiding Method Urinal Urinal Urinal # Voids 4 - Exam GENERAL DESCRIPTION: Middle-aged male lying in bed in no distress RESPIRATORY SYSTEM: Unlabored breathing , decreased intensity of breath sounds HEART: S1 S2 regular rate and rhythm , ABDOMEN: Soft , no tenderness EXTREMITIES: No edema feet - Labs CBC & Chem 7: 06/10/22 07:26 06/10/22 17:29 Labs: Abnormal Lab Results - Last 24 Hours (Table) 06/10/22 Range/Units 17:29 Sodium 132 L (137-145) mmol/L BUN 21 H (9-20) mg/dL Glucose 210 H (74-99) mg/dL Calcium 8.1 L (8.4-10.2) mg/dL ALT 92 H (4-49) U/L Total Protein 5.3 L (6.3-8.2) g/dL Albumin 2.8 L (3.5-5.0) g/dL Assessment and Plan (1) Coronavirus infection Current Visit: Yes Status: Acute Code(s): B34.2 - CORONAVIRUS INFECTION, UNSPECIFIED SNOMED Code(s): 818800520 Plan: 1patient presented to hospital with generalized weakness which is likely multifactorial in this patient with a likely component of dehydration with elevated BUN/creatinine and a component of COVID-19 pneumonia, however the patient is not running any fever and chest x-ray repeated 06/02/2022 is showing bibasilar infiltrate, patient did have a completion of A. fib with RVR and worsening respiratory status requiring transfer to the ICU on 06/03/2022, patient was subsequently stabilized and has been moved out of the ICU on 01/16/2023 2patient has shown clinical improvement patient has completed his 5 day course of remdisivir patient to continue with the current supportive treatment of Lovenox and ascorbic acid 3-leukocytosis is more likely dexamethasone , however the patient did have a component of oral thrush could be contributing to this elevated white count we will add nystatin swish and swallow recheck a CBC with a.m. labs Time with Patient: Less than 30
[2022-06-11] MEDS: lisinopriL 20 MG TAB PO SCH (21:29)
[2022-06-11] MEDS: ATORVASTATIN 40 MG TAB PO SCH (21:29)
[2022-06-12] MEDS: PANTOPRAZOLE 40 MG/10 ML VIAL IVP SCH ×3 (06:33→22:14)
[2022-06-12] MEDS: CHOLECALCIFEROL 25 MCG (1000 IU) TABLET PO SCH (09:52)
[2022-06-12] MEDS: MULTIVITAMINS, THERA 1 EACH TAB PO SCH (09:52)
[2022-06-12] MEDS: METOPROLOL TARTRATE 25 MG TAB PO SCH ×2 (09:52→22:14)
[2022-06-12] MEDS: FAMOTIDINE 20 MG TAB PO SCH ×2 (09:52→22:14)
[2022-06-12] MEDS: NYSTATIN 100,000 UNIT/ML SUSP 500,000 UNIT/5 ML CUP PO SCH ×4 (09:52→22:13)
[2022-06-12] MEDS: AMIODARONE 200 MG TAB PO SCH ×2 (09:52→22:14)
[2022-06-12] MEDS: ASCORBIC ACID 500 MG TAB PO SCH (09:52)
[2022-06-12] MEDS: CLOPIDOGREL 75 MG TAB PO SCH (09:52)
[2022-06-12] MEDS: FERROUS SULFATE 325 MG TAB PO SCH ×2 (09:55→16:39)
[2022-06-12] MEDS: ZINC SULFATE 220 MG CAP PO SCH (09:55)
[2022-06-12 11:19] LABS: Basophils # (A) 0.07 X 10*3/uL (0.00-0.10); Basophils % (A) 0.4 %; Eosinophils # (A) 0.16 X 10*3/uL (0.04-0.35); Eosinophils % (A) 0.8 %; HCT 34.3 % (39.6-50.0); HGB 10.5 g/dL (13.0-17.0); Lymphocytes # (A) 4.19 X 10*3/uL (0.90-5.00); Lymphocytes % (A) 21.7 %; MCH 29.7 pg (27.0-32.0); MCHC 30.6 g/dL (32.0-37.0); MCV 97.2 fL (80.0-97.0); Monocytes # (A) 1.47 X 10*3/uL (0.20-1.00); Monocytes % (A) 7.6 %; NRBC Per 100 WBC 0.2 /100 WBCS (0.0-0.0); Neutrophils # (A) 12.67 X 10*3/uL (1.80-7.70); Neutrophils % (A) 65.5 %; Platelet Count 228 X 10*3/uL (140-440); RBC 3.53 X 10*6/uL (4.40-5.60); RDW 20.2 % (11.5-14.5); WBC 19.33 X 10*3/uL (4.50-10.00)
[2022-06-12 11:43] LABS: ALT 93 U/L (10-49); AST 34 U/L (14-35); African American GFR (CKD) 93.1 (60.0-200.0); Albumin 3.2 g/dL (3.8-4.9); Albumin/Globulin Ratio 1.52 (1.60-3.17); Alkaline Phosphatase 70 U/L (41-126); Blood Urea Nitrogen 20.6 mg/dL (9.0-27.0); C Reactive Protein <0.30 mg/dL (0.00-0.80); Calcium 8.6 mg/dL (8.7-10.3); Carbon Dioxide 25.1 mmol/L (20.0-27.5); Chloride 101 mmol/L (96-109); Globulin 2.1 g/dL (1.6-3.3); Glucose 82 mg/dL (70-110); Non-African American GFR(CKD) 80.3 (60.0-200.0); Potassium 4.7 mmol/L (3.5-5.5); Sodium 135 mmol/L (135-145); Total Protein 5.3 g/dL (6.2-8.2)
--- NOTE | 2022-06-12 14:52 | P.PN ---
Subjective Progress Note Date: 06/12/22 62-year-old male with a past medical history significant for coronary disease CVA TIA former smoker presenting to the ER this morning for evaluation of generalized weakness not feeling well symptom has been going on for the last few days and apparently got worse overnight for the patient presented to hospital patient mention he did have no strength and has been feeling weak all over no energy patient did have some nausea but no vomiting no abdominal pain did have some diarrhea patient also complaining of shortness of breath on minimal exertion even at rest he did have a cough mild to moderate intensity mostly dry in nature with the symptoms the patient has been evaluated by ER physician on arrival to the ER the patient was afebrile and no fever has been recorded subsequently patient did have elevated lactic acid his white count is normal BUN/creatinine mildly elevated liver enzymes are normal COVID test came back positive RSV influenza was negative patient did have a chest x-ray suspect chronic parenchymal fibrosis areas of acute infiltrate cannot be excluded patient has been admitted to the hospital patient presented to hospital with generalized weakness which is likely mul tifactorial in this patient with a likely component of dehydration with elevated BUN/creatinine and a component of COVID-19 pneumonia, however the patient is not running any fever and chest x-ray repeated 06/02/2022 is showing bibasilar infiltrate and the patient is currently requiring more supplemental oxygen than yesterday. patient to continue with the Lovenox and ascorbic acid and dexamethasone however we will add Remdisivir for possible worsening of his underlying covid 19 pneumonia - We will give one-time dose of Lasix 20 mg IV 1 06/03/2022 Patient today was in the ICU in the morning with worsening respiratory distress, he was on 15 L/m of oxygen, also blood pressure was on the low side with systolic in the 90s with creatinine went up to 1.6 and today went down to 1.3. Also patient developed A. fib and RVR which contributed also to his hypotension, eventually patient able with by cardiology and pulmonary/critical care team and he was placed on small doses of pressors of Levophed, also I was started on normal saline 75 mL/h we'll close monitoring of blood pressure in the ICU. Cardizem drip which was started already switched to amiodarone drip and also he is on therapeutic dose of Lovenox for his A. fib and RVR Patient also respiratory status started improving and in the evening his oxygen requirements down to 7 L/m while he continues on treatment for his Covid infection with IV Decadron and remdisivir, Other than that labs showing leukocytosis while he is on steroids, creatinine improving. CRP slightly lower while LDH is normal. Distal tachypneic. Ultrasound of the neck is negative for DVT Echocardiogram showing ejection fraction of 45-50% with severe LVH Chest x-ray showing bibasilar infiltrates. Potential stone and is only mildly elevated at 0.13 however patient was placed on Zithromax 3 days. 06/07/2022 Patient's was admitted initially with a lateral Covid pneumonia and he finishes treatment with remdisivir , is saturating well with minimal tachypnea, His hospital course was completed with A. fib, rate is controlled now on metoprolol as well as amiodarone, freelance art director on the case, was on Lovenox 100 mg twice a day which was stopped because of a drop of his hemoglobin. He status post EGD and clipping of his bleeding duodenal ulcer. Last night he passed clots in his stool, he was hypotensive with blood pressure as low as 69/35, currently blood pressure 92/55. Patient denies chest pain or dyspnea but he feels weak. Hemoglobin dropped to 8.4.7.0. We going to give 1 unit of blood transfusion, 3 days ago on 06/04 hemoglobin was about 14. Discussed with the staff to give 1 units of blood per protocol after risks and b enefits explained for the patient Continue with Protonix with increased frequency to twice a day. Also on Pepcid. Also I metoprolol 25 twice a day, low-dose of lisinopril 40 mg down to 20 mg tonight we will keep monitoring hemoglobin, also creatinine and electrolytes and vitals 06/08/2022 Patient clinically doing well, is fully awake and oriented, patient denies any other new symptoms. He denies abdominal pain. He had bowel movement today but he wasn't sure about the color, he did not notice any blood. Vital signs stable, blood pressure is still low normal systolic 90s to 100, lisinopril was lowered yesterday also responded to monitor blood transfusion, blood pressure improvement compared to yesterday. Lovenox recommended by freelance art director for a new A. fib still on hold. Aspirin & Plavix are also on hold Patient remains on Decadron, ceftriaxone,, multiple vitamins discontinue normal saline 75 mL/h and monitor blood pressure closely 06/09/2022 Patient sitting up in chair, looks somewhat weak but denies any specific complaints. He denies blood per stool but is still black once he started on iron. His hemoglobin is stable and gradually improving, today up to 8.1. Discussed with surgery team, they recommended to keep holding Lovenox anticoagulation for now, as well as aspirin and Plavix I discussed the case with onsite case manager, possible discharge on Tuesday, by that time he will be out of his blood isolation from his Covid infection and it will be easier to accommodate him. ECF for rehab 06/10/2022 Patient sitting at the bedside eating his breakfast with no complaints. No new symptom. No chest pain or dyspnea. No report of blood per stool. His hemoglobin is improving 8.3. He has persistent significant leukocytosis at 23,000 however remains on Decadron Also remains on ceftriaxone Lovenox is still on hold as well as aspirin and Plavix per recommendation of surgery team. Possible discharge to rehab tomorrow if cleared by all consultants 06/11/2022 Patient clinically same, no new complaint Vitals are stable Patient was started on Plavix today per recommendation of surgery. We will check hemoglobin tomorrow. His aspirin and Eliquis remain on hold Possible discharge to subacute rehab tomorrow Remains on dexamethasone, multiple vitamins, and Protonix he finished his ceftriaxone 06/12 Patient seen and examined. Laying comfortably in the bed. Denies any blood in the stools. Denies any shortness of breath. Vital signs stable REVIEW OF SYSTEMS: CONSTITUTIONAL: No fever, no malaise,. CARDIOVASCULAR: No chest pain, no palpitations, no syncope. PULMONARY: No shortness of breath, no cough, GASTROINTESTINAL: No diarrhea, no nausea, no vomiting, no abdominal pain. NEUROLOGICAL: No headaches, no weakness, PHYSICAL EXAMINATION: GENERAL: The patient is alert and oriented x3, not in any acute distress. Well developed, well nourished. HEENT: Pupils are round and equally reacting to light. EOMI. No scleral icterus. No conjunctival pallor. Normocephalic, atraumatic. No pharyngeal erythema. No thyromegaly. CARDIOVASCULAR: S1 and S2 present. No murmurs, rubs, or gallops. PULMONARY: Chest is clear to auscultation, no wheezing or crackles. ABDOMEN: Soft, nontender, nondistended, normoactive bowel sounds. No palpable organomegaly. MUSCULOSKELETAL: No joint swelling or deformity. EXTREMITIES: No cyanosis, clubbing, or pedal edema. NEUROLOGICAL: Gross neurological examination did not reveal any focal deficits. SKIN: No rashes. Assessment and plan Bleeding duodenal ulcer status post EGD and clipping on 06/05 Acute blood loss anemia status post units of blood transfusion 06/07 Hypertension secondary to above Bilateral Covid pneumonia Acute hypoxic respiratory failure Increased inflammatory markers New-onset A. fib and RVR Acute kidney injury, improved Leukocytosis Plan: Monitor vital signs Monitor CBC Gen. surgery is on board, cleared patient to be resumed back on Plavix Continue with dexamethasone Continue with vitamin C, vitamin D and zinc continue with amiodarone and metoprolol Continue rest of treatment for now Objective - Vital Signs Vital signs: Vital Signs Temp 98.4 F 06/12/22 14:00 Pulse 65 06/12/22 14:00 Resp 17 06/12/22 14:00 BP 108/66 06/12/22 14:00 Pulse Ox 99 06/12/22 14:00 FiO2 Intake & Output 06/11/22 06/12/22 06/12/22 18:59 06:59 18:59 Output Total 1180 Balance -1180 Weight 107.6 kg Output: Urine 1180 Other: Voiding Method Urinal Urinal Urinal - Labs CBC & Chem 7: 06/12/22 07:17 06/12/22 07:17 Labs: Abnormal Lab Results - Last 24 Hours (Table) 06/12/22 06/12/22 Range/Units 07:17 07:17 WBC 19.33 H (4.50-10.00) X 10*3/uL RBC 3.53 L (4.40-5.60) X 10*6/uL Hgb 10.5 L (13.0-17.0) g/dL Hct 34.3 L (39.6-50.0) % MCV 97.2 H (80.0-97.0) fL MCHC 30.6 L (32.0-37.0) g/dL RDW 20.2 H (11.5-14.5) % Absolute Nucleated RBC 0.04 H (0.00-0.00) X 10*3/uL Immature Gran # 0.77 H (0.00-0.04) X 10*3/uL Neutrophils # 12.67 H (1.80-7.70) X 10*3/uL Monocytes # 1.47 H (0.20-1.00) X 10*3/uL NRBC/100 WBC Diff 0.2 H (0.0-0.0) /100 WBCS Anion Gap 8.90 L (10.00-18.00) mmol/L BUN/Creatinine Ratio 20.60 H (12.00-20.00) Ratio Calcium 8.6 L (8.7-10.3) mg/dL ALT 93 H (10-49) U/L Total Protein 5.3 L (6.2-8.2) g/dL Albumin 3.2 L (3.8-4.9) g/dL Albumin/Globulin Ratio 1.52 L (1.60-3.17) g/dL
[2022-06-12] MEDS: lisinopriL 20 MG TAB PO SCH (22:14)
[2022-06-12] MEDS: ATORVASTATIN 40 MG TAB PO SCH (22:14)
[2022-06-13] MEDS: FERROUS SULFATE 325 MG TAB PO SCH ×2 (07:34→17:06)
[2022-06-13] MEDS: CHOLECALCIFEROL 25 MCG (1000 IU) TABLET PO SCH (07:54)
[2022-06-13] MEDS: AMIODARONE 200 MG TAB PO SCH ×2 (07:54→21:01)
[2022-06-13] MEDS: FAMOTIDINE 20 MG TAB PO SCH ×2 (07:54→21:01)
[2022-06-13] MEDS: ZINC SULFATE 220 MG CAP PO SCH (07:54)
[2022-06-13] MEDS: PANTOPRAZOLE 40 MG/10 ML VIAL IVP SCH ×2 (07:54→21:02)
[2022-06-13] MEDS: CLOPIDOGREL 75 MG TAB PO SCH (07:54)
[2022-06-13] MEDS: METOPROLOL TARTRATE 25 MG TAB PO SCH ×2 (07:54→21:02)
[2022-06-13] MEDS: MULTIVITAMINS, THERA 1 EACH TAB PO SCH (07:54)
[2022-06-13] MEDS: ASCORBIC ACID 500 MG TAB PO SCH (07:54)
[2022-06-13] MEDS: NYSTATIN 100,000 UNIT/ML SUSP 500,000 UNIT/5 ML CUP PO SCH ×4 (07:56→21:01)
--- NOTE | 2022-06-13 13:22 | P.PN ---
Subjective Progress Note Date: 06/13/22 62-year-old male with a past medical history significant for coronary disease CVA TIA former smoker presenting to the ER this morning for evaluation of generalized weakness not feeling well symptom has been going on for the last few days and apparently got worse overnight for the patient presented to hospital patient mention he did have no strength and has been feeling weak all over no energy patient did have some nausea but no vomiting no abdominal pain did have some diarrhea patient also complaining of shortness of breath on minimal exertion even at rest he did have a cough mild to moderate intensity mostly dry in nature with the symptoms the patient has been evaluated by ER physician on arrival to the ER the patient was afebrile and no fever has been recorded subsequently patient did have elevated lactic acid his white count is normal BUN/creatinine mildly elevated liver enzymes are normal COVID test came back positive RSV influenza was negative patient did have a chest x-ray suspect chronic parenchymal fibrosis areas of acute infiltrate cannot be excluded patient has been admitted to the hospital patient presented to hospital with generalized weakness which is likely mul tifactorial in this patient with a likely component of dehydration with elevated BUN/creatinine and a component of COVID-19 pneumonia, however the patient is not running any fever and chest x-ray repeated 06/02/2022 is showing bibasilar infiltrate and the patient is currently requiring more supplemental oxygen than yesterday. patient to continue with the Lovenox and ascorbic acid and dexamethasone however we will add Remdisivir for possible worsening of his underlying covid 19 pneumonia - We will give one-time dose of Lasix 20 mg IV 1 06/03/2022 Patient today was in the ICU in the morning with worsening respiratory distress, he was on 15 L/m of oxygen, also blood pressure was on the low side with systolic in the 90s with creatinine went up to 1.6 and today went down to 1.3. Also patient developed A. fib and RVR which contributed also to his hypotension, eventually patient able with by cardiology and pulmonary/critical care team and he was placed on small doses of pressors of Levophed, also I was started on normal saline 75 mL/h we'll close monitoring of blood pressure in the ICU. Cardizem drip which was started already switched to amiodarone drip and also he is on therapeutic dose of Lovenox for his A. fib and RVR Patient also respiratory status started improving and in the evening his oxygen requirements down to 7 L/m while he continues on treatment for his Covid infection with IV Decadron and remdisivir, Other than that labs showing leukocytosis while he is on steroids, creatinine improving. CRP slightly lower while LDH is normal. Distal tachypneic. Ultrasound of the neck is negative for DVT Echocardiogram showing ejection fraction of 45-50% with severe LVH Chest x-ray showing bibasilar infiltrates. Potential stone and is only mildly elevated at 0.13 however patient was placed on Zithromax 3 days. 06/07/2022 Patient's was admitted initially with a lateral Covid pneumonia and he finishes treatment with remdisivir , is saturating well with minimal tachypnea, His hospital course was completed with A. fib, rate is controlled now on metoprolol as well as amiodarone, digital media buyer on the case, was on Lovenox 100 mg twice a day which was stopped because of a drop of his hemoglobin. He status post EGD and clipping of his bleeding duodenal ulcer. Last night he passed clots in his stool, he was hypotensive with blood pressure as low as 69/35, currently blood pressure 92/55. Patient denies chest pain or dyspnea but he feels weak. Hemoglobin dropped to 8.4.7.0. We going to give 1 unit of blood transfusion, 3 days ago on 06/04 hemoglobin was about 14. Discussed with the staff to give 1 units of blood per protocol after risks and b enefits explained for the patient Continue with Protonix with increased frequency to twice a day. Also on Pepcid. Also I metoprolol 25 twice a day, low-dose of lisinopril 40 mg down to 20 mg tonight we will keep monitoring hemoglobin, also creatinine and electrolytes and vitals 06/08/2022 Patient clinically doing well, is fully awake and oriented, patient denies any other new symptoms. He denies abdominal pain. He had bowel movement today but he wasn't sure about the color, he did not notice any blood. Vital signs stable, blood pressure is still low normal systolic 90s to 100, lisinopril was lowered yesterday also responded to monitor blood transfusion, blood pressure improvement compared to yesterday. Lovenox recommended by digital media buyer for a new A. fib still on hold. Aspirin & Plavix are also on hold Patient remains on Decadron, ceftriaxone,, multiple vitamins discontinue normal saline 75 mL/h and monitor blood pressure closely 06/09/2022 Patient sitting up in chair, looks somewhat weak but denies any specific complaints. He denies blood per stool but is still black once he started on iron. His hemoglobin is stable and gradually improving, today up to 8.1. Discussed with surgery team, they recommended to keep holding Lovenox anticoagulation for now, as well as aspirin and Plavix I discussed the case with case making machine operator, possible discharge on Tuesday, by that time he will be out of his blood isolation from his Covid infection and it will be easier to accommodate him. ECF for rehab 06/10/2022 Patient sitting at the bedside eating his breakfast with no complaints. No new symptom. No chest pain or dyspnea. No report of blood per stool. His hemoglobin is improving 8.3. He has persistent significant leukocytosis at 23,000 however remains on Decadron Also remains on ceftriaxone Lovenox is still on hold as well as aspirin and Plavix per recommendation of surgery team. Possible discharge to rehab tomorrow if cleared by all consultants 06/11/2022 Patient clinically same, no new complaint Vitals are stable Patient was started on Plavix today per recommendation of surgery. We will check hemoglobin tomorrow. His aspirin and Eliquis remain on hold Possible discharge to subacute rehab tomorrow Remains on dexamethasone, multiple vitamins, and Protonix he finished his ceftriaxone 06/12 Patient seen and examined. Laying comfortably in the bed. Denies any blood in the stools. Denies any shortness of breath. Vital signs stable 06/13. Patient seen and examined. No acute issues overnight. Vital signs stable REVIEW OF SYSTEMS: CONSTITUTIONAL: No fever, no malaise,. CARDIOVASCULAR: No chest pain, no palpitations, no syncope. PULMONARY: No shortness of breath, no cough, GASTROINTESTINAL: No diarrhea, no nausea, no vomiting, no abdominal pain. NEUROLOGICAL: No headaches, no weakness, PHYSICAL EXAMINATION: GENERAL: The patient is alert and oriented x3, not in any acute distress. Well developed, well nourished. HEENT: Pupils are round and equally reacting to light. EOMI. No scleral icterus. No conjunctival pallor. Normocephalic, atraumatic. No pharyngeal erythema. No thyromegaly. CARDIOVASCULAR: S1 and S2 present. No murmurs, rubs, or gallops. PULMONARY: Chest is clear to auscultation, no wheezing or crackles. ABDOMEN: Soft, nontender, nondistended, normoactive bowel sounds. No palpable organomegaly. MUSCULOSKELETAL: No joint swelling or deformity. EXTREMITIES: No cyanosis, clubbing, or pedal edema. NEUROLOGICAL: Gross neurological examination did not reveal any focal deficits. SKIN: No rashes. Assessment and plan Bleeding duodenal ulcer status post EGD and clipping on 06/05 Acute blood loss anemia status post units of blood transfusion 06/07 Hypertension secondary to above Bilateral Covid pneumonia Acute hypoxic respiratory failure Increased inflammatory markers New-onset A. fib and RVR Acute kidney injury, improved Leukocytosis Plan: Monitor vital signs Monitor CBC Continue Plavix Continue with vitamin C, vitamin D and zinc continue with amiodarone and metoprolol Continue rest of treatment for now Waiting on discharge to rehab facility Objective - Vital Signs Vital signs: Vital Signs Temp 98.2 F 06/13/22 07:10 Pulse 62 06/13/22 08:00 Resp 17 06/13/22 08:00 BP 106/69 06/13/22 07:10 Pulse Ox 99 06/13/22 07:43 FiO2 Intake & Output 06/12/22 06/13/22 06/13/22 18:59 06:59 18:59 Output Total 450 400 Balance -450 -400 Output: Urine 450 400 Other: Voiding Method Urinal Urinal # Voids 1 - Labs CBC & Chem 7: 06/12/22 07:17 06/12/22 07:17
--- NOTE | 2022-06-13 14:24 | P.PN ---
Subjective Progress Note Date: 06/12/22 Principal diagnosis: Covid 19 Pneumonia Patient is a 62-year-old male with a past medical history significant for coronary disease CVA TIA former smoker presenting to the ER this morning for evaluation of generalized weakness not feeling well symptom has been going on f or the last few days, patient has been diagnosed with covid 19 pneumonia. On today's evaluation that is 06/12/2022, the patient continues to be afebrile, the patient is breathing comfortably on room air, the patient denies chest pain, the patient denies any cough or sputum production, no nausea no vomiting no abdominal pain no diarrhea Objective - Vital Signs Vital signs: Vital Signs Temp 98.6 F 06/12/22 08:00 Pulse 69 06/12/22 08:00 Resp 18 06/12/22 08:00 BP 99/66 06/12/22 08:00 Pulse Ox 98 06/12/22 08:00 FiO2 Intake & Output 06/11/22 06/12/22 06/12/22 18:59 06:59 18:59 Output Total 1180 Balance -1180 Weight 107.6 kg Output: Urine 1180 Other: Voiding Method Urinal Urinal Urinal - Exam GENERAL DESCRIPTION: Middle-aged male lying in bed in no distress RESPIRATORY SYSTEM: Unlabored breathing , decreased intensity of breath sounds HEART: S1 S2 regular rate and rhythm , ABDOMEN: Soft , no tenderness EXTREMITIES: No edema feet - Labs CBC & Chem 7: 06/12/22 07:17 06/12/22 07:17 Labs: Abnormal Lab Results - Last 24 Hours (Table) 06/12/22 Range/Units 07:17 WBC 19.33 H (4.50-10.00) X 10*3/uL RBC 3.53 L (4.40-5.60) X 10*6/uL Hgb 10.5 L (13.0-17.0) g/dL Hct 34.3 L (39.6-50.0) % MCV 97.2 H (80.0-97.0) fL MCHC 30.6 L (32.0-37.0) g/dL RDW 20.2 H (11.5-14.5) % Absolute Nucleated RBC 0.04 H (0.00-0.00) X 10*3/uL Immature Gran # 0.77 H (0.00-0.04) X 10*3/uL Neutrophils # 12.67 H (1.80-7.70) X 10*3/uL Monocytes # 1.47 H (0.20-1.00) X 10*3/uL NRBC/100 WBC Diff 0.2 H (0.0-0.0) /100 WBCS Assessment and Plan (1) Coronavirus infection Current Visit: Yes Status: Acute Code(s): B34.2 - CORONAVIRUS INFECTION, UNSPECIFIED SNOMED Code(s): 535519064 Plan: 1patient presented to hospital with generalized weakness which is likely multifactorial in this patient with a likely component of dehydration with elevated BUN/creatinine and a component of COVID-19 pneumonia, patient has shown clinical improvement as for as covid 19 pneumonia, patient has completed his 5 day course of remdisivir patient to continue with the current supportive treatment of Lovenox and ascorbic acid 2-leukocytosis is more likely dexamethasone , however the patient did have a component of oral thrush could be contributing to this elevated white count , patient to continue with the nystatin swish and swallow patient white count is d own to 19,000 today and will monitor closely Time with Patient: Less than 30
--- NOTE | 2022-06-13 14:25 | P.PN ---
Subjective Progress Note Date: 06/13/22 Principal diagnosis: Covid 19 Pneumonia Patient is a 62-year-old male with a past medical history significant for coronary disease CVA TIA former smoker presenting to the ER this morning for evaluation of generalized weakness not feeling well symptom has been going on f or the last few days, patient has been diagnosed with covid 19 pneumonia. On today's evaluation that is 06/13/2022, the patient denies any fever or any chills, the patient is breathing comfortably on room air, the patient denies chest pain, the patient did have occasional dry cough, no nausea no vomiting no abdominal pain no diarrhea Objective - Vital Signs Vital signs: Vital Signs Temp 99.0 F 06/13/22 14:00 Pulse 77 06/13/22 14:00 Resp 18 06/13/22 14:00 BP 130/84 06/13/22 14:00 Pulse Ox 96 06/13/22 14:00 FiO2 Intake & Output 06/12/22 06/13/22 06/13/22 18:59 06:59 18:59 Output Total 450 400 Balance -450 -400 Output: Urine 450 400 Other: Voiding Method Urinal Urinal # Voids 1 - Exam GENERAL DESCRIPTION: Middle-aged male lying in bed in no distress RESPIRATORY SYSTEM: Unlabored breathing , decreased intensity of breath sounds HEART: S1 S2 regular rate and rhythm , ABDOMEN: Soft , no tenderness EXTREMITIES: No edema feet - Labs CBC & Chem 7: 06/12/22 07:17 06/12/22 07:17 Assessment and Plan (1) Coronavirus infection Current Visit: Yes Status: Acute Code(s): B34.2 - CORONAVIRUS INFECTION, UNSPECIFIED SNOMED Code(s): 125202341 Plan: 1patient presented to hospital with generalized weakness which is likely multifactorial in this patient with a likely component of dehydration with elevated BUN/creatinine and a component of COVID-19 pneumonia, patient has shown clinical improvement as for as covid 19 pneumonia, patient has completed his 5 day course of remdisivir patient to continue with the current supportive treatment of Lovenox and ascorbic acid 2-leukocytosis is more likely dexamethasone , however the patient did have a component of oral thrush could be contributing to this elevated white count , patient to continue with the nystatin swish and swallow patient white count was down to 19,000 yesterday no CBC was done today we will recheck his CBC CRP and a pro-calcitonin with a.m. lab Time with Patient: Less than 30
[2022-06-13] MEDS: ATORVASTATIN 40 MG TAB PO SCH (21:01)
[2022-06-13] MEDS: lisinopriL 20 MG TAB PO SCH (21:02)
[2022-06-14] MEDS: FERROUS SULFATE 325 MG TAB PO SCH (06:47)
[2022-06-14 07:13] VITALS: RESP 16
[2022-06-14] MEDS: CHOLECALCIFEROL 25 MCG (1000 IU) TABLET PO SCH (08:42)
[2022-06-14] MEDS: AMIODARONE 200 MG TAB PO SCH (08:42)
[2022-06-14] MEDS: ASCORBIC ACID 500 MG TAB PO SCH (08:42)
[2022-06-14] MEDS: NYSTATIN 100,000 UNIT/ML SUSP 500,000 UNIT/5 ML CUP PO SCH ×2 (08:42→12:25)
[2022-06-14] MEDS: FAMOTIDINE 20 MG TAB PO SCH (08:42)
[2022-06-14] MEDS: MULTIVITAMINS, THERA 1 EACH TAB PO SCH (08:42)
[2022-06-14] MEDS: METOPROLOL TARTRATE 25 MG TAB PO SCH (08:42)
[2022-06-14] MEDS: ZINC SULFATE 220 MG CAP PO SCH (08:42)
[2022-06-14] MEDS: CLOPIDOGREL 75 MG TAB PO SCH (08:42)
[2022-06-14 08:59] LABS: African American GFR (CKD) 93.4 (60.0-200.0); Albumin 2.9 g/dL (3.8-4.9); Albumin/Globulin Ratio 1.66 (1.60-3.17); Anion Gap 7.7 mmol/L (10.00-18.00); BUN/Creat Ratio 22.27 Ratio (12.00-20.00); Blood Urea Nitrogen 22.2 mg/dL (9.0-27.0); C Reactive Protein 0.7 mg/dL (0.00-0.80); Calcium 8.4 mg/dL (8.7-10.3); Globulin 1.8 g/dL (1.6-3.3); Non-African American GFR(CKD) 80.6 (60.0-200.0); Potassium 4.4 mmol/L (3.5-5.5); Total Bilirubin 0.8 mg/dL (0.30-1.20); Total Protein 4.7 g/dL (6.2-8.2)
[2022-06-14] MEDS: PANTOPRAZOLE 40 MG/10 ML VIAL IVP SCH (09:11)
[2022-06-14 09:17] LABS: Basophils # (A) 0.02 X 10*3/uL (0.00-0.10); Basophils % (A) 0.1 %; Eosinophils # (A) 0.22 X 10*3/uL (0.04-0.35); Eosinophils % (A) 1.5 %; HCT 28.8 % (39.6-50.0); HGB 8.8 g/dL (13.0-17.0); Immature Grans, Automated 1.9 %; Lymphocytes # (A) 2.47 X 10*3/uL (0.90-5.00); MCH 29.6 pg (27.0-32.0); MCHC 30.6 g/dL (32.0-37.0); Mean Platelet Volume 9.5 fL (9.5-12.2); Monocytes # (A) 1.14 X 10*3/uL (0.20-1.00); Monocytes % (A) 7.8 %; NRBC Per 100 WBC 0 /100 WBCS (0.0-0.0); Neutrophils # (A) 10.41 X 10*3/uL (1.80-7.70); Neutrophils % (A) 71.7 %; Platelet Count 182 X 10*3/uL (140-440); RBC 2.97 X 10*6/uL (4.40-5.60); RDW 20.4 % (11.5-14.5); WBC 14.53 X 10*3/uL (4.50-10.00)
--- NOTE | 2022-06-14 12:00 | P.DS ---
Providers Date of admission: 06/02/22 14:26 Expected date of discharge: 06/14/22 Attending physician: Abhi Donovan MD Consults: 06/01/22 13:02 Consult Physician Routine Consulting Provider: Darcie Mustafa Consult Reason/Comments: covid 19 Do you want consulting provider notified?: Yes 06/02/22 21:30 Consult Physician Stat Consulting Provider: Mehran Blanca Consult Reason/Comments: NOS Afib RVR Do you want consulting provider notified?: Yes 06/03/22 01:13 Consult Physician Stat Consulting Provider: Monica Dean Consult Reason/Comments: ICU management Do you want consulting provider notified?: Already Contacted 06/05/22 07:31 Consult Physician Stat Consulting Provider: Vikas Moreno Consult Reason/Comments: GI Bleed Do you want consulting provider notified?: Already Contacted Primary care physician: Sandra Abraham Hospital Course: Discharge diagnoses; Bleeding duodenal ulcer status post EGD and clipping on 06/05 Acute blood loss anemia status post units of blood transfusion 06/07 Hypertension secondary to above Bilateral Covid pneumonia Acute hypoxic respiratory failure Increased inflammatory markers New-onset A. fib and RVR Acute kidney injury, improved Leukocytosis Hospital course; 62-year-old male with a past medical history significant for coronary disease CVA TIA former smoker presenting to the ER this morning for evaluation of generalized weakness not feeling well symptom has been going on for the last few days and apparently got worse overnight for the patient presented to hospital patient mention he did have no strength and has been feeling weak all over no energy patient did have some nausea but no vomiting no abdominal pain did have some diarrhea patient also complaining of shortness of breath on minimal exertion even at rest he did have a cough mild to moderate intensity mostly dry in nature with the symptoms the patient has been evaluated by ER physician on arrival to the ER the patient was afebrile and no fever has been recorded subsequently patient did have elevated lactic acid his white count is normal BUN/creatinine mildly elevated liver enzymes are normal COVID test came back positive RSV influenza was negative patient did have a chest x-ray 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 patient to continue with the Lovenox and ascorbic acid and dexamethasone however we will add Remdisivir for possible worsening of his underlying covid 19 pneumonia - We will give one-time dose of Lasix 20 mg IV 1 06/03/2022 Patient today was in the ICU in the morning with worsening respiratory distress, he was on 15 L/m of oxygen, also blood pressure was on the low side with systolic in the 90s with creatinine went up to 1.6 and today went down to 1.3. Also patient developed A. fib and RVR which contributed also to his hypotension, eventually patient able with by cardiology and pulmonary/critical care team and he was placed on small doses of pressors of Levophed, also I was started on normal saline 75 mL/h we'll close monitoring of blood pressure in the ICU. Cardizem drip which was started already switched to amiodarone drip and also he is on therapeutic dose of Lovenox for his A. fib and RVR Patient also respiratory status started improving and in the evening his oxygen requirements down to 7 L/m while he continues on treatment for his Covid infection with IV Decadron and remdisivir, Other than that labs showing leukocytosis while he is on steroids, creatinine improving. CRP slightly lower while LDH is normal. Distal tachypneic. Ultrasound of the neck is negative for DVT Echocardiogram showing ejection fraction of 45-50% with severe LVH Chest x-ray showing bibasilar infiltrates. Potential stone and is only mildly elevated at 0.13 however patient was placed on Zithromax 3 days. 06/07/2022 Patient's was admitted initially with a lateral Covid pneumonia and he finishes treatment with remdisivir , is saturating well with minimal tachypnea, His hospital course was completed with A. fib, rate is controlled now on metoprolol as well as amiodarone, natural sciences department chair on the case, was on Lovenox 100 mg twice a day which was stopped because of a drop of his hemoglobin. He status post EGD and clipping of his bleeding duodenal ulcer. Last night he passed clots in his stool, he was hypotensive with blood pressure as low as 69/35, currently blood pressure 92/55. Patient denies chest pain or dyspnea but he feels weak. Hemoglobin dropped to 8.4.7.0. We going to give 1 unit of blood transfusion, 3 days ago on 06/04 hemoglobin was about 14. Discussed with the staff to give 1 units of blood per protocol after risks and benefits explained for the patient Continue with Protonix with increased frequency to twice a day. Also on Pepcid. Also I metoprolol 25 twice a day, low-dose of lisinopril 40 mg down to 20 mg tonight we will keep monitoring hemoglobin, also creatinine and electrolytes and vitals 06/08/2022 Patient clinically doing well, is fully awake and oriented, patient denies any other new symptoms. He denies abdominal pain. He had bowel movement today but he wasn't sure about the color, he did not notice any blood. Vital signs stable, blood pressure is still low normal systolic 90s to 100, lisinopril was lowered yesterday also responded to monitor blood transfusion, blood pressure improvement compared to yesterday. Lovenox recommended by natural sciences department chair for a new A. fib still on hold. Aspirin & Plavix are also on hold Patient remains on Decadron, ceftriaxone,, multiple vitamins discontinue normal saline 75 mL/h and monitor blood pressure closely 06/09/2022 Patient sitting up in chair, looks somewhat weak but denies any specific complaints. He denies blood per stool but is still black once he started on iron. His hemoglobin is stable and gradually improving, today up to 8.1. Discussed with surgery team, they recommended to keep holding Lovenox anticoagulation for now, as well as aspirin and Plavix I discussed the case with case aide, possible discharge on Tuesday, by that time he will be out of his blood isolation from his Covid infection and it will be easier to accommodate him. ECF for rehab 06/10/2022 Patient sitting at the bedside eating his breakfast with no complaints. No new symptom. No chest pain or dyspnea. No report of blood per stool. His hemoglobin is improving 8.3. He has persistent significant leukocytosis at 23,000 however remains on Decadron Also remains on ceftriaxone Lovenox is still on hold as well as aspirin and Plavix per recommendation of surgery team. Possible discharge to rehab tomorrow if cleared by all consultants 06/11/2022 Patient clinically same, no new complaint Vitals are stable Patient was started on Plavix today per recommendation of surgery. We will check hemoglobin tomorrow. His aspirin and Eliquis remain on hold Possible discharge to subacute rehab tomorrow Remains on dexamethasone, multiple vitamins, and Protonix he finished his ceftriaxone 06/12 Patient seen and examined. Laying comfortably in the bed. Denies any blood in the stools. Denies any shortness of breath. Vital signs stable 06/13. Patient seen and examined. No acute issues overnight. Vital signs stable 06/14. Patient seen and examined. Was waiting on rehab facility, shoulders denied rehab. Patient is being discharged home with homecare. WBC this morning is 14.53, hemoglobin is 8.8, vital signs stable PHYSICAL EXAMINATION: GENERAL: The patient is alert and oriented x3, not in any acute distress. Well developed, well nourished. HEENT: Pupils are round and equally reacting to light. EOMI. No scleral icterus. No conjunctival pallor. Normocephalic, atraumatic. No pharyngeal erythema. No thyromegaly. CARDIOVASCULAR: S1 and S2 present. No murmurs, rubs, or gallops. PULMONARY: Chest is clear to auscultation, no wheezing or crackles. ABDOMEN: Soft, nontender, nondistended, normoactive bowel sounds. No palpable organomegaly. MUSCULOSKELETAL: No joint swelling or deformity. EXTREMITIES: No cyanosis, clubbing, or pedal edema. NEUROLOGICAL: Gross neurological examination did not reveal any focal deficits. SKIN: No rashes. Patient Condition at Discharge: Fair Plan - Discharge Summary New Discharge Prescriptions: New lisinopriL [Zestril] 20 mg PO HS #30 tab Amiodarone [Cordarone] 200 mg PO BID #30 tab Ferrous Sulfate [Iron (65 MG Elemental)] 325 mg PO BID-W/MEALS #60 tab Metoprolol Tartrate [Lopressor] 25 mg PO BID #60 tab Nystatin 100,000 Unit/ml Susp [Mycostatin Oral Susp] 500,000 unit PO QID 7 Days #140 ml Continue Naproxen Sodium [Aleve] 440 mg PO DAILY PRN PRN Reason: Pain Clopidogrel [Plavix] 75 mg PO HS Multivitamins, Thera [Multivitamin (formulary)] 1 tab PO HS Multivitamins, Thera [Multivitamin (formulary)] 1 tab PO DAILY Atorvastatin [Lipitor] 40 mg PO HS Discontinued Aspirin EC [Ecotrin Low Dose] 81 mg PO DAILY hydroCHLOROthiazide 12.5 mg PO BID PRN PRN Reason: Blood Pressure - High Metoprolol Tartrate [Lopressor] 12.5 mg PO HS lisinopriL 40 mg PO HS Discharge Medication List Atorvastatin [Lipitor] 40 mg PO HS 06/01/22 [History] Clopidogrel [Plavix] 75 mg PO HS 06/01/22 [History] Multivitamins, Thera [Multivitamin (formulary)] 1 tab PO DAILY 06/01/22 [History] Multivitamins, Thera [Multivitamin (formulary)] 1 tab PO HS 06/01/22 [History] Naproxen Sodium [Aleve] 440 mg PO DAILY PRN 06/01/22 [History] Amiodarone [Cordarone] 200 mg PO BID #30 tab 06/14/22 [Rx] Ferrous Sulfate [Iron (65 MG Elemental)] 325 mg PO BID-W/MEALS #60 tab 06/14/22 [Rx] Metoprolol Tartrate [Lopressor] 25 mg PO BID #60 tab 06/14/22 [Rx] Nystatin 100,000 Unit/ml Susp [Mycostatin Oral Susp] 500,000 unit PO QID 7 Days #140 ml 06/14/22 [Rx] lisinopriL [Zestril] 20 mg PO HS #30 tab 06/14/22 [Rx] Follow up Appointment(s)/Referral(s): Vikas Moreno MD [Medical Doctor] - 1 Week Sandra Abraham DO [Primary Care Provider] - 1-2 days Luis Mahan MD [STAFF PHYSICIAN] - 1 Week Discharge Disposition: HOME WITH HOME HEALTH SERVICES
--- NOTE | 2022-06-14 12:40 | P.PN ---
Subjective Progress Note Date: 06/14/22 Principal diagnosis: Covid 19 Pneumonia Patient is a 62-year-old male with a past medical history significant for coronary disease CVA TIA former smoker presenting to the ER this morning for evaluation of generalized weakness not feeling well symptom has been going on f or the last few days, patient has been diagnosed with covid 19 pneumonia. On today's evaluation that is 06/14/2022, the patient remains to be afebrile, the patient is breathing comfortably on room air, the patient denies chest pain, the patient denies cough or any sputum production and no nausea vomiting no abdominal pain no diarrhea overall feeling better Objective - Vital Signs Vital signs: Vital Signs Temp 97.6 F 06/14/22 07:12 Pulse 67 06/14/22 07:12 Resp 16 06/14/22 07:12 BP 102/69 06/14/22 08:45 Pulse Ox 98 06/14/22 07:12 FiO2 Intake & Output 06/13/22 06/14/22 06/14/22 18:59 06:59 18:59 Output Total 400 600 Balance -400 -600 Output: Urine 400 600 Other: Voiding Method Urinal Urinal # Voids 3 - Exam GENERAL DESCRIPTION: Middle-aged male lying in bed in no distress RESPIRATORY SYSTEM: Unlabored breathing , decreased intensity of breath sounds HEART: S1 S2 regular rate and rhythm , ABDOMEN: Soft , no tenderness EXTREMITIES: No edema feet - Labs CBC & Chem 7: 06/14/22 04:33 06/14/22 04:33 Labs: Abnormal Lab Results - Last 24 Hours (Table) 06/14/22 06/14/22 Range/Units 04:33 04:33 WBC 14.53 H (4.50-10.00) X 10*3/uL RBC 2.97 L (4.40-5.60) X 10*6/uL Hgb 8.8 L (13.0-17.0) g/dL Hct 28.8 L (39.6-50.0) % MCHC 30.6 L (32.0-37.0) g/dL RDW 20.4 H (11.5-14.5) % Immature Gran # 0.27 H (0.00-0.04) X 10*3/uL Neutrophils # 10.41 H (1.80-7.70) X 10*3/uL Monocytes # 1.14 H (0.20-1.00) X 10*3/uL Carbon Dioxide 28.0 H (20.0-27.5) mmol/L Anion Gap 7.70 L (10.00-18.00) mmol/L BUN/Creatinine Ratio 22.27 H (12.00-20.00) Ratio Calcium 8.4 L (8.7-10.3) mg/dL ALT 55 H (10-49) U/L Total Protein 4.7 L (6.2-8.2) g/dL Albumin 2.9 L (3.8-4.9) g/dL Assessment and Plan (1) Coronavirus infection Current Visit: Yes Status: Acute Code(s): B34.2 - CORONAVIRUS INFECTION, UNSPECIFIED SNOMED Code(s): 058147667 Plan: 1patient presented to hospital with generalized weakness which is likely multifactorial in this patient with a likely component of dehydration with elevated BUN/creatinine and a component of COVID-19 pneumonia, patient has shown clinical improvement as for as covid 19 pneumonia, patient has completed his 5 day course of remdisivir patient to continue with the current supportive treatment of Lovenox and ascorbic acid 2-leukocytosis is more likely dexamethasone , however the patient did have a component of oral thrush could be contributing to this elevated white count , patient to continue with the nystatin swish and swallow, patient did have overall improvement as for his thrush is concerned and white count has come down to 14.5 thousand, plan is to continue with the nystatin swish and swallow for about a week and close outpatient follow-up Time with Patient: Less than 30
[2022-06-14 14:56] VITALS: BP 94/59; PULSE 68; TEMP 98.3
== END 2022-06-14 16:57 | disposition home health service (06) | DRG 177 ==
LOC: EC 10:08 → 6NMEDSUR 13:02 → OBSVTOIN 06-02 14:26 → 3SCARD 06-02 21:57 → 2SICU 06-03 00:49 → 4SSUR 06-06 11:46
PROVIDERS: ADMIT Internal Medicine; ATTEND Internal Medicine
PROC: XW043E5 Introduction of Remdesivir Anti-infective into Central Vein, Percutaneous Approach, New Technology Group 5 (ICD-10-PCS; 2022-06-02)
PROC: 0W3P8ZZ Control Bleeding in Gastrointestinal Tract, Via Natural or Artificial Opening Endoscopic (ICD-10-PCS; 2022-06-05)
PROC: 30283B1 Transfusion of Nonautologous 4-Factor Prothrombin Complex Concentrate into Vein, Percutaneous Approach (ICD-10-PCS; 2022-06-05)
PROC: 30233N1 Transfusion of Nonautologous Red Blood Cells into Peripheral Vein, Percutaneous Approach (ICD-10-PCS; principal; 2022-06-07)
DX: U07.1 COVID-19 (principal); J12.82 Pneumonia due to coronavirus disease 2019; J96.01 Acute respiratory failure with hypoxia; K26.4 Chronic or unspecified duodenal ulcer with hemorrhage; D62 Acute posthemorrhagic anemia; E87.20 Acidosis, unspecified; I45.2 Bifascicular block; J44.0 Chronic obstructive pulmonary disease with (acute) lower respiratory infection; N17.9 Acute kidney failure, unspecified; E78.5 Hyperlipidemia, unspecified; E86.0 Dehydration; H66.91 Otitis media, unspecified, right ear; M32.9 Systemic lupus erythematosus, unspecified; I95.9 Hypotension, unspecified; I10 Essential (primary) hypertension; I25.10 Atherosclerotic heart disease of native coronary artery without angina pectoris; I25.2 Old myocardial infarction; I45.10 Unspecified right bundle-branch block; I48.91 Unspecified atrial fibrillation; Z86.73 Personal history of transient ischemic attack (TIA), and cerebral infarction without residual deficits; K29.70 Gastritis, unspecified, without bleeding; K29.80 Duodenitis without bleeding; K44.9 Diaphragmatic hernia without obstruction or gangrene; Z79.899 Other long term (current) drug therapy; Z95.5 Presence of coronary angioplasty implant and graft; Z79.82 Long term (current) use of aspirin; Z79.02 Long term (current) use of antithrombotics/antiplatelets; Z88.0 Allergy status to penicillin
CPT/HCPCS: 36415; 43255; 71045; 71046; 80048; 80053; 83605; 83615; 83735; 84132; 84145; 84484; 85025; 85379; 86140; 86850; 86900; 86901; 86920; 87636; 93005; 93306; 93970; 94760; 96361; 96372; 96374; 99285

== ENCOUNTER 2022-09-21 10:12 | Day surgery (SDC) | payer OTHER ==
[2022-09-16 16:32] VITALS: BMI 31.7
[~2022-09-21 10:12] MED LIST: ALPRAZolam 0.25 MG TAB PO PRN; ALPRAZolam 0.5 MG TAB PO PRN; ASPIRIN 325 MG TAB PO ONE; NITROGLYCERIN SL TABS 0.4 MG TAB SUBLINGUAL PRN; SODIUM CHLORIDE 0.9% 1,000 ML in EMPTY BAG 1 BAG IV SCH
[2022-09-21] MEDS ORDERED: SODIUM CHLORIDE 0.9% 1,000 ML IV ONE (10:26)
[2022-09-21] MEDS ORDERED: CLOPIDOGREL 75 MG TAB ONE (10:32)
[2022-09-21 10:44] VITALS: RESP 16; TEMP 97.8
[2022-09-21 11:26] LABS: African American GFR (CKD) >90 (>60 ml/min/1.73 sqM); Anion Gap 7 mmol/L; Blood Urea Nitrogen 19 mg/dL (9-20); Calcium 9.5 mg/dL (8.4-10.2); Carbon Dioxide 30 mmol/L (22-30); Chloride 102 mmol/L (98-107); Glucose 81 mg/dL (74-99); Non-African American GFR(CKD) 83 (>60 ml/min/1.73 sqM); Potassium 4.6 mmol/L (3.5-5.1); Sodium 139 mmol/L (137-145)
[2022-09-21 11:35] LABS: Basophils % (A) 0 %; Eosinophils # (A) 0.2 k/uL (0-0.7); Eosinophils % (A) 3 %; HCT 40.2 % (39.0-53.0); HGB 13.1 gm/dL (13.0-17.5); Lymphocytes # (A) 1.6 k/uL (1.0-4.8); Lymphocytes % (A) 19 %; MCH 28.4 pg (25.0-35.0); MCHC 32.5 g/dL (31.0-37.0); MCV 87.4 fL (80.0-100.0); Mean Platelet Volume 7.2; Monocytes # (A) 0.5 k/uL (0-1.0); Monocytes % (A) 7 %; Neutrophils # (A) 5.7 k/uL (1.3-7.7); Neutrophils % (A) 70 %; Platelet Count 231 k/uL (150-450); RDW 13.3 % (11.5-15.5); WBC 8.2 k/uL (3.8-10.6)
[2022-09-21] MEDS ORDERED: fentaNYL (PF) 50 MCG/ML 2 ML AMP ONE (13:04)
[2022-09-21] MEDS ORDERED: LIDOCAINE 1% INJ 10MG/ML (5 ML VIAL-PF) SQ ONE (13:08)
[2022-09-21] MEDS ORDERED: HEPARIN SODIUM 1,000 UN/ML (10ML VL) ONE (13:10)
[2022-09-21] MEDS ORDERED: VERAPAMIL SYRINGE (5 MG/10 ML) INTRAARTER ONE (13:10)
[2022-09-21] MEDS ORDERED: MIDAZOLAM 2 MG/2 ML VIAL IV ONE (13:12)
[2022-09-21] MEDS ORDERED: HEPARIN SODIUM 1,000 UN/ML (10ML VL) IV ONE (13:13)
[2022-09-21] MEDS ORDERED: fentaNYL (PF) 50 MCG/ML 2 ML AMP IV ONE (13:13)
[2022-09-21] MEDS ORDERED: IOPAMIDOL-370 100ML BTL INJ ONE (13:23)
--- NOTE | 2022-09-21 18:56 | P.CARDCATH ---
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 The patient has indicated understanding and acceptance of the risks and procedures discussed. PROCEDURE: After the risks, benefits and alternatives of the above mentioned procedure explained in detail with the patient, informed consent was obtained. Patient was taken to the catheterization lab and prepped and draped in usual fashion. A 6-Honduran sheath was placed in the right radial artery using modified Seldinger technique. Left coronary angiography was performed with a 5- [place]uran JL 3.5 catheter and right coronary angiography was performed with a 5- [place] JR5 catheter in various views. There was an indeterminate LAD lesion with some reversibility in the apex on stress test and therefore decision was m lisandro to perform iFR. Heparin was given. A 0.014 pressure wire was advanced into the left main and normalized, through the 5Fr FL 3.5. It was then advanced 1 cm distal to the proximal LAD lesion and iFR was performed and was normal at 0.94. A 5-Honduran FR5 catheter was inserted into the left ventricle and pressure measurements were obtained. A TR band was placed with hemostasis achieved. The patient tolerated the procedure well. Patient was transported back to the post catheterization holding area in stable condition. Conscious Sedation: Patient was monitored under the direct supervision of myself for conscious sedation using Versed and fentanyl for a total duration of 15 minutes HEMODYNAMICS: Ao: 141/66 LV: 140/5, LVEDP 18 SELECTIVE CORONARY ARTERIOGRAPHY: LEFT MAIN: The left main is a large caliber vessel which bifurcates into the LAD and circumflex. There is no significant stenosis. LEFT ANTERIOR DESCENDING CORONARY ARTERY: LAD is a large caliber vessel which wraps around to the apex. The proximal LAD has diffuse disease including a more focal 60-70% proximal LAD stenosis and diffuse mid 20-30% stenosis. There are left to right collaterals to the RCA. LEFT CIRCUMFLEX CORONARY ARTERY: Left circumflex is a moderate caliber vessel has a mid circumflex stent which is patent. RIGHT CORONARY ARTERY: The right coronary artery is a large caliber vessel which gives off a PDA and PLV branch and is the dominant vessel. There is 100% proximal RCA stenosis FINAL IMPRESSION: 1. CAD as described above including 100% proximal RCA stenosis with left to right collaterals, 60-70% proximal LAD stenosis and patent circumflex stent 2. Normal iFR of pLAD at 0.94 3. Mildly elevated left sided filling pressures PLAN: 1. Aggressive risk factor modification per most recent ACC/AHA guidelines. 2. Recommend medical therapy of RCA MIXER AND SCALER with some history of similar MIXER AND SCALER in the past. Given normal iFR of proximal LAD continue with medical therapy however if having more anginal symptoms may consider reevaluating.
[2022-09-21 19:10] VITALS: PULSE 58
[2022-09-21 19:13] VITALS: BP 103/64
== END 2022-09-21 16:49 | disposition home or self-care (01) ==
LOC: CATHCVL 10:12
PROVIDERS: ATTEND Internal Medicine
DX: I25.10 Atherosclerotic heart disease of native coronary artery without angina pectoris (principal); I42.9 Cardiomyopathy, unspecified; I48.0 Paroxysmal atrial fibrillation; I10 Essential (primary) hypertension; Z82.49 Family history of ischemic heart disease and other diseases of the circulatory system; F17.210 Nicotine dependence, cigarettes, uncomplicated; Z79.01 Long term (current) use of anticoagulants; Z79.899 Other long term (current) drug therapy
CPT/HCPCS: 93458; 93799; 80048; 85025; C1769 ×2; C1894; J2250; J2001; J3010; J1644; Q9967